=== PATIENT | female | born 1975 | race Caucasian/White ===

== ENCOUNTER 2018-04-24 12:41 | Observation (INO) ==
[2018-04-24] MEDS: MORPHINE 4 MG/1 ML VIAL IV PRN ×3 (15:35→23:42)
[2018-04-24] MEDS: ONDANSETRON 4 MG/2 ML VIAL IV PRN ×3 (15:36→23:42)
[2018-04-24] MEDS ORDERED: traZODone 50 MG TABLET PO PRN (15:52)
[2018-04-24] MEDS ORDERED: CYCLOBENZAPRINE 10 MG TABLET PO PRN (15:52)
[2018-04-24] MEDS ORDERED: GLUCAGON 1 MG VIAL IM PRN (15:56)
[2018-04-24] MEDS ORDERED: DEXTROSE 50% 25 GM/50 ML SYRINGE IV PRN (15:56)
[2018-04-24] MEDS ORDERED: ALBUTEROL/IPRATROPIUM 3 ML NEB RESP TX PRN (16:00)
[2018-04-24] MEDS: NICOTINE 21 MG/24 HR PATCH TRANSDERM SCH (16:00)
[2018-04-24] MEDS ORDERED: MAGNESIUM SULF RIDER 2 GM in PREMIX 1 EACH IV PRN (16:10)
[2018-04-24] MEDS ORDERED: MAGNESIUM SULF RIDER 4 GM in PREMIX 1 EACH IV PRN (16:10)
[2018-04-24] MEDS ORDERED: cefTRIAXone 1,000 MG in SYRINGE 1 EACH IV SCH (20:00)
[2018-04-24] MEDS ORDERED: INSULIN GLARGINE 100 UNIT/ML SUBCUT SCH (21:00)
[2018-04-24] MEDS: DILTIAZEM 60 MG TABLET PO SCH (22:18)
[2018-04-24] MEDS: guaiFENesin/DM ER 600-30 MG TABLET PO SCH (22:19)
[2018-04-24] MEDS: SIMVASTATIN 20 MG TABLET PO SCH (22:19)
[2018-04-24] MEDS: INSULIN REGULAR 100 UNIT/ML SUBCUT SCH ×2 (22:20→22:37)
[2018-04-24] MEDS: CARVEDILOL 3.125 MG TABLET PO SCH (22:37)
[2018-04-25] MEDS: ONDANSETRON 4 MG/2 ML VIAL IV PRN (04:45)
[2018-04-25 05:39] LABS: Basophils # 0.1 10*3/uL (0.0-0.2); Basophils % 0.8 % (0.0-0.8); Eosinophils # 0.4 10*3/uL (0.0-0.87); Eosinophils % 3.4 % (0.00-10.9); Hematocrit 32.4 VOL% (35.7-47.0); Hemoglobin 10.4 GM/DL (12.0-16.0); Immature Granulocytes % 0.3 %; Immature Granulocytes Absolute 0.03 #; Lymphocytes # 2.8 10*3/uL (1.4-4.0); Lymphocytes % 27.6 % (21.3-54.2); Mean Corpuscular HGB Conc 32.1 GM/DL (32-36); Mean Corpuscular Hemoglobin 26 PG (27-34); Mean Platelet Volume 11.1 FL (9.6-12.0); Monocytes # 0.8 10*3/uL (0.11-0.8); Neutrophils # 6.1 10*3/uL (1.4-7.4); Neutrophils % 59.9 % (38.7-73.9); Platelet Count 323 T/CUMM (130-400); Red Blood Count 4.05 MC/CUMM (3.8-5.5); Red Cell Distribution Width 12.7 % (9.3-17.3); White Blood Count 10.2 T/CUMM (4-12)
[2018-04-25 05:45] LABS: Calcium 8.9 MG/DL (8.5-10.1); Osmolality,Calculated 282.8 MOS/KG (273-304)
[2018-04-25] MEDS: MORPHINE 4 MG/1 ML VIAL IV PRN ×2 (08:18→22:45)
[2018-04-25] MEDS ORDERED: FUROSEMIDE 40 MG TABLET PO SCH (09:00)
[2018-04-25] MEDS ORDERED: LISINOPRIL 10 MG TABLET PO SCH (09:00)
[2018-04-25] MEDS ORDERED: ASPIRIN EC 325 MG TABLET PO SCH (09:00)
[2018-04-25] MEDS ORDERED: SODIUM CHLORIDE 0.9% 1,000 ML IV ONE (11:02)
[2018-04-25] MEDS: INSULIN REGULAR 100 UNIT/ML SUBCUT SCH ×4 (11:22→21:54)
[2018-04-25] MEDS ORDERED: ceFAZolin 2,000 MG in PREMIX 1 EACH IV SCH (12:00)
[2018-04-25] MEDS: DILTIAZEM 60 MG TABLET PO SCH ×3 (13:04→21:53)
[2018-04-25] MEDS: PANTOPRAZOLE 40 MG TABLET PO SCH (13:04)
[2018-04-25] MEDS: ESCITALOPRAM 10 MG TABLET PO SCH (13:04)
[2018-04-25] MEDS: CARVEDILOL 3.125 MG TABLET PO SCH ×2 (13:05→17:09)
[2018-04-25] MEDS: guaiFENesin/DM ER 600-30 MG TABLET PO SCH ×2 (13:05→21:53)
[2018-04-25] MEDS: CLOPIDOGREL 75 MG TABLET PO SCH (13:05)
[2018-04-25] MEDS: NICOTINE 21 MG/24 HR PATCH TRANSDERM SCH (13:07)
[2018-04-25] MEDS: SODIUM CHLORIDE 0.9% 1,000 ML IV SCH (13:12)
[2018-04-25] MEDS ORDERED: ASPIRIN EC 81 MG TABLET PO SCH (17:04)
[2018-04-25] MEDS ORDERED: INSULIN GLARGINE 100 UNIT/ML SUBCUT SCH (17:11)
[2018-04-25] MEDS: ENOXAPARIN 40 MG/0.4 ML SYRINGE SUBCUT SCH (18:28)
[2018-04-25] MEDS: SIMVASTATIN 20 MG TABLET PO SCH (21:53)
[2018-04-25] MEDS: INSULIN LISPRO 100 UNIT/ML SUBCUT SCH (21:54)
[2018-04-26] MEDS: SODIUM CHLORIDE 0.9% 1,000 ML IV SCH ×2 (05:30→17:00)
[2018-04-26 05:44] LABS: Basophils # 0.1 10*3/uL (0.0-0.2); Basophils % 0.9 % (0.0-0.8); Eosinophils # 0.3 10*3/uL (0.0-0.87); Hematocrit 29.6 VOL% (35.7-47.0); Hemoglobin 9.2 GM/DL (12.0-16.0); Immature Granulocytes % 0.2 %; Immature Granulocytes Absolute 0.02 #; Lymphocytes # 2.2 10*3/uL (1.4-4.0); Lymphocytes % 27.5 % (21.3-54.2); Mean Corpuscular HGB Conc 31.1 GM/DL (32-36); Mean Corpuscular Hemoglobin 25 PG (27-34); Mean Corpuscular Volume 81.3 FL (87-102); Mean Platelet Volume 11.4 FL (9.6-12.0); Monocytes # 0.7 10*3/uL (0.11-0.8); Monocytes % 8.5 % (1.7-12.7); Neutrophils # 4.7 10*3/uL (1.4-7.4); Neutrophils % 58.9 % (38.7-73.9); Platelet Count 279 T/CUMM (130-400); Red Blood Count 3.64 MC/CUMM (3.8-5.5); Red Cell Distribution Width 12.8 % (9.3-17.3)
[2018-04-26 06:05] LABS: Calcium 8.4 MG/DL (8.5-10.1); Osmolality,Calculated 281.8 MOS/KG (273-304); Thyroid Stimulating Hormone 0.024 uIU/ml (0.358-3.74)
[2018-04-26] MEDS: INSULIN REGULAR 100 UNIT/ML SUBCUT SCH ×3 (09:58→16:59)
[2018-04-26] MEDS: INSULIN LISPRO 100 UNIT/ML SUBCUT SCH ×3 (09:58→17:00)
[2018-04-26] MEDS: ONDANSETRON 4 MG/2 ML VIAL IV PRN (11:40)
[2018-04-26] MEDS: PANTOPRAZOLE 40 MG TABLET PO SCH (13:08)
[2018-04-26] MEDS: CARVEDILOL 3.125 MG TABLET PO SCH ×2 (13:08→16:42)
[2018-04-26] MEDS: DILTIAZEM 60 MG TABLET PO SCH ×2 (13:08→16:40)
[2018-04-26] MEDS: ESCITALOPRAM 10 MG TABLET PO SCH (13:08)
[2018-04-26] MEDS: guaiFENesin/DM ER 600-30 MG TABLET PO SCH (13:08)
[2018-04-26] MEDS: CLOPIDOGREL 75 MG TABLET PO SCH (13:08)
[2018-04-26] MEDS: NICOTINE 21 MG/24 HR PATCH TRANSDERM SCH (13:11)
[2018-04-26] MEDS ORDERED: SODIUM HYPOCHLORITE 0.25% IRRIG 473 ML BOTTLE TOP SCH (15:00)
[2018-04-26] MEDS ORDERED: COLLAGENASE OINT 30 GM TUBE TOP SCH (15:00)
[2018-04-26 16:47] VITALS: BP 117/73
[2018-04-26] MEDS: ENOXAPARIN 40 MG/0.4 ML SYRINGE SUBCUT SCH (17:01)
== END 2018-04-26 16:54 | disposition home health service (06) ==
LOC: EDUNIT# → EDBD → N.ED 12:41 → N.EDINP 15:56 → SUATTDRO 15:56 → INTOOBSV 15:56 → N.TELEN 18:56
PROVIDERS: ADMIT Hospitalist; ATTEND Internal Medicine

== ENCOUNTER 2021-04-03 13:21 | Inpatient (IN) ==
[2021-04-03 15:45] LABS: Albumin 2.6 G/DL (3.4-5.0); Bilirubin,Total 0.4 MG/DL (0.20-1.00); Calcium 8.4 MG/DL (8.5-10.1); Osmolality,Calculated 286.5 MOS/KG (273-304); Potassium 3.7 MMOL/L (3.5-5.1); Total Protein 7.1 G/DL (6.4-8.2)
[2021-04-03 15:51] LABS: INR 1.2; PT Patient Result 12.9 SECS (10.5-12.0)
[2021-04-03 15:53] LABS: Basophils % 0.5 % (0.0-0.8); Eosinophils # 0.1 10*3/uL (0.0-0.87); Eosinophils % 1.1 % (0.00-10.9); Hematocrit 32.2 VOL% (35.7-47.0); Hemoglobin 9.1 GM/DL (12.0-16.0); Immature Granulocytes % 0.2 %; Immature Granulocytes Absolute 0.01 #; Lymphocytes # 1.9 10*3/uL (1.4-4.0); Lymphocytes % 28.9 % (21.3-54.2); Mean Corpuscular HGB Conc 28.3 GM/DL (32-36); Mean Corpuscular Volume 70.9 FL (87-102); Mean Platelet Volume 11.2 FL (9.6-12.0); Monocytes % 6.4 % (1.7-12.7); Neutrophils % 62.9 % (38.7-73.9); Platelet Count 384 T/CUMM (130-400); Red Blood Count 4.54 MC/CUMM (3.8-5.5); Red Cell Distribution Width 15.3 % (9.3-17.3); White Blood Count 6.4 T/CUMM (4-12)
[2021-04-03] MEDS ORDERED: MORPHINE 2 MG/1 ML SYRINGE IV STA (16:23)
[2021-04-03] MEDS ORDERED: MORPHINE 4 MG/1 ML VIAL IV STA (16:40)
[2021-04-03] MEDS ORDERED: NITROGLYCERIN SL 0.4 MG TABLET SL STA (16:42)
[2021-04-03] MEDS ORDERED: FUROSEMIDE 100 MG/10 ML VIAL IV STA (16:55)
[2021-04-03 17:13] LABS: Acanthocytes 1+; Howell-Jolly Bodies Few
[2021-04-03 17:14] LABS: Anisocytosis 2+; Hypochromia 1+; Ovalocytes 1+; Platelet Estimate Increased; Poikilocytosis 1+
[2021-04-03] MEDS ORDERED: ONDANSETRON 4 MG/2 ML VIAL IV PRN (17:20)
[2021-04-03] MEDS ORDERED: DOCUSATE SODIUM 100 MG CAPSULE PO PRN (17:20)
[2021-04-03] MEDS ORDERED: GLUCAGON 1 MG VIAL IM PRN (17:20)
[2021-04-03] MEDS ORDERED: ACETAMINOPHEN 325 MG TABLET PO PRN (17:20)
[2021-04-03] MEDS ORDERED: LACTULOSE 20 GM/30 ML UDCUP PO PRN (17:20)
[2021-04-03] MEDS ORDERED: DEXTROSE 10% 250 ML BAG IV PRN (17:31)
[2021-04-03] MEDS ORDERED: NITROGLYCERIN SL 0.4 MG TABLET SL PRN (17:43)
[2021-04-03] MEDS: ENOXAPARIN 40 MG/0.4 ML SYRINGE SUBCUT SCH (19:00)
[2021-04-03] MEDS: METOCLOPRAMIDE 5 MG TABLET PO SCH (22:12)
[2021-04-03] MEDS: INSULIN REGULAR 100 UNIT/ML SUBCUT SCH (22:13)
[2021-04-03] MEDS: FUROSEMIDE 40 MG/4 ML VIAL IV SCH (22:16)
[2021-04-04] MEDS ORDERED: MORPHINE 4 MG/1 ML VIAL IV ONE ×2 (01:30→11:29)
[2021-04-04 06:19] LABS: Calcium 9.2 MG/DL (8.5-10.1); Osmolality,Calculated 284.4 MOS/KG (273-304); Potassium 3.6 MMOL/L (3.5-5.1); Risk Ratio 4.04; Thyroid Stimulating Hormone 0.218 uIU/ml (0.358-3.74); VLDL Cholesterol 24.2 MG/DL
[2021-04-04 06:23] LABS: Basophils # 0.1 10*3/uL (0.0-0.2); Basophils % 0.8 % (0.0-0.8); Eosinophils # 0.1 10*3/uL (0.0-0.87); Eosinophils % 1.1 % (0.00-10.9); Hematocrit 30.7 VOL% (35.7-47.0); Immature Granulocytes % 0.2 %; Immature Granulocytes Absolute 0.01 #; Lymphocytes # 2.2 10*3/uL (1.4-4.0); Lymphocytes % 35.1 % (21.3-54.2); Mean Corpuscular HGB Conc 28.3 GM/DL (32-36); Mean Corpuscular Volume 70.7 FL (87-102); Mean Platelet Volume 10.9 FL (9.6-12.0); Monocytes % 7.5 % (1.7-12.7); Neutrophils % 55.3 % (38.7-73.9); Platelet Count 368 T/CUMM (130-400); Red Blood Count 4.34 MC/CUMM (3.8-5.5); Red Cell Distribution Width 15.4 % (9.3-17.3); White Blood Count 6.1 T/CUMM (4-12)
[2021-04-04 06:25] LABS: Hemoglobin 8.7 GM/DL (12.0-16.0)
[2021-04-04] MEDS ORDERED: carvediloL 3.125 MG TABLET PO SCH (08:00)
[2021-04-04] MEDS: INSULIN REGULAR 100 UNIT/ML SUBCUT SCH ×4 (08:57→21:04)
[2021-04-04] MEDS: FUROSEMIDE 40 MG/4 ML VIAL IV SCH ×2 (08:58→21:07)
[2021-04-04] MEDS: DAPAGLIFLOZIN 10 MG TABLET PO SCH (10:39)
[2021-04-04] MEDS: CLOPIDOGREL 75 MG TABLET PO SCH (10:39)
[2021-04-04] MEDS: METOCLOPRAMIDE 5 MG TABLET PO SCH ×4 (10:39→21:09)
[2021-04-04] MEDS: ASPIRIN EC 81 MG TABLET PO SCH (10:39)
[2021-04-04] MEDS ORDERED: SKIN HEALING OINT (AQUAPHOR) 50 GM TUBE TOP PRN (11:13)
[2021-04-04] MEDS ORDERED: MORPHINE 4 MG/1 ML VIAL ONE (11:31)
[2021-04-04] MEDS: NICOTINE 21 MG/24 HR PATCH TRANSDERM SCH (11:38)
[2021-04-04] MEDS ORDERED: MAGNESIUM SULF RIDER 4 GM/100 ML PREMIX IV PRN (11:44)
[2021-04-04] MEDS ORDERED: MAGNESIUM SULF RIDER 2 GM/50 ML PREMIX IV PRN (11:44)
[2021-04-04] MEDS ORDERED: HYDROmorphone 2 MG/1 ML VIAL IV ONE (15:41)
[2021-04-04] MEDS: PROMETHAZINE 25 MG TABLET PO PRN ×2 (16:45→23:12)
[2021-04-04] MEDS: ENOXAPARIN 40 MG/0.4 ML SYRINGE SUBCUT SCH (16:45)
[2021-04-04] MEDS: SACUBITRIL/VALSARTAN 49-51 MG TABLET PO SCH (21:01)
[2021-04-04] MEDS: carvediloL 6.25 MG TABLET PO SCH (21:02)
[2021-04-04] MEDS: SIMVASTATIN 20 MG TABLET PO SCH (21:02)
[2021-04-04] MEDS: MAGNESIUM CHLORIDE 64 MG TABLET PO SCH (21:02)
[2021-04-04] MEDS: MORPHINE 4 MG/1 ML VIAL IV PRN (23:58)
[2021-04-05 08:49] LABS: Calcium 8.6 MG/DL (8.5-10.1); Osmolality,Calculated 285.3 MOS/KG (273-304); Potassium 3.6 MMOL/L (3.5-5.1)
[2021-04-05] MEDS: METOCLOPRAMIDE 5 MG TABLET PO SCH ×4 (08:59→21:02)
[2021-04-05] MEDS: CLOPIDOGREL 75 MG TABLET PO SCH (08:59)
[2021-04-05] MEDS: NICOTINE 21 MG/24 HR PATCH TRANSDERM SCH (08:59)
[2021-04-05] MEDS: SACUBITRIL/VALSARTAN 49-51 MG TABLET PO SCH ×2 (09:00→21:02)
[2021-04-05] MEDS: MAGNESIUM CHLORIDE 64 MG TABLET PO SCH ×2 (09:00→21:02)
[2021-04-05] MEDS: DAPAGLIFLOZIN 10 MG TABLET PO SCH (09:00)
[2021-04-05] MEDS: ASPIRIN EC 81 MG TABLET PO SCH (09:00)
[2021-04-05] MEDS: INSULIN REGULAR 100 UNIT/ML SUBCUT SCH ×4 (09:48→21:02)
[2021-04-05] MEDS: FUROSEMIDE 40 MG/4 ML VIAL IV SCH ×2 (09:48→21:07)
[2021-04-05] MEDS: carvediloL 6.25 MG TABLET PO SCH (09:49)
[2021-04-05] MEDS: MORPHINE 4 MG/1 ML VIAL IV PRN ×2 (10:08→15:38)
[2021-04-05 11:52] LABS: Hypochromia 3+; Ovalocytes 1+
[2021-04-05 11:53] LABS: Microcytosis 3+; Platelet Estimate Normal; Polychromasia Slight; Target Cells Few
[2021-04-05 12:12] LABS: Basophils % 0.9 % (0.0-0.8); Eosinophils # 0.1 10*3/uL (0.0-0.87); Eosinophils % 1.9 % (0.00-10.9); Hematocrit 30.3 VOL% (35.7-47.0); Hemoglobin 8.5 GM/DL (12.0-16.0); Immature Granulocytes % 0.2 %; Immature Granulocytes Absolute 0.01 #; Lymphocytes # 1.4 10*3/uL (1.4-4.0); Mean Corpuscular HGB Conc 28.1 GM/DL (32-36); Mean Corpuscular Volume 70.6 FL (87-102); Mean Platelet Volume 11.3 FL (9.6-12.0); Monocytes % 5.8 % (1.7-12.7); Neutrophils % 60.2 % (38.7-73.9); Platelet Count 334 T/CUMM (130-400); Red Blood Count 4.29 MC/CUMM (3.8-5.5); Red Cell Distribution Width 15.4 % (9.3-17.3); White Blood Count 4.7 T/CUMM (4-12)
[2021-04-05] MEDS: ENOXAPARIN 40 MG/0.4 ML SYRINGE SUBCUT SCH (17:56)
[2021-04-05] MEDS: diphenhydrAMINE 50 MG/1 ML VIAL IV PRN (18:25)
[2021-04-05] MEDS: carvediloL 12.5 MG TABLET PO SCH (21:02)
[2021-04-05] MEDS: SIMVASTATIN 20 MG TABLET PO SCH (21:02)
[2021-04-06] MEDS: PROMETHAZINE 25 MG TABLET PO PRN (01:08)
[2021-04-06] MEDS: MORPHINE 4 MG/1 ML VIAL IV PRN ×2 (01:08→10:11)
[2021-04-06 05:48] LABS: Calcium 8.8 MG/DL (8.5-10.1); Osmolality,Calculated 287.3 MOS/KG (273-304); Potassium 3.5 MMOL/L (3.5-5.1)
[2021-04-06 06:23] LABS: Basophils % 0.6 % (0.0-0.8); Eosinophils # 0.1 10*3/uL (0.0-0.87); Eosinophils % 1.8 % (0.00-10.9); Hematocrit 29.6 VOL% (35.7-47.0); Hemoglobin 8.4 GM/DL (12.0-16.0); Immature Granulocytes % 0.2 %; Immature Granulocytes Absolute 0.01 #; Lymphocytes # 1.3 10*3/uL (1.4-4.0); Mean Corpuscular HGB Conc 28.4 GM/DL (32-36); Mean Corpuscular Volume 70.5 FL (87-102); Mean Platelet Volume 10.9 FL (9.6-12.0); Neutrophils % 64.4 % (38.7-73.9); Platelet Count 307 T/CUMM (130-400); Red Cell Distribution Width 15.4 % (9.3-17.3)
[2021-04-06] MEDS: MAGNESIUM CHLORIDE 64 MG TABLET PO SCH (08:43)
[2021-04-06] MEDS: ASPIRIN EC 81 MG TABLET PO SCH (08:43)
[2021-04-06] MEDS: METOCLOPRAMIDE 5 MG TABLET PO SCH ×2 (08:44→11:43)
[2021-04-06] MEDS: DAPAGLIFLOZIN 10 MG TABLET PO SCH (08:44)
[2021-04-06] MEDS: SACUBITRIL/VALSARTAN 49-51 MG TABLET PO SCH (08:44)
[2021-04-06] MEDS: CLOPIDOGREL 75 MG TABLET PO SCH (08:44)
[2021-04-06] MEDS: carvediloL 12.5 MG TABLET PO SCH (08:44)
[2021-04-06] MEDS: INSULIN REGULAR 100 UNIT/ML SUBCUT SCH ×2 (08:47→11:51)
[2021-04-06] MEDS: FUROSEMIDE 40 MG/4 ML VIAL IV SCH (08:51)
[2021-04-06] MEDS: diphenhydrAMINE 50 MG/1 ML VIAL IV PRN (08:52)
[2021-04-06] MEDS: NICOTINE 21 MG/24 HR PATCH TRANSDERM SCH (08:53)
[2021-04-06 12:42] VITALS: BP 97/68
[2021-04-06] MEDS ORDERED: carvediloL 6.25 MG TABLET PO SCH (21:00)
== END 2021-04-06 14:44 | disposition home or self-care (01) | DRG 291 ==
LOC: N.EDINP 13:21 → N.ED 13:21 → SUATTDRO 17:19 → N.EDINP 19:54 → N.TELEN 20:00
PROVIDERS: ADMIT Internal Medicine; ATTEND Internal Medicine

== ENCOUNTER 2021-05-06 14:06 | Inpatient (IN) ==
[2021-05-06] MEDS ORDERED: GLUCAGON 1 MG VIAL IM PRN (16:57)
[2021-05-06] MEDS ORDERED: DEXTROSE 50% 25 GM/50 ML VIAL IV PRN (16:57)
[2021-05-06] MEDS ORDERED: SIMETHICONE CHEW 125 MG TABLET PO PRN (17:26)
[2021-05-06] MEDS ORDERED: BISACODYL 5 MG TABLET PO PRN (17:26)
[2021-05-06] MEDS ORDERED: DOCUSATE SODIUM 100 MG CAPSULE PO PRN (17:26)
[2021-05-06] MEDS ORDERED: ALBUTEROL/IPRATROPIUM 3 ML NEB RESP TX PRN (17:26)
[2021-05-06] MEDS ORDERED: SODIUM CHLORIDE 0.9% 1,000 ML IV SCH (17:30)
[2021-05-06 18:07] LABS: Alanine Aminotransferase 11 U/L (13-56); Albumin 1.3 G/DL (3.4-5.0); Alkaline Phosphatase 91 U/L (45-117); Aspartate Amino Transferase 9 U/L (0-37); Bilirubin,Total < 0.39 MG/DL (0.20-1.00); Blood Urea Nitrogen 39 MG/DL (7-18); Calcium 8.2 MG/DL (8.5-10.1); Carbon Dioxide 19 MMOL/L (21-32); Chloride 119 MMOL/L (98-107); Estimated Glom Filtration Rate 25 ML/MIN; Glucose 135 MG/DL (74-106); Osmolality,Calculated 296.8 MOS/KG (273-304); Potassium 3.7 MMOL/L (3.5-5.1); Sodium 144 MMOL/L (136-145); Total Protein 7.2 G/DL (6.4-8.2)
[2021-05-06 18:10] LABS: Basophils % 0.4 % (0.0-0.8); Eosinophils # 0.1 10*3/uL (0.0-0.87); Eosinophils % 1.3 % (0.00-10.9); Hematocrit 32.5 VOL% (35.7-47.0); Hemoglobin 9.1 GM/DL (12.0-16.0); Immature Granulocytes % 0.5 %; Immature Granulocytes Absolute 0.04 #; Lymphocytes # 1.4 10*3/uL (1.4-4.0); Mean Corpuscular Volume 74.4 FL (87-102); Mean Platelet Volume 10.5 FL (9.6-12.0); Monocytes # 0.4 10*3/uL (0.11-0.8); Monocytes % 4.3 % (1.7-12.7); Neutrophils % 77.5 % (38.7-73.9); Platelet Count 350 T/CUMM (130-400); Red Blood Count 4.37 MC/CUMM (3.8-5.5); Red Cell Distribution Width 21.4 % (9.3-17.3); White Blood Count 8.5 T/CUMM (4-12)
[2021-05-06 18:15] LABS: Anisocytosis 1+; Hypochromia 1+; Microcytosis 1+; Platelet Estimate Adequate
[2021-05-06] MEDS: PROMETHAZINE 25 MG/1 ML VIAL IM PRN (18:25)
[2021-05-06] MEDS: PIPERACILLIN/TAZOBACTAM 3,375 MG in SODIUM CHLORIDE 0.9% 100 ML IV SCH (18:25)
[2021-05-06] MEDS ORDERED: ALBUMIN 25% 25 GM/100 ML VIAL IV ONE (20:00)
[2021-05-06] MEDS: BENZTROPINE 1 MG TABLET PO SCH (20:56)
[2021-05-06] MEDS: SIMVASTATIN 20 MG TABLET PO SCH (20:56)
[2021-05-06] MEDS: DILTIAZEM 30 MG TABLET PO SCH (20:56)
[2021-05-06] MEDS: PANTOPRAZOLE 40 MG VIAL IV SCH (20:57)
[2021-05-06] MEDS: ENOXAPARIN 40 MG/0.4 ML SYRINGE SUBCUT SCH (20:57)
[2021-05-06] MEDS: INSULIN LISPRO 100 UNIT/ML SUBCUT SCH (20:58)
[2021-05-06] MEDS: HYDROmorphone 1 MG/1 ML SYRINGE IV PRN (20:59)
[2021-05-06] MEDS ORDERED: VANCOMYCIN INJ 2,500 MG in SODIUM CHLORIDE 0.9% 500 ML IV ONE (21:00)
[2021-05-06] MEDS: SODIUM CHLOR 0.45% KCL 20 MEQ 20 MEQ/1,000 ML BAG IV SCH (23:26)
[2021-05-07] MEDS: PIPERACILLIN/TAZOBACTAM 3,375 MG in SODIUM CHLORIDE 0.9% 100 ML IV SCH ×2 (02:09→09:45)
[2021-05-07] MEDS: HYDROmorphone 1 MG/1 ML SYRINGE IV PRN ×5 (05:08→22:19)
[2021-05-07 05:51] LABS: Risk Ratio 2.43
[2021-05-07 05:54] LABS: Basophils % 0.4 % (0.0-0.8); Eosinophils # 0.1 10*3/uL (0.0-0.87); Eosinophils % 1.1 % (0.00-10.9); Hemoglobin 9.1 GM/DL (12.0-16.0); Immature Granulocytes % 0.5 %; Immature Granulocytes Absolute 0.04 #; Lymphocytes # 1.7 10*3/uL (1.4-4.0); Lymphocytes % 19.6 % (21.3-54.2); Mean Corpuscular HGB Conc 28.7 GM/DL (32-36); Mean Corpuscular Volume 73.9 FL (87-102); Mean Platelet Volume 10.5 FL (9.6-12.0); Monocytes # 0.4 10*3/uL (0.11-0.8); Monocytes % 4.8 % (1.7-12.7); Neutrophils % 73.6 % (38.7-73.9); Platelet Count 334 T/CUMM (130-400); Red Blood Count 4.29 MC/CUMM (3.8-5.5); Red Cell Distribution Width 21.6 % (9.3-17.3); White Blood Count 8.4 T/CUMM (4-12)
[2021-05-07 05:55] LABS: Hematocrit 31.7 VOL% (35.7-47.0)
[2021-05-07 06:00] LABS: Alanine Aminotransferase < 6 U/L (13-56); Albumin 1.8 G/DL (3.4-5.0); Alkaline Phosphatase 88 U/L (45-117); Aspartate Amino Transferase 8 U/L (0-37); Blood Urea Nitrogen 40 MG/DL (7-18); Calcium 8.6 MG/DL (8.5-10.1); Carbon Dioxide 19 MMOL/L (21-32); Chloride 118 MMOL/L (98-107); Estimated Glom Filtration Rate 28 ML/MIN; Glucose 93 MG/DL (74-106); Potassium 3.4 MMOL/L (3.5-5.1); Sodium 143 MMOL/L (136-145); Total Protein 7.2 G/DL (6.4-8.2)
[2021-05-07 06:09] LABS: Hypochromia 1+; Microcytosis 2+; Ovalocytes Few; Platelet Estimate Normal
[2021-05-07] MEDS: INSULIN LISPRO 100 UNIT/ML SUBCUT SCH ×4 (07:33→21:52)
[2021-05-07] MEDS: CLOPIDOGREL 75 MG TABLET PO SCH (08:05)
[2021-05-07] MEDS: ASPIRIN EC 81 MG TABLET PO SCH (08:05)
[2021-05-07] MEDS: ESCITALOPRAM 10 MG TABLET PO SCH (08:05)
[2021-05-07] MEDS ORDERED: VANCOMYCIN INJ 1,500 MG in SODIUM CHLORIDE 0.9% 500 ML IV PRN (08:06)
[2021-05-07] MEDS ORDERED: PANTOPRAZOLE 40 MG TABLET PO SCH (09:00)
[2021-05-07] MEDS: PANTOPRAZOLE 40 MG VIAL IV SCH ×2 (09:45→20:29)
[2021-05-07] MEDS: DILTIAZEM 30 MG TABLET PO SCH ×3 (09:46→20:29)
[2021-05-07] MEDS: NYSTATIN/TRIAMCINOLONE CREAM 15 GM TUBE TOP SCH ×2 (09:46→21:52)
[2021-05-07] MEDS: BENZTROPINE 1 MG TABLET PO SCH ×2 (09:46→20:29)
[2021-05-07] MEDS: PROMETHAZINE 25 MG/1 ML VIAL IM PRN (14:19)
[2021-05-07] MEDS: CEFEPIME 1,000 MG in SODIUM CHLORIDE 0.9% 100 ML IV SCH (17:40)
[2021-05-07] MEDS: SIMVASTATIN 20 MG TABLET PO SCH (20:29)
[2021-05-07] MEDS: CYCLOBENZAPRINE 10 MG TABLET PO PRN (20:29)
[2021-05-07] MEDS: ENOXAPARIN 40 MG/0.4 ML SYRINGE SUBCUT SCH (20:29)
[2021-05-07] MEDS: SODIUM CHLOR 0.45% KCL 20 MEQ 20 MEQ/1,000 ML BAG IV SCH (21:52)
[2021-05-08] MEDS: PROMETHAZINE 25 MG/1 ML VIAL IM PRN ×4 (04:23→21:16)
[2021-05-08] MEDS: HYDROmorphone 1 MG/1 ML SYRINGE IV PRN ×4 (04:23→21:17)
[2021-05-08] MEDS: CEFEPIME 1,000 MG in SODIUM CHLORIDE 0.9% 100 ML IV SCH ×3 (05:38→21:17)
[2021-05-08 06:21] LABS: Basophils % 0.4 % (0.0-0.8); Eosinophils # 0.1 10*3/uL (0.0-0.87); Eosinophils % 1.1 % (0.00-10.9); Hemoglobin 8.6 GM/DL (12.0-16.0); Immature Granulocytes % 0.6 %; Immature Granulocytes Absolute 0.05 #; Lymphocytes # 1.1 10*3/uL (1.4-4.0); Lymphocytes % 12.4 % (21.3-54.2); Mean Corpuscular HGB Conc 28.4 GM/DL (32-36); Mean Corpuscular Volume 73.9 FL (87-102); Mean Platelet Volume 10.8 FL (9.6-12.0); Monocytes # 0.5 10*3/uL (0.11-0.8); Monocytes % 5.4 % (1.7-12.7); Neutrophils % 80.1 % (38.7-73.9); Platelet Count 299 T/CUMM (130-400); Red Cell Distribution Width 21.9 % (9.3-17.3); White Blood Count 8.5 T/CUMM (4-12)
[2021-05-08 06:23] LABS: Hematocrit 30.3 VOL% (35.7-47.0)
[2021-05-08 06:24] LABS: Phosphorous 4.7 MG/DL (2.5-4.9)
[2021-05-08 06:25] LABS: Alanine Aminotransferase < 6 U/L (13-56); Albumin 1.4 G/DL (3.4-5.0); Alkaline Phosphatase 90 U/L (45-117); Aspartate Amino Transferase 9 U/L (0-37); Blood Urea Nitrogen 31 MG/DL (7-18); Calcium 8.2 MG/DL (8.5-10.1); Carbon Dioxide 19 MMOL/L (21-32); Chloride 120 MMOL/L (98-107); Estimated Glom Filtration Rate 34 ML/MIN; Glucose 101 MG/DL (74-106); Osmolality,Calculated 296.6 MOS/KG (273-304); Sodium 146 MMOL/L (136-145); Total Protein 6.9 G/DL (6.4-8.2)
[2021-05-08 06:40] LABS: % Iron Saturation 15.7 % (18-50); Ferritin 37.9 ng/mL (8-252)
[2021-05-08 07:12] LABS: Platelet Estimate Decreased
[2021-05-08 07:34] LABS: Mucus,Urine Occasional /LPF (Occasional); RBC,Urine 235 /HPF (0-4); Squamous Epithelial Cell,Urine Occasional /HPF (0-10)
[2021-05-08 07:35] LABS: Bilirubin,Urine Negative (Negative); Blood, Urine Large mg/dL (Negative); Glucose,Urine (UA) Negative (Negative); Ketones,Urine Negative (Negative); Nitrite,Urine Negative (Negative); Protein,Urine 30 mg/dL (Negative); Urine Appearance Slightly Cloudy (Clear); Urine Color Yellow (Yellow); Urine Specific Gravity 1.015 (1.001-1.035); Urine pH 7.5 (4.5-8.0)
[2021-05-08 07:36] LABS: Urine Urobilinogen 0.2 eU/dL (<2.0)
[2021-05-08] MEDS: PANTOPRAZOLE 40 MG VIAL IV SCH ×2 (10:11→21:16)
[2021-05-08] MEDS: INSULIN LISPRO 100 UNIT/ML SUBCUT SCH ×3 (12:54→21:39)
[2021-05-08] MEDS: DILTIAZEM 30 MG TABLET PO SCH ×3 (13:16→21:16)
[2021-05-08] MEDS: ESCITALOPRAM 10 MG TABLET PO SCH (13:16)
[2021-05-08] MEDS: CLOPIDOGREL 75 MG TABLET PO SCH (13:16)
[2021-05-08] MEDS: ASPIRIN EC 81 MG TABLET PO SCH (13:16)
[2021-05-08] MEDS: BENZTROPINE 1 MG TABLET PO SCH ×2 (13:17→21:16)
[2021-05-08] MEDS: NYSTATIN/TRIAMCINOLONE CREAM 15 GM TUBE TOP SCH ×2 (13:18→21:17)
[2021-05-08] MEDS: ZINC OXIDE PASTE 113 GM TUBE TOP SCH ×2 (15:06→21:17)
[2021-05-08] MEDS: NICOTINE 21 MG/24 HR PATCH TRANSDERM SCH (18:07)
[2021-05-08] MEDS: SODIUM CHLOR 0.45% KCL 20 MEQ 20 MEQ/1,000 ML BAG IV SCH (18:08)
[2021-05-08] MEDS: ENOXAPARIN 40 MG/0.4 ML SYRINGE SUBCUT SCH (21:15)
[2021-05-08] MEDS: SIMVASTATIN 20 MG TABLET PO SCH (21:16)
[2021-05-08] MEDS: buPROPion SR 100 MG TABLET PO SCH (21:16)
[2021-05-08] MEDS: traZODone 50 MG TABLET PO PRN (21:16)
[2021-05-09] MEDS: HYDROmorphone 1 MG/1 ML SYRINGE IV PRN ×5 (01:27→20:54)
[2021-05-09] MEDS: SODIUM CHLOR 0.45% KCL 20 MEQ 20 MEQ/1,000 ML BAG IV SCH ×2 (03:00→14:31)
[2021-05-09] MEDS: PROMETHAZINE 25 MG/1 ML VIAL IM PRN ×4 (04:47→21:49)
[2021-05-09] MEDS: CEFEPIME 1,000 MG in SODIUM CHLORIDE 0.9% 100 ML IV SCH ×3 (05:30→21:01)
[2021-05-09 07:24] LABS: Basophils % 0.5 % (0.0-0.8); Eosinophils # 0.1 10*3/uL (0.0-0.87); Eosinophils % 1.2 % (0.00-10.9); Hematocrit 32.7 VOL% (35.7-47.0); Hemoglobin 9.1 GM/DL (12.0-16.0); Immature Granulocytes % 0.5 %; Immature Granulocytes Absolute 0.04 #; Lymphocytes # 1.3 10*3/uL (1.4-4.0); Lymphocytes % 16.9 % (21.3-54.2); Mean Corpuscular HGB Conc 27.8 GM/DL (32-36); Mean Corpuscular Volume 75.5 FL (87-102); Mean Platelet Volume 11.1 FL (9.6-12.0); Monocytes # 0.3 10*3/uL (0.11-0.8); Monocytes % 4.5 % (1.7-12.7); Neutrophils % 76.4 % (38.7-73.9); Platelet Count 290 T/CUMM (130-400); Red Blood Count 4.33 MC/CUMM (3.8-5.5); Red Cell Distribution Width 22.1 % (9.3-17.3); White Blood Count 7.4 T/CUMM (4-12)
[2021-05-09 07:28] LABS: Alanine Aminotransferase < 6 U/L (13-56); Albumin 1.5 G/DL (3.4-5.0); Alkaline Phosphatase 88 U/L (45-117); Aspartate Amino Transferase 11 U/L (0-37); Blood Urea Nitrogen 26 MG/DL (7-18); Calcium 8.7 MG/DL (8.5-10.1); Carbon Dioxide 17 MMOL/L (21-32); Chloride 119 MMOL/L (98-107); Estimated Glom Filtration Rate 41 ML/MIN; Glucose 117 MG/DL (74-106); Osmolality,Calculated 293.7 MOS/KG (273-304); Potassium 4.2 MMOL/L (3.5-5.1); Sodium 145 MMOL/L (136-145)
[2021-05-09] MEDS: INSULIN LISPRO 100 UNIT/ML SUBCUT SCH ×4 (08:05→21:02)
[2021-05-09] MEDS: ASPIRIN EC 81 MG TABLET PO SCH (09:44)
[2021-05-09] MEDS: DILTIAZEM 30 MG TABLET PO SCH ×3 (09:45→20:52)
[2021-05-09] MEDS: ESCITALOPRAM 10 MG TABLET PO SCH (09:45)
[2021-05-09] MEDS: BENZTROPINE 1 MG TABLET PO SCH ×2 (09:45→21:49)
[2021-05-09] MEDS: CLOPIDOGREL 75 MG TABLET PO SCH (09:45)
[2021-05-09] MEDS: buPROPion SR 100 MG TABLET PO SCH (09:45)
[2021-05-09] MEDS: NYSTATIN/TRIAMCINOLONE CREAM 15 GM TUBE TOP SCH ×2 (09:46→21:01)
[2021-05-09] MEDS: ZINC OXIDE PASTE 113 GM TUBE TOP SCH ×2 (09:46→21:01)
[2021-05-09] MEDS: NICOTINE 21 MG/24 HR PATCH TRANSDERM SCH (09:47)
[2021-05-09] MEDS: PANTOPRAZOLE 40 MG VIAL IV SCH ×2 (09:53→20:53)
[2021-05-09] MEDS: busPIRone 5 MG TABLET PO SCH ×2 (14:28→20:53)
[2021-05-09] MEDS: ENOXAPARIN 40 MG/0.4 ML SYRINGE SUBCUT SCH (20:52)
[2021-05-09] MEDS: SIMVASTATIN 20 MG TABLET PO SCH (20:53)
[2021-05-09] MEDS: traZODone 50 MG TABLET PO PRN (20:53)
[2021-05-10] MEDS: HYDROmorphone 1 MG/1 ML SYRINGE IV PRN ×5 (02:06→20:54)
[2021-05-10] MEDS: PROMETHAZINE 25 MG/1 ML VIAL IM PRN ×3 (03:31→18:08)
[2021-05-10 05:39] LABS: Basophils # 0.1 10*3/uL (0.0-0.2); Basophils % 0.8 % (0.0-0.8); Eosinophils # 0.1 10*3/uL (0.0-0.87); Eosinophils % 1.3 % (0.00-10.9); Hematocrit 31.7 VOL% (35.7-47.0); Immature Granulocytes % 0.4 %; Immature Granulocytes Absolute 0.03 #; Lymphocytes # 1.1 10*3/uL (1.4-4.0); Lymphocytes % 13.9 % (21.3-54.2); Mean Corpuscular HGB Conc 28.4 GM/DL (32-36); Mean Corpuscular Volume 75.5 FL (87-102); Mean Platelet Volume 11.1 FL (9.6-12.0); Monocytes # 0.3 10*3/uL (0.11-0.8); Monocytes % 4.3 % (1.7-12.7); Neutrophils % 79.3 % (38.7-73.9); Platelet Count 273 T/CUMM (130-400); Red Cell Distribution Width 22.5 % (9.3-17.3); White Blood Count 7.9 T/CUMM (4-12)
[2021-05-10] MEDS: SODIUM CHLOR 0.45% KCL 20 MEQ 20 MEQ/1,000 ML BAG IV SCH ×2 (05:41→18:05)
[2021-05-10 05:49] LABS: Alanine Aminotransferase < 9 U/L (13-56); Albumin 1.5 G/DL (3.4-5.0); Alkaline Phosphatase 87 U/L (45-117); Aspartate Amino Transferase 11 U/L (0-37); Blood Urea Nitrogen 21 MG/DL (7-18); Calcium 8.8 MG/DL (8.5-10.1); Carbon Dioxide 17 MMOL/L (21-32); Chloride 121 MMOL/L (98-107); Estimated Glom Filtration Rate 50 ML/MIN; Glucose 129 MG/DL (74-106); Osmolality,Calculated 292.7 MOS/KG (273-304); Potassium 4.5 MMOL/L (3.5-5.1); Sodium 145 MMOL/L (136-145); Total Protein 7.3 G/DL (6.4-8.2)
[2021-05-10] MEDS: CEFEPIME 1,000 MG in SODIUM CHLORIDE 0.9% 100 ML IV SCH ×3 (06:09→21:58)
[2021-05-10] MEDS: INSULIN LISPRO 100 UNIT/ML SUBCUT SCH ×4 (08:23→22:25)
[2021-05-10] MEDS: buPROPion SR 100 MG TABLET PO SCH (10:18)
[2021-05-10] MEDS: ASPIRIN EC 81 MG TABLET PO SCH (10:18)
[2021-05-10] MEDS: CHOLECALCIFEROL 1,000 UNIT TABLET PO SCH (10:18)
[2021-05-10] MEDS: CLOPIDOGREL 75 MG TABLET PO SCH (10:18)
[2021-05-10] MEDS: DILTIAZEM 30 MG TABLET PO SCH ×3 (10:18→20:52)
[2021-05-10] MEDS: ZINC OXIDE PASTE 113 GM TUBE TOP SCH ×2 (10:19→20:55)
[2021-05-10] MEDS: busPIRone 5 MG TABLET PO SCH ×2 (10:19→20:53)
[2021-05-10] MEDS: ESCITALOPRAM 10 MG TABLET PO SCH (10:19)
[2021-05-10] MEDS: BENZTROPINE 1 MG TABLET PO SCH ×2 (10:19→22:25)
[2021-05-10] MEDS: NICOTINE 21 MG/24 HR PATCH TRANSDERM SCH (10:20)
[2021-05-10] MEDS: NYSTATIN/TRIAMCINOLONE CREAM 15 GM TUBE TOP SCH ×2 (10:20→20:55)
[2021-05-10] MEDS: PANTOPRAZOLE 40 MG VIAL IV SCH ×2 (10:23→20:53)
[2021-05-10] MEDS: traZODone 50 MG TABLET PO PRN (20:52)
[2021-05-10] MEDS: SIMVASTATIN 20 MG TABLET PO SCH (20:53)
[2021-05-10] MEDS: ENOXAPARIN 40 MG/0.4 ML SYRINGE SUBCUT SCH (20:53)
[2021-05-11] MEDS: PROMETHAZINE 25 MG/1 ML VIAL IM PRN ×2 (00:18→06:19)
[2021-05-11] MEDS: HYDROmorphone 1 MG/1 ML SYRINGE IV PRN ×3 (02:00→13:59)
[2021-05-11] MEDS: SODIUM CHLOR 0.45% KCL 20 MEQ 20 MEQ/1,000 ML BAG IV SCH ×2 (05:01→22:46)
[2021-05-11] MEDS: CEFEPIME 1,000 MG in SODIUM CHLORIDE 0.9% 100 ML IV SCH ×3 (05:50→22:45)
[2021-05-11] MEDS: INSULIN LISPRO 100 UNIT/ML SUBCUT SCH ×4 (07:37→23:04)
[2021-05-11 07:53] LABS: Alanine Aminotransferase < 9 U/L (13-56); Albumin 1.7 G/DL (3.4-5.0); Alkaline Phosphatase 88 U/L (45-117); Aspartate Amino Transferase 9 U/L (0-37); Blood Urea Nitrogen 20 MG/DL (7-18); Calcium 8.7 MG/DL (8.5-10.1); Carbon Dioxide 18 MMOL/L (21-32); Chloride 119 MMOL/L (98-107); Estimated Glom Filtration Rate 54 ML/MIN; Glucose 167 MG/DL (74-106); Osmolality,Calculated 289.1 MOS/KG (273-304); Potassium 4.9 MMOL/L (3.5-5.1); Sodium 142 MMOL/L (136-145); Total Protein 7.3 G/DL (6.4-8.2)
[2021-05-11 07:54] LABS: Basophils % 0.4 % (0.0-0.8); Eosinophils # 0.1 10*3/uL (0.0-0.87); Eosinophils % 1.1 % (0.00-10.9); Immature Granulocytes % 0.3 %; Immature Granulocytes Absolute 0.03 #; Lymphocytes # 0.9 10*3/uL (1.4-4.0); Lymphocytes % 9.8 % (21.3-54.2); Mean Corpuscular HGB Conc 28.5 GM/DL (32-36); Mean Corpuscular Volume 75.5 FL (87-102); Mean Platelet Volume 11.6 FL (9.6-12.0); Monocytes # 0.3 10*3/uL (0.11-0.8); Monocytes % 3.7 % (1.7-12.7); Neutrophils % 84.7 % (38.7-73.9); Platelet Count 260 T/CUMM (130-400); Red Blood Count 4.37 MC/CUMM (3.8-5.5); Red Cell Distribution Width 23.1 % (9.3-17.3); White Blood Count 8.9 T/CUMM (4-12)
[2021-05-11 07:58] LABS: Hemoglobin 9.4 GM/DL (12.0-16.0)
[2021-05-11] MEDS ORDERED: hydrOXYzine HCL 25 MG/1 ML VIAL IM PRN (08:21)
[2021-05-11] MEDS: VANCOMYCIN INJ 1,500 MG in SODIUM CHLORIDE 0.9% 500 ML IV SCH (09:09)
[2021-05-11] MEDS: diphenhydrAMINE 50 MG/1 ML VIAL IV PRN (09:13)
[2021-05-11] MEDS: ASPIRIN EC 81 MG TABLET PO SCH (09:52)
[2021-05-11] MEDS: busPIRone 5 MG TABLET PO SCH (09:52)
[2021-05-11] MEDS: DILTIAZEM 30 MG TABLET PO SCH ×3 (09:52→22:43)
[2021-05-11] MEDS: CLOPIDOGREL 75 MG TABLET PO SCH (09:53)
[2021-05-11] MEDS: NYSTATIN/TRIAMCINOLONE CREAM 15 GM TUBE TOP SCH ×2 (09:53→22:44)
[2021-05-11] MEDS: buPROPion SR 100 MG TABLET PO SCH (09:53)
[2021-05-11] MEDS: ZINC OXIDE PASTE 113 GM TUBE TOP SCH ×2 (09:53→22:44)
[2021-05-11] MEDS: CHOLECALCIFEROL 1,000 UNIT TABLET PO SCH (09:53)
[2021-05-11] MEDS: ESCITALOPRAM 10 MG TABLET PO SCH (09:53)
[2021-05-11] MEDS: BENZTROPINE 1 MG TABLET PO SCH ×2 (09:53→22:43)
[2021-05-11] MEDS: LACTATED RINGERS 1,000 ML IV SCH (11:31)
[2021-05-11] MEDS ORDERED: MIDAZOLAM 2 MG/2 ML VIAL ONE (12:13)
[2021-05-11] MEDS ORDERED: propofoL 200 MG/20 ML VIAL IV ONE (12:25)
[2021-05-11] MEDS ORDERED: ETOMIDATE 20 MG/10 ML VIAL IV ONE (12:25)
[2021-05-11] MEDS ORDERED: LIDOCAINE 2% 5 ML VIAL ONE (12:25)
[2021-05-11] MEDS: PANTOPRAZOLE 40 MG VIAL IV SCH ×2 (13:52→22:44)
[2021-05-11] MEDS: NICOTINE 21 MG/24 HR PATCH TRANSDERM SCH (13:59)
[2021-05-11] MEDS: ENOXAPARIN 40 MG/0.4 ML SYRINGE SUBCUT SCH (22:44)
[2021-05-11] MEDS: SIMVASTATIN 20 MG TABLET PO SCH (22:45)
[2021-05-12] MEDS: diphenhydrAMINE 50 MG/1 ML VIAL IV PRN (00:46)
[2021-05-12] MEDS: HYDROmorphone 1 MG/1 ML SYRINGE IV PRN ×6 (00:47→20:46)
[2021-05-12] MEDS: PROMETHAZINE 25 MG/1 ML VIAL IM PRN (00:47)
[2021-05-12] MEDS: ONDANSETRON 4 MG/2 ML VIAL IV PRN ×2 (04:46→20:45)
[2021-05-12 05:49] LABS: Basophils # 0.1 10*3/uL (0.0-0.2); Basophils % 0.8 % (0.0-0.8); Eosinophils # 0.1 10*3/uL (0.0-0.87); Eosinophils % 0.9 % (0.00-10.9); Hemoglobin 8.9 GM/DL (12.0-16.0); Immature Granulocytes % 0.3 %; Immature Granulocytes Absolute 0.03 #; Lymphocytes # 1.3 10*3/uL (1.4-4.0); Lymphocytes % 14.7 % (21.3-54.2); Mean Corpuscular HGB Conc 28.3 GM/DL (32-36); Mean Corpuscular Volume 75.9 FL (87-102); Mean Platelet Volume 11.8 FL (9.6-12.0); Monocytes # 0.4 10*3/uL (0.11-0.8); Monocytes % 4.4 % (1.7-12.7); Neutrophils % 78.9 % (38.7-73.9); Platelet Count 242 T/CUMM (130-400); Red Blood Count 4.15 MC/CUMM (3.8-5.5); Red Cell Distribution Width 23.7 % (9.3-17.3)
[2021-05-12 05:57] LABS: Alanine Aminotransferase < 9 U/L (13-56); Albumin 1.6 G/DL (3.4-5.0); Alkaline Phosphatase 80 U/L (45-117); Aspartate Amino Transferase 7 U/L (0-37); Blood Urea Nitrogen 18 MG/DL (7-18); Calcium 8.5 MG/DL (8.5-10.1); Carbon Dioxide 16 MMOL/L (21-32); Chloride 120 MMOL/L (98-107); Estimated Glom Filtration Rate 59 ML/MIN; Glucose 140 MG/DL (74-106); Osmolality,Calculated 286.1 MOS/KG (273-304); Potassium 4.9 MMOL/L (3.5-5.1); Sodium 142 MMOL/L (136-145); Total Protein 7.1 G/DL (6.4-8.2)
[2021-05-12] MEDS: CEFEPIME 1,000 MG in SODIUM CHLORIDE 0.9% 100 ML IV SCH ×3 (05:59→22:03)
[2021-05-12 06:01] LABS: Hematocrit 31.5 VOL% (35.7-47.0)
[2021-05-12] MEDS: INSULIN LISPRO 100 UNIT/ML SUBCUT SCH ×4 (07:58→20:59)
[2021-05-12] MEDS: VANCOMYCIN INJ 1,500 MG in SODIUM CHLORIDE 0.9% 500 ML IV SCH (08:39)
[2021-05-12] MEDS: NYSTATIN/TRIAMCINOLONE CREAM 15 GM TUBE TOP SCH ×2 (09:00→20:59)
[2021-05-12] MEDS: ZINC OXIDE PASTE 113 GM TUBE TOP SCH ×2 (09:00→20:59)
[2021-05-12] MEDS: ESCITALOPRAM 10 MG TABLET PO SCH (11:37)
[2021-05-12] MEDS: ASPIRIN EC 81 MG TABLET PO SCH (11:37)
[2021-05-12] MEDS: BENZTROPINE 1 MG TABLET PO SCH ×2 (11:37→20:50)
[2021-05-12] MEDS: DILTIAZEM 30 MG TABLET PO SCH ×3 (11:37→20:50)
[2021-05-12] MEDS: CLOPIDOGREL 75 MG TABLET PO SCH (11:39)
[2021-05-12] MEDS: buPROPion SR 100 MG TABLET PO SCH (11:40)
[2021-05-12] MEDS: CHOLECALCIFEROL 1,000 UNIT TABLET PO SCH (11:40)
[2021-05-12] MEDS: NICOTINE 21 MG/24 HR PATCH TRANSDERM SCH (11:45)
[2021-05-12] MEDS: SODIUM CHLOR 0.45% KCL 20 MEQ 20 MEQ/1,000 ML BAG IV SCH ×2 (11:55→21:01)
[2021-05-12] MEDS ORDERED: ROCURONIUM 50 MG/5 ML VIAL IV ONE (12:04)
[2021-05-12] MEDS ORDERED: SEVOFLURANE 1 UNIT/15 MINUTE INH ONE ×2 (12:04→15:08)
[2021-05-12] MEDS ORDERED: SUCCINYLCHOLINE 200 MG/10 ML VIAL ONE (12:04)
[2021-05-12] MEDS ORDERED: LIDOCAINE 2% 5 ML VIAL ONE (12:04)
[2021-05-12] MEDS ORDERED: propofoL 200 MG/20 ML VIAL IV ONE (12:04)
[2021-05-12] MEDS ORDERED: MIDAZOLAM 2 MG/2 ML VIAL ONE (12:05)
[2021-05-12] MEDS ORDERED: fentaNYL 100 MCG/2 ML VIAL ONE (12:05)
[2021-05-12] MEDS ORDERED: LACTATED RINGERS 1,000 ML IV SCH (12:30)
[2021-05-12] MEDS ORDERED: PROMETHAZINE 25 MG/1 ML VIAL ONE (13:19)
[2021-05-12] MEDS ORDERED: ALBUMIN 5% 12.5 GM/250 ML VIAL IV ONE (13:39)
[2021-05-12] MEDS ORDERED: PHENYLEPHRINE 1 MG/10 ML SYRINGE IV ONE (14:22)
[2021-05-12] MEDS ORDERED: TISSUE ADHESIVE 1 EACH APPLICATOR TOP ONE (14:28)
[2021-05-12] MEDS: LACTATED RINGERS 1,000 ML IV SCH (15:18)
[2021-05-12] MEDS: PANTOPRAZOLE 40 MG VIAL IV SCH ×2 (15:18→20:48)
[2021-05-12] MEDS ORDERED: DEXTROSE 50% 25 GM/50 ML VIAL IV PRN (16:02)
[2021-05-12] MEDS: ENOXAPARIN 40 MG/0.4 ML SYRINGE SUBCUT SCH (20:49)
[2021-05-12] MEDS: SIMVASTATIN 20 MG TABLET PO SCH (20:50)
[2021-05-13] MEDS: HYDROmorphone 1 MG/1 ML SYRINGE IV PRN ×7 (01:03→23:52)
[2021-05-13] MEDS: PROMETHAZINE 25 MG/1 ML VIAL IM PRN ×4 (01:08→20:06)
[2021-05-13 04:23] LABS: Arterial Base Excess iSTAT -9 MMOL/L (-2.5-2.5); Arterial Bicarbonate iSTAT 15.4 MMOL/L (20-26); Arterial O2 Saturation iSTAT 96 % (95-100); Arterial PCO2 iSTAT 28 MM HG (35-48); Arterial PO2 iSTAT 86 MM HG (80-95); Arterial Total CO2 iSTAT 16 MMO/L (23-27); Arterial pH iSTAT 7.348 (7.35-7.45)
[2021-05-13] MEDS: ONDANSETRON 4 MG/2 ML VIAL IV PRN (05:14)
[2021-05-13] MEDS: CEFEPIME 1,000 MG in SODIUM CHLORIDE 0.9% 100 ML IV SCH ×3 (05:16→23:07)
[2021-05-13] MEDS: INSULIN LISPRO 100 UNIT/ML SUBCUT SCH ×4 (06:43→20:12)
[2021-05-13 07:48] LABS: Alanine Aminotransferase < 6 U/L (13-56); Albumin 1.6 G/DL (3.4-5.0); Alkaline Phosphatase 66 U/L (45-117); Aspartate Amino Transferase 8 U/L (0-37); Basophils # 0.1 10*3/uL (0.0-0.2); Basophils % 0.5 % (0.0-0.8); Blood Urea Nitrogen 17 MG/DL (7-18); Calcium 8.1 MG/DL (8.5-10.1); Carbon Dioxide 17 MMOL/L (21-32); Chloride 121 MMOL/L (98-107); Eosinophils # 0.1 10*3/uL (0.0-0.87); Eosinophils % 0.9 % (0.00-10.9); Estimated Glom Filtration Rate 59 ML/MIN; Glucose 106 MG/DL (74-106); Immature Granulocytes % 0.4 %; Immature Granulocytes Absolute 0.04 #; Lymphocytes # 0.8 10*3/uL (1.4-4.0); Lymphocytes % 7.2 % (21.3-54.2); Mean Corpuscular HGB Conc 28.1 GM/DL (32-36); Mean Corpuscular Volume 76.6 FL (87-102); Mean Platelet Volume 11.1 FL (9.6-12.0); Monocytes # 0.5 10*3/uL (0.11-0.8); Monocytes % 4.5 % (1.7-12.7); Neutrophils % 86.5 % (38.7-73.9); Osmolality,Calculated 284.1 MOS/KG (273-304); Platelet Count 206 T/CUMM (130-400); Potassium 5.2 MMOL/L (3.5-5.1); Red Blood Count 3.94 MC/CUMM (3.8-5.5); Red Cell Distribution Width 23.9 % (9.3-17.3); Sodium 142 MMOL/L (136-145); Total Protein 6.5 G/DL (6.4-8.2); White Blood Count 11.1 T/CUMM (4-12)
[2021-05-13 07:49] LABS: Hematocrit 30.2 VOL% (35.7-47.0); Hemoglobin 8.5 GM/DL (12.0-16.0)
[2021-05-13] MEDS: CLOPIDOGREL 75 MG TABLET PO SCH (09:46)
[2021-05-13] MEDS: DILTIAZEM 30 MG TABLET PO SCH ×3 (09:47→20:11)
[2021-05-13] MEDS: ESCITALOPRAM 10 MG TABLET PO SCH (10:36)
[2021-05-13] MEDS: ASPIRIN EC 81 MG TABLET PO SCH (10:36)
[2021-05-13] MEDS: BENZTROPINE 1 MG TABLET PO SCH ×2 (10:36→20:11)
[2021-05-13] MEDS: PANTOPRAZOLE 40 MG VIAL IV SCH ×2 (10:37→20:05)
[2021-05-13] MEDS: NICOTINE 21 MG/24 HR PATCH TRANSDERM SCH (10:37)
[2021-05-13] MEDS: CHOLECALCIFEROL 1,000 UNIT TABLET PO SCH (10:37)
[2021-05-13] MEDS: ZINC OXIDE PASTE 113 GM TUBE TOP SCH ×2 (10:38→20:11)
[2021-05-13] MEDS: NYSTATIN/TRIAMCINOLONE CREAM 15 GM TUBE TOP SCH ×2 (10:38→20:12)
[2021-05-13] MEDS: buPROPion SR 100 MG TABLET PO SCH (10:38)
[2021-05-13] MEDS: SODIUM CHLORIDE 0.45% 1,000 ML IV SCH (11:40)
[2021-05-13] MEDS: ENOXAPARIN 40 MG/0.4 ML SYRINGE SUBCUT SCH (20:05)
[2021-05-13] MEDS: traZODone 50 MG TABLET PO PRN (20:11)
[2021-05-13] MEDS: SIMVASTATIN 20 MG TABLET PO SCH (20:13)
[2021-05-14] MEDS: diphenhydrAMINE 50 MG/1 ML VIAL IV PRN ×2 (00:58→21:46)
[2021-05-14] MEDS: SODIUM CHLORIDE 0.45% 1,000 ML IV SCH ×2 (01:08→12:57)
[2021-05-14] MEDS: PROMETHAZINE 25 MG/1 ML VIAL IM PRN ×2 (02:59→12:50)
[2021-05-14] MEDS: HYDROmorphone 1 MG/1 ML SYRINGE IV PRN ×6 (03:00→21:45)
[2021-05-14] MEDS: ONDANSETRON 4 MG/2 ML VIAL IV PRN ×2 (06:11→09:14)
[2021-05-14] MEDS: CEFEPIME 1,000 MG in SODIUM CHLORIDE 0.9% 100 ML IV SCH ×3 (06:12→21:47)
[2021-05-14 07:02] LABS: Calcium 8.2 MG/DL (8.5-10.1); Osmolality,Calculated 284.3 MOS/KG (273-304); Potassium 4.7 MMOL/L (3.5-5.1)
[2021-05-14 07:20] LABS: Basophils # 0.1 10*3/uL (0.0-0.2); Basophils % 0.7 % (0.0-0.8); Eosinophils # 0.1 10*3/uL (0.0-0.87); Eosinophils % 1.2 % (0.00-10.9); Immature Granulocytes % 0.4 %; Immature Granulocytes Absolute 0.04 #; Lymphocytes # 1.1 10*3/uL (1.4-4.0); Lymphocytes % 10.4 % (21.3-54.2); Mean Corpuscular HGB Conc 28.4 GM/DL (32-36); Mean Corpuscular Volume 76.4 FL (87-102); Monocytes # 0.7 10*3/uL (0.11-0.8); Monocytes % 6.9 % (1.7-12.7); Neutrophils % 80.4 % (38.7-73.9); Platelet Count 177 T/CUMM (130-400); Red Blood Count 3.82 MC/CUMM (3.8-5.5); Red Cell Distribution Width 24.2 % (9.3-17.3); White Blood Count 10.2 T/CUMM (4-12)
[2021-05-14 07:24] LABS: Hematocrit 29.2 VOL% (35.7-47.0); Hemoglobin 8.3 GM/DL (12.0-16.0)
[2021-05-14 07:26] LABS: Hypochromia 1+; Microcytosis 2+; Ovalocytes Few
[2021-05-14 07:27] LABS: Platelet Estimate Adequate
[2021-05-14] MEDS: PANTOPRAZOLE 40 MG VIAL IV SCH ×2 (09:14→21:45)
[2021-05-14] MEDS: INSULIN LISPRO 100 UNIT/ML SUBCUT SCH ×4 (09:15→21:46)
[2021-05-14] MEDS: ASPIRIN EC 81 MG TABLET PO SCH (09:54)
[2021-05-14] MEDS: NICOTINE 21 MG/24 HR PATCH TRANSDERM SCH (09:55)
[2021-05-14] MEDS: buPROPion SR 100 MG TABLET PO SCH (09:55)
[2021-05-14] MEDS: DILTIAZEM 30 MG TABLET PO SCH ×3 (09:55→21:46)
[2021-05-14] MEDS: NYSTATIN/TRIAMCINOLONE CREAM 15 GM TUBE TOP SCH ×2 (09:55→21:47)
[2021-05-14] MEDS: CLOPIDOGREL 75 MG TABLET PO SCH (09:55)
[2021-05-14] MEDS: BENZTROPINE 1 MG TABLET PO SCH ×2 (09:55→21:46)
[2021-05-14] MEDS: ZINC OXIDE PASTE 113 GM TUBE TOP SCH ×2 (09:55→21:47)
[2021-05-14] MEDS: CHOLECALCIFEROL 1,000 UNIT TABLET PO SCH (09:55)
[2021-05-14] MEDS: ESCITALOPRAM 10 MG TABLET PO SCH (09:55)
[2021-05-14] MEDS: PROMETHAZINE INJ 25 MG in SODIUM CHLORIDE 0.9% 50 ML IV PRN ×2 (17:38→21:48)
[2021-05-14] MEDS: ENOXAPARIN 40 MG/0.4 ML SYRINGE SUBCUT SCH (21:45)
[2021-05-14] MEDS: SIMVASTATIN 20 MG TABLET PO SCH (21:46)
[2021-05-14] MEDS: traZODone 50 MG TABLET PO PRN (21:46)
[2021-05-15] MEDS: SODIUM CHLORIDE 0.45% 1,000 ML IV SCH ×2 (00:30→04:20)
[2021-05-15] MEDS: PROMETHAZINE INJ 25 MG in SODIUM CHLORIDE 0.9% 50 ML IV PRN ×6 (00:43→23:32)
[2021-05-15] MEDS: HYDROmorphone 1 MG/1 ML SYRINGE IV PRN ×6 (00:43→21:03)
[2021-05-15 05:35] LABS: Calcium 7.9 MG/DL (8.5-10.1); Osmolality,Calculated 282.4 MOS/KG (273-304); Phosphorous 2.2 MG/DL (2.5-4.9); Potassium 4.6 MMOL/L (3.5-5.1)
[2021-05-15] MEDS: CEFEPIME 1,000 MG in SODIUM CHLORIDE 0.9% 100 ML IV SCH ×2 (05:50→14:52)
[2021-05-15] MEDS: INSULIN LISPRO 100 UNIT/ML SUBCUT SCH ×4 (07:49→23:41)
[2021-05-15] MEDS: PANTOPRAZOLE 40 MG VIAL IV SCH ×2 (08:33→21:06)
[2021-05-15] MEDS: CLOPIDOGREL 75 MG TABLET PO SCH (08:34)
[2021-05-15] MEDS: BENZTROPINE 1 MG TABLET PO SCH ×2 (08:34→23:31)
[2021-05-15] MEDS: buPROPion SR 100 MG TABLET PO SCH (08:34)
[2021-05-15] MEDS: ASPIRIN EC 81 MG TABLET PO SCH (08:34)
[2021-05-15] MEDS: ESCITALOPRAM 10 MG TABLET PO SCH (08:34)
[2021-05-15] MEDS: DILTIAZEM 30 MG TABLET PO SCH ×3 (08:34→23:31)
[2021-05-15] MEDS: NYSTATIN/TRIAMCINOLONE CREAM 15 GM TUBE TOP SCH ×2 (08:35→23:40)
[2021-05-15] MEDS: NICOTINE 21 MG/24 HR PATCH TRANSDERM SCH (08:35)
[2021-05-15] MEDS: ZINC OXIDE PASTE 113 GM TUBE TOP SCH ×2 (08:35→21:06)
[2021-05-15] MEDS: CHOLECALCIFEROL 1,000 UNIT TABLET PO SCH (08:35)
[2021-05-15] MEDS ORDERED: VANCOMYCIN INJ 1,000 MG in SODIUM CHLORIDE 0.9% 250 ML IV SCH (10:00)
[2021-05-15] MEDS: VANCOMYCIN INJ 1,500 MG in SODIUM CHLORIDE 0.9% 500 ML IV SCH (10:50)
[2021-05-15] MEDS ORDERED: MAGNESIUM SULF RIDER 2 GM/50 ML PREMIX IV ONE (11:00)
[2021-05-15] MEDS: SCOPOLAMINE 1.5 MG PATCH TRANSDERM SCH (16:07)
[2021-05-15] MEDS: ENOXAPARIN 40 MG/0.4 ML SYRINGE SUBCUT SCH (21:03)
[2021-05-15] MEDS: DOCUSATE SODIUM 100 MG CAPSULE PO SCH (23:31)
[2021-05-15] MEDS: SIMVASTATIN 20 MG TABLET PO SCH (23:31)
[2021-05-15] MEDS: POLYETHYLENE GLYCOL POWDER 17 GM PACK PO SCH (23:32)
[2021-05-16] MEDS: HYDROmorphone 1 MG/1 ML SYRINGE IV PRN ×7 (00:03→20:44)
[2021-05-16] MEDS: CEFEPIME 1,000 MG in SODIUM CHLORIDE 0.9% 100 ML IV SCH ×4 (00:04→22:00)
[2021-05-16] MEDS: SODIUM CHLORIDE 0.45% 1,000 ML IV SCH (03:11)
[2021-05-16] MEDS: INSULIN LISPRO 100 UNIT/ML SUBCUT SCH ×4 (08:02→23:39)
[2021-05-16] MEDS: PROMETHAZINE INJ 25 MG in SODIUM CHLORIDE 0.9% 50 ML IV PRN ×3 (08:20→20:41)
[2021-05-16] MEDS: CHOLECALCIFEROL 1,000 UNIT TABLET PO SCH (08:24)
[2021-05-16] MEDS: DILTIAZEM 30 MG TABLET PO SCH ×3 (08:25→20:37)
[2021-05-16] MEDS: ESCITALOPRAM 10 MG TABLET PO SCH (08:26)
[2021-05-16] MEDS: DOCUSATE SODIUM 100 MG CAPSULE PO SCH ×2 (08:26→20:44)
[2021-05-16] MEDS: LINACLOTIDE 145 MCG CAPSULE PO SCH (08:27)
[2021-05-16] MEDS: BENZTROPINE 1 MG TABLET PO SCH ×2 (08:27→20:37)
[2021-05-16] MEDS: CLOPIDOGREL 75 MG TABLET PO SCH (08:27)
[2021-05-16] MEDS: POLYETHYLENE GLYCOL POWDER 17 GM PACK PO SCH ×2 (08:27→20:44)
[2021-05-16] MEDS: ASPIRIN EC 81 MG TABLET PO SCH (08:27)
[2021-05-16] MEDS: buPROPion SR 100 MG TABLET PO SCH (08:27)
[2021-05-16] MEDS: ZINC OXIDE PASTE 113 GM TUBE TOP SCH ×2 (08:28→22:00)
[2021-05-16] MEDS: NICOTINE 21 MG/24 HR PATCH TRANSDERM SCH (08:28)
[2021-05-16] MEDS: NYSTATIN/TRIAMCINOLONE CREAM 15 GM TUBE TOP SCH ×2 (08:29→22:01)
[2021-05-16] MEDS: VANCOMYCIN INJ 1,500 MG in SODIUM CHLORIDE 0.9% 500 ML IV SCH (10:46)
[2021-05-16] MEDS: PANTOPRAZOLE 40 MG VIAL IV SCH ×2 (10:46→20:41)
[2021-05-16] MEDS: diphenhydrAMINE 50 MG/1 ML VIAL IV PRN (13:00)
[2021-05-16] MEDS: ENOXAPARIN 40 MG/0.4 ML SYRINGE SUBCUT SCH (20:39)
[2021-05-16] MEDS: SIMVASTATIN 20 MG TABLET PO SCH (20:44)
[2021-05-17] MEDS: HYDROmorphone 1 MG/1 ML SYRINGE IV PRN ×7 (00:17→21:39)
[2021-05-17] MEDS: PROMETHAZINE INJ 25 MG in SODIUM CHLORIDE 0.9% 50 ML IV PRN ×3 (00:40→15:37)
[2021-05-17] MEDS: CEFEPIME 1,000 MG in SODIUM CHLORIDE 0.9% 100 ML IV SCH ×3 (05:08→23:51)
[2021-05-17] MEDS: INSULIN LISPRO 100 UNIT/ML SUBCUT SCH ×4 (08:08→21:22)
[2021-05-17] MEDS: LINACLOTIDE 145 MCG CAPSULE PO SCH (08:22)
[2021-05-17] MEDS: ASPIRIN EC 81 MG TABLET PO SCH (10:18)
[2021-05-17] MEDS: DOCUSATE SODIUM 100 MG CAPSULE PO SCH ×2 (10:19→21:39)
[2021-05-17] MEDS: DILTIAZEM 30 MG TABLET PO SCH ×3 (10:19→21:39)
[2021-05-17] MEDS: ESCITALOPRAM 10 MG TABLET PO SCH (10:20)
[2021-05-17] MEDS: NICOTINE 21 MG/24 HR PATCH TRANSDERM SCH (10:21)
[2021-05-17] MEDS: buPROPion SR 100 MG TABLET PO SCH (10:22)
[2021-05-17] MEDS: CLOPIDOGREL 75 MG TABLET PO SCH (10:22)
[2021-05-17] MEDS: CHOLECALCIFEROL 1,000 UNIT TABLET PO SCH (10:22)
[2021-05-17] MEDS: POLYETHYLENE GLYCOL POWDER 17 GM PACK PO SCH (10:22)
[2021-05-17] MEDS: PANTOPRAZOLE 40 MG VIAL IV SCH ×2 (10:32→21:42)
[2021-05-17 10:37] LABS: Calcium 8.5 MG/DL (8.5-10.1); Osmolality,Calculated 282.3 MOS/KG (273-304); Potassium 4.6 MMOL/L (3.5-5.1)
[2021-05-17 10:44] LABS: Basophils # 0.1 10*3/uL (0.0-0.2); Basophils % 0.5 % (0.0-0.8); Eosinophils # 0.2 10*3/uL (0.0-0.87); Eosinophils % 2.3 % (0.00-10.9); Hematocrit 35.3 VOL% (35.7-47.0); Hemoglobin 10.1 GM/DL (12.0-16.0); Immature Granulocytes % 0.4 %; Immature Granulocytes Absolute 0.04 #; Lymphocytes % 9.6 % (21.3-54.2); Mean Corpuscular HGB Conc 28.6 GM/DL (32-36); Mean Corpuscular Volume 75.9 FL (87-102); Monocytes # 0.5 10*3/uL (0.11-0.8); Monocytes % 4.7 % (1.7-12.7); Neutrophils % 82.5 % (38.7-73.9); Platelet Count 231 T/CUMM (130-400); Red Blood Count 4.65 MC/CUMM (3.8-5.5); Red Cell Distribution Width 25.4 % (9.3-17.3); White Blood Count 10.3 T/CUMM (4-12)
[2021-05-17] MEDS: NYSTATIN/TRIAMCINOLONE CREAM 15 GM TUBE TOP SCH ×2 (10:50→21:39)
[2021-05-17] MEDS: ZINC OXIDE PASTE 113 GM TUBE TOP SCH ×2 (10:50→21:39)
[2021-05-17 11:36] LABS: Anisocytosis 1+; Platelet Estimate Normal
[2021-05-17] MEDS: BENZTROPINE 1 MG TABLET PO SCH ×2 (11:39→21:39)
[2021-05-17] MEDS: VANCOMYCIN INJ 1,500 MG in SODIUM CHLORIDE 0.9% 500 ML IV SCH (11:40)
[2021-05-17] MEDS: SODIUM CHLORIDE 0.45% 1,000 ML IV SCH ×3 (13:31→20:17)
[2021-05-17] MEDS ORDERED: SUCCINYLCHOLINE 200 MG/10 ML VIAL ONE (18:20)
[2021-05-17] MEDS ORDERED: ETOMIDATE 40 MG/20 ML VIAL IV ONE (18:20)
[2021-05-17] MEDS ORDERED: ROCURONIUM 50 MG/5 ML VIAL IV ONE (18:20)
[2021-05-17] MEDS ORDERED: propofoL 200 MG/20 ML VIAL IV ONE (18:20)
[2021-05-17] MEDS ORDERED: LIDOCAINE 2% 5 ML VIAL ONE (18:20)
[2021-05-17] MEDS ORDERED: MIDAZOLAM 2 MG/2 ML VIAL ONE (18:30)
[2021-05-17] MEDS ORDERED: HYDROmorphone 1 MG/1 ML SYRINGE IV PRN (18:39)
[2021-05-17] MEDS ORDERED: diphenhydrAMINE 50 MG/1 ML VIAL IV PRN (18:39)
[2021-05-17] MEDS ORDERED: MEPERIDINE 25 MG/1 ML VIAL IV PRN (18:39)
[2021-05-17] MEDS ORDERED: ONDANSETRON 4 MG/2 ML VIAL IV PRN (18:39)
[2021-05-17] MEDS ORDERED: PROMETHAZINE INJ 25 MG in SODIUM CHLORIDE 0.9% 50 ML IV PRN (18:39)
[2021-05-17] MEDS ORDERED: fentaNYL 100 MCG/2 ML VIAL ONE (18:56)
[2021-05-17] MEDS ORDERED: ALBUMIN 5% 25.0 GM/500 ML VIAL IV ONE (19:17)
[2021-05-17] MEDS ORDERED: LACTATED RINGERS 1,000 ML IV ONE (19:34)
[2021-05-17] MEDS ORDERED: PHENYLEPHRINE 1 MG/10 ML SYRINGE IV ONE (19:34)
[2021-05-17] MEDS ORDERED: GLYCOPYRROLATE 0.4 MG/2 ML VIAL ONE (19:48)
[2021-05-17] MEDS ORDERED: NEOSTIGMINE 10 MG/10 ML VIAL ONE (19:48)
[2021-05-17] MEDS ORDERED: SEVOFLURANE 1 UNIT/15 MINUTE INH ONE (19:55)
[2021-05-17] MEDS ORDERED: PROMETHAZINE 25 MG/1 ML VIAL ONE (20:19)
[2021-05-17] MEDS ORDERED: PHENYLEPHRINE DRIP 20 MG/250 ML PREMIX IV ONE (20:40)
[2021-05-17] MEDS: SIMVASTATIN 20 MG TABLET PO SCH (21:39)
[2021-05-17] MEDS: ENOXAPARIN 40 MG/0.4 ML SYRINGE SUBCUT SCH (21:39)
[2021-05-18] MEDS: HYDROmorphone 1 MG/1 ML SYRINGE IV PRN ×5 (00:11→21:15)
[2021-05-18] MEDS: PROMETHAZINE INJ 25 MG in SODIUM CHLORIDE 0.9% 50 ML IV PRN ×2 (04:48→21:09)
[2021-05-18 05:49] LABS: Potassium 4.1 MMOL/L (3.5-5.1)
[2021-05-18 05:50] LABS: Osmolality,Calculated 281.1 MOS/KG (273-304)
[2021-05-18] MEDS: CEFEPIME 1,000 MG in SODIUM CHLORIDE 0.9% 100 ML IV SCH ×3 (05:56→22:43)
[2021-05-18] MEDS: DEXTROSE 10% 250 ML BAG IV PRN (08:07)
[2021-05-18] MEDS ORDERED: MAGNESIUM SULF RIDER 4 GM/100 ML PREMIX IV PRN (08:20)
[2021-05-18] MEDS ORDERED: MAGNESIUM SULF RIDER 2 GM/50 ML PREMIX IV PRN (08:20)
[2021-05-18] MEDS: DILTIAZEM 30 MG TABLET PO SCH ×3 (09:20→21:22)
[2021-05-18] MEDS: ASPIRIN EC 81 MG TABLET PO SCH (09:20)
[2021-05-18] MEDS: INSULIN LISPRO 100 UNIT/ML SUBCUT SCH ×4 (09:20→21:23)
[2021-05-18] MEDS: LINACLOTIDE 145 MCG CAPSULE PO SCH (09:20)
[2021-05-18] MEDS: ESCITALOPRAM 10 MG TABLET PO SCH (09:21)
[2021-05-18] MEDS: BENZTROPINE 1 MG TABLET PO SCH ×2 (09:21→21:22)
[2021-05-18] MEDS: DOCUSATE SODIUM 100 MG CAPSULE PO SCH ×2 (09:21→21:23)
[2021-05-18] MEDS: NICOTINE 21 MG/24 HR PATCH TRANSDERM SCH (09:22)
[2021-05-18] MEDS: NYSTATIN/TRIAMCINOLONE CREAM 15 GM TUBE TOP SCH ×2 (09:22→21:23)
[2021-05-18] MEDS: CLOPIDOGREL 75 MG TABLET PO SCH (09:22)
[2021-05-18] MEDS: ZINC OXIDE PASTE 113 GM TUBE TOP SCH ×2 (09:22→21:22)
[2021-05-18] MEDS: buPROPion SR 100 MG TABLET PO SCH (09:23)
[2021-05-18] MEDS: CHOLECALCIFEROL 1,000 UNIT TABLET PO SCH (09:23)
[2021-05-18] MEDS: PANTOPRAZOLE 40 MG VIAL IV SCH ×2 (09:23→21:10)
[2021-05-18] MEDS: SCOPOLAMINE 1.5 MG PATCH TRANSDERM SCH (09:23)
[2021-05-18] MEDS: POLYETHYLENE GLYCOL POWDER 17 GM PACK PO SCH (09:24)
[2021-05-18] MEDS ORDERED: GLUCAGON 1 MG VIAL IM PRN (09:34)
[2021-05-18] MEDS ORDERED: DEXTROSE 50% 25 GM/50 ML VIAL IV PRN (09:34)
[2021-05-18] MEDS: SODIUM CHLORIDE 0.45% 1,000 ML IV SCH (13:33)
[2021-05-18] MEDS: LACTATED RINGERS 1,000 ML IV SCH (15:46)
[2021-05-18] MEDS: SODIUM BICARBONATE 650 MG TABLET PO SCH ×2 (16:26→21:21)
[2021-05-18] MEDS: diphenhydrAMINE 50 MG/1 ML VIAL IV PRN (21:10)
[2021-05-18] MEDS: traZODone 50 MG TABLET PO PRN (21:21)
[2021-05-18] MEDS: SIMVASTATIN 20 MG TABLET PO SCH (21:21)
[2021-05-18] MEDS: ENOXAPARIN 40 MG/0.4 ML SYRINGE SUBCUT SCH (21:22)
[2021-05-19] MEDS: HYDROmorphone 1 MG/1 ML SYRINGE IV PRN ×4 (00:55→17:37)
[2021-05-19] MEDS: diphenhydrAMINE 50 MG/1 ML VIAL IV PRN ×2 (05:26→21:37)
[2021-05-19] MEDS: PROMETHAZINE INJ 25 MG in SODIUM CHLORIDE 0.9% 50 ML IV PRN ×2 (05:26→11:37)
[2021-05-19 05:40] LABS: Basophils % 0.3 % (0.0-0.8); Eosinophils # 0.1 10*3/uL (0.0-0.87); Eosinophils % 1.4 % (0.00-10.9); Hematocrit 27.2 VOL% (35.7-47.0); Hemoglobin 7.9 GM/DL (12.0-16.0); Immature Granulocytes % 0.8 %; Immature Granulocytes Absolute 0.06 #; Lymphocytes # 0.6 10*3/uL (1.4-4.0); Lymphocytes % 7.5 % (21.3-54.2); Mean Corpuscular Volume 75.6 FL (87-102); Monocytes # 0.5 10*3/uL (0.11-0.8); Monocytes % 6.8 % (1.7-12.7); Neutrophils % 83.2 % (38.7-73.9); Platelet Count 206 T/CUMM (130-400); Red Cell Distribution Width 26.2 % (9.3-17.3)
[2021-05-19 05:57] LABS: Acanthocytes Few; Calcium 8.2 MG/DL (8.5-10.1); Hypochromia 1+; Microcytosis 2+; Osmolality,Calculated 284.1 MOS/KG (273-304); Ovalocytes Few
[2021-05-19 08:42] LABS: Arterial Base Excess iSTAT -10 MMOL/L (-2.5-2.5); Arterial Bicarbonate iSTAT 14.2 MMOL/L (20-26); Arterial O2 Saturation iSTAT 98 % (95-100); Arterial PCO2 iSTAT 25 MM HG (35-48); Arterial PO2 iSTAT 98 MM HG (80-95); Arterial Total CO2 iSTAT 15 MMO/L (23-27); Arterial pH iSTAT 7.367 (7.35-7.45)
[2021-05-19] MEDS: INSULIN LISPRO 100 UNIT/ML SUBCUT SCH ×4 (08:50→21:35)
[2021-05-19] MEDS ORDERED: TUBERCULIN SKIN TEST 0.1 ML SYRINGE INTRADERM ONE (08:53)
[2021-05-19] MEDS: ASPIRIN EC 81 MG TABLET PO SCH (08:54)
[2021-05-19] MEDS: DILTIAZEM 30 MG TABLET PO SCH ×3 (08:54→21:31)
[2021-05-19] MEDS: buPROPion SR 100 MG TABLET PO SCH (08:55)
[2021-05-19] MEDS: BENZTROPINE 1 MG TABLET PO SCH ×2 (08:55→21:31)
[2021-05-19] MEDS: CLOPIDOGREL 75 MG TABLET PO SCH (08:55)
[2021-05-19] MEDS: CHOLECALCIFEROL 1,000 UNIT TABLET PO SCH (08:56)
[2021-05-19] MEDS: SODIUM BICARBONATE 650 MG TABLET PO SCH ×3 (08:56→21:31)
[2021-05-19] MEDS: ESCITALOPRAM 10 MG TABLET PO SCH (08:56)
[2021-05-19] MEDS: NICOTINE 21 MG/24 HR PATCH TRANSDERM SCH (08:59)
[2021-05-19] MEDS: LINACLOTIDE 145 MCG CAPSULE PO SCH (08:59)
[2021-05-19] MEDS: PANTOPRAZOLE 40 MG VIAL IV SCH ×2 (09:16→21:32)
[2021-05-19] MEDS: LACTATED RINGERS 1,000 ML IV SCH ×2 (09:17→20:54)
[2021-05-19] MEDS: POLYETHYLENE GLYCOL POWDER 17 GM PACK PO SCH (09:22)
[2021-05-19] MEDS: DOCUSATE SODIUM 100 MG CAPSULE PO SCH ×2 (09:22→21:31)
[2021-05-19] MEDS: ZINC OXIDE PASTE 113 GM TUBE TOP SCH ×2 (09:26→21:39)
[2021-05-19] MEDS: NYSTATIN/TRIAMCINOLONE CREAM 15 GM TUBE TOP SCH ×2 (09:26→21:45)
[2021-05-19] MEDS: CEFEPIME 1,000 MG in SODIUM CHLORIDE 0.9% 100 ML IV SCH ×2 (12:34→21:32)
[2021-05-19] MEDS: ENOXAPARIN 40 MG/0.4 ML SYRINGE SUBCUT SCH (21:31)
[2021-05-19] MEDS: traZODone 50 MG TABLET PO PRN (21:31)
[2021-05-20] MEDS: HYDROmorphone 1 MG/1 ML SYRINGE IV PRN ×4 (01:01→16:33)
[2021-05-20] MEDS ORDERED: PROMETHAZINE 25 MG/1 ML VIAL IV PRN (03:46)
[2021-05-20] MEDS: LACTATED RINGERS 1,000 ML IV SCH ×2 (05:46→21:28)
[2021-05-20] MEDS: CEFEPIME 1,000 MG in SODIUM CHLORIDE 0.9% 100 ML IV SCH ×3 (05:46→21:27)
[2021-05-20 05:48] LABS: Phosphorous 2.5 MG/DL (2.5-4.9)
[2021-05-20 08:15] LABS: Basophils % 0.2 % (0.0-0.8); Eosinophils # 0.1 10*3/uL (0.0-0.87); Eosinophils % 1.4 % (0.00-10.9); Hematocrit 27.3 VOL% (35.7-47.0); Hemoglobin 7.8 GM/DL (12.0-16.0); Immature Granulocytes % 0.8 %; Immature Granulocytes Absolute 0.05 #; Lymphocytes # 0.6 10*3/uL (1.4-4.0); Lymphocytes % 9.4 % (21.3-54.2); Mean Corpuscular HGB Conc 28.6 GM/DL (32-36); Monocytes # 0.5 10*3/uL (0.11-0.8); Monocytes % 7.1 % (1.7-12.7); Neutrophils % 81.1 % (38.7-73.9); Platelet Count 216 T/CUMM (130-400); Red Blood Count 3.59 MC/CUMM (3.8-5.5); Red Cell Distribution Width 26.9 % (9.3-17.3); White Blood Count 6.5 T/CUMM (4-12)
[2021-05-20 08:24] LABS: Calcium 8.3 MG/DL (8.5-10.1); Potassium 4.3 MMOL/L (3.5-5.1)
[2021-05-20] MEDS: INSULIN LISPRO 100 UNIT/ML SUBCUT SCH ×4 (10:56→21:57)
[2021-05-20] MEDS: LINACLOTIDE 145 MCG CAPSULE PO SCH (11:15)
[2021-05-20] MEDS: SODIUM BICARBONATE 650 MG TABLET PO SCH ×3 (11:16→21:27)
[2021-05-20] MEDS: ZINC OXIDE PASTE 113 GM TUBE TOP SCH ×2 (11:17→21:56)
[2021-05-20] MEDS: ESCITALOPRAM 10 MG TABLET PO SCH (11:17)
[2021-05-20] MEDS: ASPIRIN EC 81 MG TABLET PO SCH (11:17)
[2021-05-20] MEDS: BENZTROPINE 1 MG TABLET PO SCH ×2 (11:17→21:27)
[2021-05-20] MEDS: POLYETHYLENE GLYCOL POWDER 17 GM PACK PO SCH (11:18)
[2021-05-20] MEDS: DOCUSATE SODIUM 100 MG CAPSULE PO SCH ×2 (11:19→21:27)
[2021-05-20] MEDS: NICOTINE 21 MG/24 HR PATCH TRANSDERM SCH (11:19)
[2021-05-20] MEDS: CHOLECALCIFEROL 1,000 UNIT TABLET PO SCH (11:20)
[2021-05-20] MEDS: PANTOPRAZOLE 40 MG VIAL IV SCH ×2 (11:20→21:27)
[2021-05-20] MEDS: buPROPion SR 100 MG TABLET PO SCH (11:21)
[2021-05-20] MEDS: CLOPIDOGREL 75 MG TABLET PO SCH (11:21)
[2021-05-20] MEDS: DILTIAZEM 30 MG TABLET PO SCH ×3 (11:29→21:28)
[2021-05-20] MEDS: PROCHLORPERAZINE 10 MG/2 ML VIAL IM PRN (14:07)
[2021-05-20] MEDS: NYSTATIN/TRIAMCINOLONE CREAM 15 GM TUBE TOP SCH ×2 (16:31→22:53)
[2021-05-20] MEDS: ENOXAPARIN 40 MG/0.4 ML SYRINGE SUBCUT SCH (21:27)
[2021-05-20] MEDS: diphenhydrAMINE 50 MG/1 ML VIAL IV PRN (21:28)
[2021-05-21] MEDS: PROCHLORPERAZINE 10 MG/2 ML VIAL IM PRN ×3 (01:13→22:13)
[2021-05-21] MEDS: HYDROmorphone 1 MG/1 ML SYRINGE IV PRN ×4 (01:14→18:44)
[2021-05-21] MEDS: CEFEPIME 1,000 MG in SODIUM CHLORIDE 0.9% 100 ML IV SCH (04:29)
[2021-05-21] MEDS: diphenhydrAMINE 50 MG/1 ML VIAL IV PRN (05:08)
[2021-05-21 06:26] LABS: Calcium 8.1 MG/DL (8.5-10.1); Osmolality,Calculated 292.1 MOS/KG (273-304); Potassium 4.1 MMOL/L (3.5-5.1)
[2021-05-21 06:28] LABS: Basophils % 0.3 % (0.0-0.8); Eosinophils # 0.2 10*3/uL (0.0-0.87); Eosinophils % 2.6 % (0.00-10.9); Hematocrit 28.9 VOL% (35.7-47.0); Hemoglobin 8.4 GM/DL (12.0-16.0); Immature Granulocytes % 0.5 %; Immature Granulocytes Absolute 0.03 #; Lymphocytes # 0.7 10*3/uL (1.4-4.0); Lymphocytes % 11.2 % (21.3-54.2); Mean Corpuscular HGB Conc 29.1 GM/DL (32-36); Mean Corpuscular Volume 75.5 FL (87-102); Monocytes # 0.6 10*3/uL (0.11-0.8); Neutrophils % 75.4 % (38.7-73.9); Platelet Count 232 T/CUMM (130-400); Red Blood Count 3.83 MC/CUMM (3.8-5.5); Red Cell Distribution Width 27.4 % (9.3-17.3); White Blood Count 6.1 T/CUMM (4-12)
[2021-05-21 07:01] LABS: Hypochromia 1+
[2021-05-21 07:02] LABS: Microcytosis 1+; Ovalocytes Slight; Platelet Estimate Normal
[2021-05-21] MEDS: INSULIN LISPRO 100 UNIT/ML SUBCUT SCH ×4 (09:33→21:51)
[2021-05-21] MEDS: LINACLOTIDE 145 MCG CAPSULE PO SCH (09:33)
[2021-05-21] MEDS: POLYETHYLENE GLYCOL POWDER 17 GM PACK PO SCH (09:34)
[2021-05-21] MEDS: NICOTINE 21 MG/24 HR PATCH TRANSDERM SCH (09:34)
[2021-05-21] MEDS: SCOPOLAMINE 1.5 MG PATCH TRANSDERM SCH (09:38)
[2021-05-21] MEDS: buPROPion SR 100 MG TABLET PO SCH (09:39)
[2021-05-21] MEDS: PANTOPRAZOLE 40 MG VIAL IV SCH ×2 (09:39→22:13)
[2021-05-21] MEDS: CHOLECALCIFEROL 1,000 UNIT TABLET PO SCH (09:40)
[2021-05-21] MEDS: ASPIRIN EC 81 MG TABLET PO SCH (09:40)
[2021-05-21] MEDS: CLOPIDOGREL 75 MG TABLET PO SCH (09:40)
[2021-05-21] MEDS: DILTIAZEM 30 MG TABLET PO SCH ×3 (09:40→22:13)
[2021-05-21] MEDS: SODIUM BICARBONATE 650 MG TABLET PO SCH ×3 (09:40→22:11)
[2021-05-21] MEDS: DOCUSATE SODIUM 100 MG CAPSULE PO SCH ×2 (09:40→22:12)
[2021-05-21] MEDS: BENZTROPINE 1 MG TABLET PO SCH ×2 (09:40→22:12)
[2021-05-21] MEDS: ESCITALOPRAM 10 MG TABLET PO SCH (09:41)
[2021-05-21] MEDS: LACTATED RINGERS 1,000 ML IV SCH (11:42)
[2021-05-21] MEDS: NYSTATIN/TRIAMCINOLONE CREAM 15 GM TUBE TOP SCH ×2 (11:42→22:12)
[2021-05-21] MEDS: ZINC OXIDE PASTE 113 GM TUBE TOP SCH ×2 (11:42→22:13)
[2021-05-21] MEDS: ENOXAPARIN 40 MG/0.4 ML SYRINGE SUBCUT SCH (22:10)
[2021-05-22] MEDS: HYDROmorphone 1 MG/1 ML SYRINGE IV PRN ×5 (00:33→20:32)
[2021-05-22] MEDS: PROCHLORPERAZINE 10 MG/2 ML VIAL IM PRN ×3 (03:52→18:38)
[2021-05-22] MEDS: LACTATED RINGERS 1,000 ML IV SCH ×2 (05:05→20:35)
[2021-05-22] MEDS: LINACLOTIDE 145 MCG CAPSULE PO SCH (07:44)
[2021-05-22] MEDS: INSULIN LISPRO 100 UNIT/ML SUBCUT SCH ×4 (08:16→20:34)
[2021-05-22 08:41] LABS: Calcium 8.4 MG/DL (8.5-10.1); Potassium 4.3 MMOL/L (3.5-5.1)
[2021-05-22 08:42] LABS: Basophils % 0.5 % (0.0-0.8); Eosinophils # 0.2 10*3/uL (0.0-0.87); Eosinophils % 3.9 % (0.00-10.9); Hematocrit 29.2 VOL% (35.7-47.0); Hemoglobin 8.4 GM/DL (12.0-16.0); Immature Granulocytes % 0.5 %; Immature Granulocytes Absolute 0.03 #; Lymphocytes % 16.6 % (21.3-54.2); Mean Corpuscular HGB Conc 28.8 GM/DL (32-36); Mean Corpuscular Volume 76.2 FL (87-102); Monocytes # 0.7 10*3/uL (0.11-0.8); Monocytes % 12.1 % (1.7-12.7); Neutrophils % 66.4 % (38.7-73.9); Platelet Count 287 T/CUMM (130-400); Red Blood Count 3.83 MC/CUMM (3.8-5.5); Red Cell Distribution Width 27.8 % (9.3-17.3); White Blood Count 6.1 T/CUMM (4-12)
[2021-05-22] MEDS: CLOPIDOGREL 75 MG TABLET PO SCH (10:05)
[2021-05-22] MEDS: ZINC OXIDE PASTE 113 GM TUBE TOP SCH ×2 (10:05→20:32)
[2021-05-22] MEDS: NYSTATIN/TRIAMCINOLONE CREAM 15 GM TUBE TOP SCH ×2 (10:05→20:32)
[2021-05-22] MEDS: ASPIRIN EC 81 MG TABLET PO SCH (10:05)
[2021-05-22] MEDS: ESCITALOPRAM 10 MG TABLET PO SCH (10:06)
[2021-05-22] MEDS: buPROPion SR 100 MG TABLET PO SCH (10:06)
[2021-05-22] MEDS: DILTIAZEM 30 MG TABLET PO SCH ×3 (10:06→20:31)
[2021-05-22] MEDS: CHOLECALCIFEROL 1,000 UNIT TABLET PO SCH (10:06)
[2021-05-22] MEDS: SODIUM BICARBONATE 650 MG TABLET PO SCH ×3 (10:06→20:31)
[2021-05-22] MEDS: NICOTINE 21 MG/24 HR PATCH TRANSDERM SCH (10:07)
[2021-05-22] MEDS: BENZTROPINE 1 MG TABLET PO SCH ×2 (10:10→20:31)
[2021-05-22] MEDS: PANTOPRAZOLE 40 MG VIAL IV SCH ×2 (10:18→20:33)
[2021-05-22] MEDS: POLYETHYLENE GLYCOL POWDER 17 GM PACK PO SCH (11:06)
[2021-05-22] MEDS: DOCUSATE SODIUM 100 MG CAPSULE PO SCH (11:06)
[2021-05-22] MEDS: DOCUSATE SODIUM 100 MG/10 ML UDCUP PO SCH (20:31)
[2021-05-22] MEDS: ENOXAPARIN 40 MG/0.4 ML SYRINGE SUBCUT SCH (20:31)
[2021-05-23] MEDS: PROCHLORPERAZINE 10 MG/2 ML VIAL IM PRN ×3 (00:24→18:32)
[2021-05-23] MEDS: HYDROmorphone 1 MG/1 ML SYRINGE IV PRN ×4 (00:27→18:31)
[2021-05-23 06:33] LABS: Basophils % 0.5 % (0.0-0.8); Eosinophils # 0.3 10*3/uL (0.0-0.87); Eosinophils % 4.6 % (0.00-10.9); Hematocrit 28.8 VOL% (35.7-47.0); Immature Granulocytes % 0.8 %; Immature Granulocytes Absolute 0.05 #; Mean Corpuscular HGB Conc 28.8 GM/DL (32-36); Mean Corpuscular Volume 76.2 FL (87-102); Mean Platelet Volume 11.6 FL (9.6-12.0); Monocytes # 0.6 10*3/uL (0.11-0.8); Monocytes % 9.9 % (1.7-12.7); Neutrophils % 69.2 % (38.7-73.9); Platelet Count 268 T/CUMM (130-400); Red Blood Count 3.78 MC/CUMM (3.8-5.5); Red Cell Distribution Width 27.4 % (9.3-17.3); White Blood Count 6.3 T/CUMM (4-12)
[2021-05-23 06:39] LABS: Hemoglobin 8.3 GM/DL (12.0-16.0)
[2021-05-23 06:42] LABS: Hypochromia Slight; Microcytosis 1+; Platelet Estimate Normal
[2021-05-23] MEDS: CLOPIDOGREL 75 MG TABLET PO SCH (09:50)
[2021-05-23] MEDS: ASPIRIN EC 81 MG TABLET PO SCH (09:50)
[2021-05-23] MEDS: BENZTROPINE 1 MG TABLET PO SCH ×2 (09:50→20:38)
[2021-05-23] MEDS: DILTIAZEM 30 MG TABLET PO SCH ×3 (09:51→20:38)
[2021-05-23] MEDS: buPROPion SR 100 MG TABLET PO SCH (09:51)
[2021-05-23] MEDS: SODIUM BICARBONATE 650 MG TABLET PO SCH ×3 (09:51→21:00)
[2021-05-23] MEDS: ESCITALOPRAM 10 MG TABLET PO SCH (09:51)
[2021-05-23] MEDS: NICOTINE 21 MG/24 HR PATCH TRANSDERM SCH (09:51)
[2021-05-23] MEDS: CHOLECALCIFEROL 1,000 UNIT TABLET PO SCH (09:51)
[2021-05-23] MEDS: ZINC OXIDE PASTE 113 GM TUBE TOP SCH ×2 (09:52→20:39)
[2021-05-23] MEDS: PANTOPRAZOLE 40 MG VIAL IV SCH ×2 (10:26→20:40)
[2021-05-23] MEDS: INSULIN LISPRO 100 UNIT/ML SUBCUT SCH ×4 (10:27→20:39)
[2021-05-23] MEDS: NYSTATIN/TRIAMCINOLONE CREAM 15 GM TUBE TOP SCH ×2 (10:28→20:39)
[2021-05-23] MEDS: DOCUSATE SODIUM 100 MG/10 ML UDCUP PO SCH ×2 (10:28→20:38)
[2021-05-23] MEDS: POLYETHYLENE GLYCOL POWDER 17 GM PACK PO SCH (10:28)
[2021-05-23] MEDS: LINACLOTIDE 145 MCG CAPSULE PO SCH (10:28)
[2021-05-23 14:19] LABS: Calcium 8.8 MG/DL (8.5-10.1); Osmolality,Calculated 286.3 MOS/KG (273-304); Potassium 4.2 MMOL/L (3.5-5.1)
[2021-05-23] MEDS: LACTATED RINGERS 1,000 ML IV SCH ×2 (17:48→18:24)
[2021-05-23] MEDS: CYCLOBENZAPRINE 10 MG TABLET PO PRN (20:38)
[2021-05-23] MEDS: ENOXAPARIN 40 MG/0.4 ML SYRINGE SUBCUT SCH (20:39)
[2021-05-23] MEDS: traZODone 50 MG TABLET PO PRN (20:59)
[2021-05-24] MEDS: LACTATED RINGERS 1,000 ML IV SCH ×3 (01:59→23:07)
[2021-05-24] MEDS: PROCHLORPERAZINE 10 MG/2 ML VIAL IM PRN ×3 (02:09→17:33)
[2021-05-24] MEDS: HYDROmorphone 1 MG/1 ML SYRINGE IV PRN ×5 (02:11→20:19)
[2021-05-24 05:23] LABS: Basophils % 0.4 % (0.0-0.8); Eosinophils # 0.2 10*3/uL (0.0-0.87); Eosinophils % 3.4 % (0.00-10.9); Hematocrit 27.6 VOL% (35.7-47.0); Immature Granulocytes % 1.3 %; Immature Granulocytes Absolute 0.09 #; Lymphocytes # 0.8 10*3/uL (1.4-4.0); Mean Corpuscular Volume 75.4 FL (87-102); Mean Platelet Volume 11.5 FL (9.6-12.0); Monocytes # 0.6 10*3/uL (0.11-0.8); Monocytes % 8.5 % (1.7-12.7); Neutrophils % 75.4 % (38.7-73.9); Platelet Count 305 T/CUMM (130-400); Red Blood Count 3.66 MC/CUMM (3.8-5.5); Red Cell Distribution Width 27.5 % (9.3-17.3); White Blood Count 6.8 T/CUMM (4-12)
[2021-05-24 05:42] LABS: Calcium 8.1 MG/DL (8.5-10.1); Osmolality,Calculated 290.1 MOS/KG (273-304); Potassium 4.2 MMOL/L (3.5-5.1)
[2021-05-24 05:52] LABS: Hypochromia 1+
[2021-05-24 05:53] LABS: Microcytosis 1+; Ovalocytes Few; Platelet Estimate Normal
[2021-05-24 06:26] LABS: Bacteria,Urine Occasional /HPF (Few); RBC,Urine 17 /HPF (0-4); Squamous Epithelial Cell,Urine Many /HPF (0-10)
[2021-05-24 06:31] LABS: Bilirubin,Urine Negative (Negative); Glucose,Urine (UA) Negative (Negative); Ketones,Urine Negative (Negative); Nitrite,Urine Negative (Negative); Protein,Urine 100 mg/dL (Negative); Urine Appearance Clear (Clear); Urine Color Yellow (Yellow); Urine Specific Gravity 1.025 (1.001-1.035)
[2021-05-24 06:32] LABS: Blood, Urine Small mg/dL (Negative); Urine Urobilinogen 0.2 eU/dL (<2.0)
[2021-05-24] MEDS: INSULIN LISPRO 100 UNIT/ML SUBCUT SCH ×4 (07:46→20:21)
[2021-05-24] MEDS: ASPIRIN EC 81 MG TABLET PO SCH (09:38)
[2021-05-24] MEDS: SODIUM BICARBONATE 650 MG TABLET PO SCH ×2 (09:39→20:19)
[2021-05-24] MEDS: ESCITALOPRAM 10 MG TABLET PO SCH (09:40)
[2021-05-24] MEDS: CHOLECALCIFEROL 1,000 UNIT TABLET PO SCH (09:40)
[2021-05-24] MEDS: BENZTROPINE 1 MG TABLET PO SCH ×2 (09:40→20:19)
[2021-05-24] MEDS: CLOPIDOGREL 75 MG TABLET PO SCH (09:40)
[2021-05-24] MEDS: buPROPion SR 100 MG TABLET PO SCH (09:40)
[2021-05-24] MEDS: POLYETHYLENE GLYCOL POWDER 17 GM PACK PO SCH (09:41)
[2021-05-24] MEDS: DILTIAZEM 30 MG TABLET PO SCH ×3 (09:47→20:19)
[2021-05-24] MEDS: SCOPOLAMINE 1.5 MG PATCH TRANSDERM SCH ×2 (10:02→14:27)
[2021-05-24] MEDS: NICOTINE 21 MG/24 HR PATCH TRANSDERM SCH (10:02)
[2021-05-24] MEDS: PANTOPRAZOLE 40 MG VIAL IV SCH ×2 (10:05→20:20)
[2021-05-24] MEDS: ZINC OXIDE PASTE 113 GM TUBE TOP SCH ×2 (10:07→20:21)
[2021-05-24] MEDS: LINACLOTIDE 145 MCG CAPSULE PO SCH (10:21)
[2021-05-24] MEDS: DOCUSATE SODIUM 100 MG/10 ML UDCUP PO SCH ×2 (10:21→20:19)
[2021-05-24] MEDS: NYSTATIN/TRIAMCINOLONE CREAM 15 GM TUBE TOP SCH ×2 (10:22→20:21)
[2021-05-24] MEDS: cefTRIAXone 1,000 MG in SODIUM CHLORIDE 0.9% 100 ML IV SCH (14:27)
[2021-05-24] MEDS: traZODone 50 MG TABLET PO PRN (20:19)
[2021-05-24] MEDS: CYCLOBENZAPRINE 10 MG TABLET PO PRN (20:19)
[2021-05-24] MEDS: ENOXAPARIN 40 MG/0.4 ML SYRINGE SUBCUT SCH (20:19)
[2021-05-25 05:09] LABS: Basophils % 0.3 % (0.0-0.8); Eosinophils # 0.3 10*3/uL (0.0-0.87); Eosinophils % 4.2 % (0.00-10.9); Hematocrit 26.6 VOL% (35.7-47.0); Hemoglobin 7.7 GM/DL (12.0-16.0); Lymphocytes # 0.8 10*3/uL (1.4-4.0); Mean Corpuscular HGB Conc 28.9 GM/DL (32-36); Mean Corpuscular Volume 75.4 FL (87-102); Mean Platelet Volume 12.3 FL (9.6-12.0); Monocytes # 0.6 10*3/uL (0.11-0.8); Neutrophils % 72.5 % (38.7-73.9); Platelet Count 314 T/CUMM (130-400); Red Blood Count 3.53 MC/CUMM (3.8-5.5); White Blood Count 6.2 T/CUMM (4-12)
[2021-05-25] MEDS: PROCHLORPERAZINE 10 MG/2 ML VIAL IM PRN ×2 (05:11→12:34)
[2021-05-25 05:28] LABS: Band Neutrophils 1 % (0-10); Eosinophils 4 % (0-10); Lymphocytes 11 % (20-55)
[2021-05-25 05:29] LABS: Hypochromia 1+; Microcytosis 1+; Ovalocytes Slight; Polychromasia Slight
[2021-05-25] MEDS: HYDROmorphone 1 MG/1 ML SYRINGE IV PRN ×4 (05:46→18:34)
[2021-05-25 07:43] LABS: Calcium 8.5 MG/DL (8.5-10.1); Osmolality,Calculated 289.1 MOS/KG (273-304); Potassium 4.2 MMOL/L (3.5-5.1)
[2021-05-25] MEDS: POLYETHYLENE GLYCOL POWDER 17 GM PACK PO SCH (08:41)
[2021-05-25] MEDS: LINACLOTIDE 145 MCG CAPSULE PO SCH (08:41)
[2021-05-25] MEDS: PANTOPRAZOLE 40 MG VIAL IV SCH ×2 (08:42→22:17)
[2021-05-25] MEDS: DOCUSATE SODIUM 100 MG/10 ML UDCUP PO SCH ×2 (08:42→22:14)
[2021-05-25] MEDS: CHOLECALCIFEROL 1,000 UNIT TABLET PO SCH (08:42)
[2021-05-25] MEDS: SODIUM BICARBONATE 650 MG TABLET PO SCH ×2 (08:42→22:13)
[2021-05-25] MEDS: ESCITALOPRAM 10 MG TABLET PO SCH (08:43)
[2021-05-25] MEDS: DILTIAZEM 30 MG TABLET PO SCH ×3 (08:43→22:13)
[2021-05-25] MEDS: buPROPion SR 100 MG TABLET PO SCH (08:43)
[2021-05-25] MEDS: BENZTROPINE 1 MG TABLET PO SCH ×2 (08:43→22:13)
[2021-05-25] MEDS: CLOPIDOGREL 75 MG TABLET PO SCH (08:43)
[2021-05-25] MEDS: ASPIRIN EC 81 MG TABLET PO SCH (08:43)
[2021-05-25] MEDS: ZINC OXIDE PASTE 113 GM TUBE TOP SCH ×2 (08:44→22:14)
[2021-05-25] MEDS: NICOTINE 21 MG/24 HR PATCH TRANSDERM SCH (08:44)
[2021-05-25] MEDS: NYSTATIN/TRIAMCINOLONE CREAM 15 GM TUBE TOP SCH ×2 (08:44→22:16)
[2021-05-25] MEDS: INSULIN LISPRO 100 UNIT/ML SUBCUT SCH ×4 (08:44→22:16)
[2021-05-25] MEDS: LACTATED RINGERS 1,000 ML IV SCH (09:07)
[2021-05-25] MEDS: cefTRIAXone 1,000 MG in SODIUM CHLORIDE 0.9% 100 ML IV SCH (14:25)
[2021-05-25] MEDS: SIMVASTATIN 20 MG TABLET PO SCH (22:14)
[2021-05-25] MEDS: ENOXAPARIN 40 MG/0.4 ML SYRINGE SUBCUT SCH (22:15)
[2021-05-26] MEDS: PROMETHAZINE INJ 25 MG in SODIUM CHLORIDE 0.9% 50 ML IV PRN ×3 (04:07→21:43)
[2021-05-26] MEDS: HYDROmorphone 1 MG/1 ML SYRINGE IV PRN ×3 (04:07→21:45)
[2021-05-26 05:43] LABS: Basophils % 0.5 % (0.0-0.8); Eosinophils # 0.2 10*3/uL (0.0-0.87); Eosinophils % 3.3 % (0.00-10.9); Hematocrit 28.4 VOL% (35.7-47.0); Hemoglobin 8.4 GM/DL (12.0-16.0); Immature Granulocytes Absolute 0.06 #; Lymphocytes # 0.8 10*3/uL (1.4-4.0); Lymphocytes % 12.9 % (21.3-54.2); Mean Corpuscular HGB Conc 29.6 GM/DL (32-36); Mean Corpuscular Volume 77.4 FL (87-102); Mean Platelet Volume 11.2 FL (9.6-12.0); Monocytes # 0.5 10*3/uL (0.11-0.8); Monocytes % 7.8 % (1.7-12.7); Neutrophils % 74.5 % (38.7-73.9); Platelet Count 320 T/CUMM (130-400); Red Blood Count 3.67 MC/CUMM (3.8-5.5); Red Cell Distribution Width 28.3 % (9.3-17.3)
[2021-05-26 06:15] LABS: Calcium 8.6 MG/DL (8.5-10.1); Osmolality,Calculated 291.8 MOS/KG (273-304); Potassium 4.2 MMOL/L (3.5-5.1)
[2021-05-26] MEDS: INSULIN LISPRO 100 UNIT/ML SUBCUT SCH ×4 (08:49→22:29)
[2021-05-26] MEDS: DILTIAZEM 30 MG TABLET PO SCH ×3 (08:50→21:44)
[2021-05-26] MEDS: SODIUM BICARBONATE 650 MG TABLET PO SCH ×2 (08:50→21:44)
[2021-05-26] MEDS: buPROPion SR 100 MG TABLET PO SCH (08:50)
[2021-05-26] MEDS: CHOLECALCIFEROL 1,000 UNIT TABLET PO SCH (08:50)
[2021-05-26] MEDS: ASPIRIN EC 81 MG TABLET PO SCH (08:51)
[2021-05-26] MEDS: BENZTROPINE 1 MG TABLET PO SCH ×2 (08:51→21:44)
[2021-05-26] MEDS: CLOPIDOGREL 75 MG TABLET PO SCH (08:51)
[2021-05-26] MEDS: DOCUSATE SODIUM 100 MG/10 ML UDCUP PO SCH ×2 (08:51→21:43)
[2021-05-26] MEDS: ESCITALOPRAM 10 MG TABLET PO SCH (08:51)
[2021-05-26] MEDS: NYSTATIN/TRIAMCINOLONE CREAM 15 GM TUBE TOP SCH ×2 (08:56→21:45)
[2021-05-26] MEDS: POLYETHYLENE GLYCOL POWDER 17 GM PACK PO SCH (08:57)
[2021-05-26] MEDS: PROCHLORPERAZINE 10 MG/2 ML VIAL IM PRN ×2 (09:01→16:22)
[2021-05-26] MEDS: ZINC OXIDE PASTE 113 GM TUBE TOP SCH ×2 (09:07→21:45)
[2021-05-26] MEDS: NICOTINE 21 MG/24 HR PATCH TRANSDERM SCH (09:23)
[2021-05-26] MEDS: PANTOPRAZOLE 40 MG VIAL IV SCH ×2 (09:24→21:43)
[2021-05-26] MEDS: LINACLOTIDE 145 MCG CAPSULE PO SCH (12:56)
[2021-05-26] MEDS: cefTRIAXone 1,000 MG in SODIUM CHLORIDE 0.9% 100 ML IV SCH (13:30)
[2021-05-26] MEDS: DEXTROSE 10% 250 ML BAG IV PRN (19:20)
[2021-05-26] MEDS: LACTATED RINGERS 1,000 ML IV SCH (21:43)
[2021-05-26] MEDS: ENOXAPARIN 40 MG/0.4 ML SYRINGE SUBCUT SCH (21:43)
[2021-05-26] MEDS: traZODone 50 MG TABLET PO PRN (21:44)
[2021-05-26] MEDS: SIMVASTATIN 20 MG TABLET PO SCH (21:44)
[2021-05-27] MEDS: LACTATED RINGERS 1,000 ML IV SCH ×2 (02:38→21:03)
[2021-05-27] MEDS: diphenhydrAMINE 50 MG/1 ML VIAL IV PRN (02:39)
[2021-05-27] MEDS: HYDROmorphone 1 MG/1 ML SYRINGE IV PRN ×4 (02:40→21:01)
[2021-05-27 05:28] LABS: Basophils % 0.3 % (0.0-0.8); Eosinophils # 0.2 10*3/uL (0.0-0.87); Eosinophils % 3.3 % (0.00-10.9); Hematocrit 25.8 VOL% (35.7-47.0); Hemoglobin 7.4 GM/DL (12.0-16.0); Immature Granulocytes % 0.9 %; Immature Granulocytes Absolute 0.05 #; Lymphocytes % 17.3 % (21.3-54.2); Mean Corpuscular HGB Conc 28.7 GM/DL (32-36); Monocytes # 0.5 10*3/uL (0.11-0.8); Neutrophils % 69.2 % (38.7-73.9); Platelet Count 306 T/CUMM (130-400); Red Blood Count 3.35 MC/CUMM (3.8-5.5); Red Cell Distribution Width 28.2 % (9.3-17.3); White Blood Count 5.8 T/CUMM (4-12)
[2021-05-27 05:41] LABS: Calcium 8.4 MG/DL (8.5-10.1); Potassium 4.1 MMOL/L (3.5-5.1)
[2021-05-27] MEDS: PROCHLORPERAZINE 10 MG/2 ML VIAL IM PRN ×3 (08:02→21:02)
[2021-05-27] MEDS: INSULIN LISPRO 100 UNIT/ML SUBCUT SCH ×4 (08:57→21:04)
[2021-05-27] MEDS: LINACLOTIDE 145 MCG CAPSULE PO SCH (11:52)
[2021-05-27] MEDS: POLYETHYLENE GLYCOL POWDER 17 GM PACK PO SCH (11:53)
[2021-05-27] MEDS: DOCUSATE SODIUM 100 MG/10 ML UDCUP PO SCH ×2 (11:53→21:01)
[2021-05-27] MEDS: ZINC OXIDE PASTE 113 GM TUBE TOP SCH ×2 (11:53→21:04)
[2021-05-27] MEDS: NYSTATIN/TRIAMCINOLONE CREAM 15 GM TUBE TOP SCH ×2 (11:53→21:04)
[2021-05-27] MEDS: DEXTROSE 10% 250 ML BAG IV PRN (12:13)
[2021-05-27] MEDS: NICOTINE 21 MG/24 HR PATCH TRANSDERM SCH (12:17)
[2021-05-27] MEDS: SCOPOLAMINE 1.5 MG PATCH TRANSDERM SCH (12:17)
[2021-05-27] MEDS: PANTOPRAZOLE 40 MG VIAL IV SCH ×2 (13:13→21:01)
[2021-05-27] MEDS: PROMETHAZINE INJ 25 MG in SODIUM CHLORIDE 0.9% 50 ML IV PRN (13:13)
[2021-05-27 14:00] LABS: Hematocrit 28.6 VOL% (35.7-47.0); Hemoglobin 8.2 GM/DL (12.0-16.0)
[2021-05-27] MEDS: DILTIAZEM 30 MG TABLET PO SCH ×3 (15:22→21:03)
[2021-05-27] MEDS: ASPIRIN EC 81 MG TABLET PO SCH (15:22)
[2021-05-27] MEDS: ESCITALOPRAM 10 MG TABLET PO SCH (15:23)
[2021-05-27] MEDS: CLOPIDOGREL 75 MG TABLET PO SCH (15:23)
[2021-05-27] MEDS: buPROPion SR 100 MG TABLET PO SCH (15:23)
[2021-05-27] MEDS: CHOLECALCIFEROL 1,000 UNIT TABLET PO SCH (15:23)
[2021-05-27] MEDS: BENZTROPINE 1 MG TABLET PO SCH ×2 (15:23→21:02)
[2021-05-27] MEDS: SODIUM BICARBONATE 650 MG TABLET PO SCH ×2 (15:23→21:03)
[2021-05-27] MEDS: cefTRIAXone 1,000 MG in SODIUM CHLORIDE 0.9% 100 ML IV SCH (16:08)
[2021-05-27] MEDS ORDERED: DEXTROSE 10% 250 ML BAG IV PRN (16:44)
[2021-05-27] MEDS: traZODone 50 MG TABLET PO PRN (21:02)
[2021-05-27] MEDS: SIMVASTATIN 20 MG TABLET PO SCH (21:03)
[2021-05-28] MEDS: HYDROmorphone 1 MG/1 ML SYRINGE IV PRN (03:37)
[2021-05-28 07:05] LABS: Calcium 8.4 MG/DL (8.5-10.1); Osmolality,Calculated 294.8 MOS/KG (273-304)
[2021-05-28 07:14] LABS: Basophils % 0.3 % (0.0-0.8); Eosinophils # 0.2 10*3/uL (0.0-0.87); Eosinophils % 2.7 % (0.00-10.9); Hematocrit 28.6 VOL% (35.7-47.0); Hemoglobin 8.2 GM/DL (12.0-16.0); Immature Granulocytes % 0.8 %; Immature Granulocytes Absolute 0.05 #; Lymphocytes % 15.1 % (21.3-54.2); Mean Corpuscular HGB Conc 28.7 GM/DL (32-36); Mean Corpuscular Volume 77.5 FL (87-102); Monocytes # 0.6 10*3/uL (0.11-0.8); Monocytes % 8.8 % (1.7-12.7); Neutrophils % 72.3 % (38.7-73.9); Platelet Count 312 T/CUMM (130-400); Red Blood Count 3.69 MC/CUMM (3.8-5.5); Red Cell Distribution Width 28.7 % (9.3-17.3); White Blood Count 6.6 T/CUMM (4-12)
[2021-05-28 07:18] LABS: Microcytosis 1+
[2021-05-28 07:19] LABS: Hypochromia 1+; Ovalocytes Few; Platelet Estimate Increased; Polychromasia Few
[2021-05-28 07:21] LABS: Anisocytosis 1+
[2021-05-28] MEDS: METOCLOPRAMIDE 10 MG/2 ML VIAL IV SCH ×2 (08:27→14:20)
[2021-05-28] MEDS: buPROPion SR 100 MG TABLET PO SCH (08:27)
[2021-05-28] MEDS: ASPIRIN EC 81 MG TABLET PO SCH (08:27)
[2021-05-28] MEDS: CHOLECALCIFEROL 1,000 UNIT TABLET PO SCH (08:28)
[2021-05-28] MEDS: CLOPIDOGREL 75 MG TABLET PO SCH (08:28)
[2021-05-28] MEDS: ESCITALOPRAM 10 MG TABLET PO SCH (08:28)
[2021-05-28] MEDS: ZINC OXIDE PASTE 113 GM TUBE TOP SCH (08:30)
[2021-05-28] MEDS: NYSTATIN/TRIAMCINOLONE CREAM 15 GM TUBE TOP SCH (08:30)
[2021-05-28] MEDS: DILTIAZEM 30 MG TABLET PO SCH ×2 (10:30→14:43)
[2021-05-28] MEDS: DOCUSATE SODIUM 100 MG/10 ML UDCUP PO SCH (10:30)
[2021-05-28] MEDS: NICOTINE 21 MG/24 HR PATCH TRANSDERM SCH (10:30)
[2021-05-28] MEDS: PANTOPRAZOLE 40 MG VIAL IV SCH (10:30)
[2021-05-28] MEDS: SODIUM BICARBONATE 650 MG TABLET PO SCH (10:30)
[2021-05-28] MEDS: BENZTROPINE 1 MG TABLET PO SCH (10:35)
[2021-05-28] MEDS: INSULIN LISPRO 100 UNIT/ML SUBCUT SCH ×3 (11:02→18:06)
[2021-05-28] MEDS: POLYETHYLENE GLYCOL POWDER 17 GM PACK PO SCH (11:02)
[2021-05-28] MEDS ORDERED: DEXTROSE 50% 25 GM/50 ML VIAL IV PRN (11:37)
[2021-05-28] MEDS ORDERED: HYDROcod/ACETAMIN 7.5-325 MG/15 ML UDCUP PER TUBE PRN (13:13)
[2021-05-28] MEDS: LINACLOTIDE 145 MCG CAPSULE PO SCH (13:29)
[2021-05-28] MEDS: cefTRIAXone 1,000 MG in SODIUM CHLORIDE 0.9% 100 ML IV SCH (14:44)
[2021-05-28 16:56] VITALS: BP 110/66
== END 2021-05-28 17:30 | DRG 616 ==
LOC: SUATTDRO 15:48 → N.3E 15:48
PROVIDERS: ADMIT Internal Medicine; ATTEND Internal Medicine

== ENCOUNTER 2021-07-06 12:24 | Inpatient (IN) ==
[2021-07-06] MEDS ORDERED: diphenhydrAMINE 50 MG/1 ML VIAL IV STA (13:38)
[2021-07-06] MEDS ORDERED: PROMETHAZINE 25 MG/1 ML VIAL IM STA (13:38)
[2021-07-06] MEDS ORDERED: HYDROmorphone 1 MG/1 ML SYRINGE IV STA (13:38)
[2021-07-06] MEDS ORDERED: SODIUM CHLORIDE 0.9% 1,000 ML IV STA (13:39)
[2021-07-06 14:47] LABS: Albumin 1.9 G/DL (3.4-5.0); Bilirubin,Total 0.7 MG/DL (0.20-1.00); Calcium 7.7 MG/DL (8.5-10.1); Osmolality,Calculated 279.3 MOS/KG (273-304); Total Protein 5.6 G/DL (6.4-8.2)
[2021-07-06 15:30] LABS: Basophils % 0.3 % (0.0-0.8); Eosinophils # 0.1 10*3/uL (0.0-0.87); Eosinophils % 1.1 % (0.00-10.9); Hematocrit 28.2 VOL% (35.7-47.0); Hemoglobin 8.5 GM/DL (12.0-16.0); Immature Granulocytes % 0.3 %; Immature Granulocytes Absolute 0.02 #; Lymphocytes # 1.4 10*3/uL (1.4-4.0); Lymphocytes % 22.1 % (21.3-54.2); Mean Corpuscular HGB Conc 30.1 GM/DL (32-36); Mean Corpuscular Volume 82.9 FL (87-102); Mean Platelet Volume 11.9 FL (9.6-12.0); Monocytes # 0.5 10*3/uL (0.11-0.8); Monocytes % 8.3 % (1.7-12.7); Neutrophils % 67.9 % (38.7-73.9); Platelet Count 187 T/CUMM (130-400); Red Cell Distribution Width 21.8 % (9.3-17.3); White Blood Count 6.5 T/CUMM (4-12)
[2021-07-06] MEDS ORDERED: MAGNESIUM SULF RIDER 4 GM/100 ML PREMIX IV ONE (17:16)
[2021-07-06] MEDS ORDERED: MAGNESIUM SULF RIDER 2 GM/50 ML PREMIX IV ONE (17:16)
[2021-07-06] MEDS ORDERED: ACETAMINOPHEN 325 MG TABLET PO PRN (17:25)
[2021-07-06] MEDS ORDERED: GLUCAGON 1 MG VIAL IM PRN (17:25)
[2021-07-06] MEDS ORDERED: DEXTROSE 10% 250 ML BAG IV PRN (17:32)
[2021-07-06] MEDS: SODIUM CHLORIDE 0.9% 1,000 ML IV SCH (18:01)
[2021-07-06] MEDS: ONDANSETRON 4 MG/2 ML VIAL IV PRN ×2 (18:01→21:42)
[2021-07-06] MEDS ORDERED: CYCLOBENZAPRINE 10 MG TABLET PO PRN (18:28)
[2021-07-06] MEDS ORDERED: PROMETHAZINE INJ 12.5 MG in SODIUM CHLORIDE 0.9% 50 ML IV PRN (18:33)
[2021-07-06] MEDS ORDERED: NICOTINE 21 MG/24 HR PATCH TRANSDERM PRN (18:37)
[2021-07-06] MEDS: HYDROmorphone 1 MG/1 ML SYRINGE IV PRN (21:43)
[2021-07-06] MEDS: DILTIAZEM 30 MG TABLET PO SCH (21:51)
[2021-07-06] MEDS: BENZTROPINE 1 MG TABLET PO SCH (21:52)
[2021-07-06] MEDS: traZODone 50 MG TABLET PO PRN (21:52)
[2021-07-06] MEDS: INSULIN LISPRO 100 UNIT/ML SUBCUT SCH (22:09)
[2021-07-06] MEDS: PRAVASTATIN 40 MG TABLET PO SCH (22:10)
[2021-07-07] MEDS: ONDANSETRON 4 MG/2 ML VIAL IV PRN ×2 (04:12→22:05)
[2021-07-07] MEDS: HYDROmorphone 1 MG/1 ML SYRINGE IV PRN ×5 (04:13→22:08)
[2021-07-07] MEDS: SODIUM CHLORIDE 0.9% 1,000 ML IV SCH ×3 (04:15→23:47)
[2021-07-07 05:25] LABS: Basophils % 0.7 % (0.0-0.8); Eosinophils # 0.1 10*3/uL (0.0-0.87); Eosinophils % 2.3 % (0.00-10.9); Hematocrit 25.4 VOL% (35.7-47.0); Hemoglobin 7.7 GM/DL (12.0-16.0); Immature Granulocytes % 0.2 %; Immature Granulocytes Absolute 0.01 #; Lymphocytes # 1.1 10*3/uL (1.4-4.0); Lymphocytes % 25.1 % (21.3-54.2); Mean Corpuscular HGB Conc 30.3 GM/DL (32-36); Mean Corpuscular Volume 83.3 FL (87-102); Mean Platelet Volume 11.6 FL (9.6-12.0); Monocytes # 0.4 10*3/uL (0.11-0.8); Monocytes % 8.4 % (1.7-12.7); Neutrophils % 63.3 % (38.7-73.9); Platelet Count 193 T/CUMM (130-400); Red Blood Count 3.05 MC/CUMM (3.8-5.5); Red Cell Distribution Width 21.5 % (9.3-17.3); White Blood Count 4.3 T/CUMM (4-12)
[2021-07-07 05:31] LABS: INR 1.3; PT Patient Result 13.9 SECS (10.5-12.0)
[2021-07-07 05:36] LABS: Calcium 7.7 MG/DL (8.5-10.1); Potassium 3.2 MMOL/L (3.5-5.1)
[2021-07-07] MEDS ORDERED: MAGNESIUM SULF RIDER 2 GM/50 ML PREMIX IV PRN (07:00)
[2021-07-07] MEDS ORDERED: MAGNESIUM SULF RIDER 4 GM/100 ML PREMIX IV PRN (07:00)
[2021-07-07] MEDS: INSULIN LISPRO 100 UNIT/ML SUBCUT SCH ×4 (07:42→22:02)
[2021-07-07] MEDS: DILTIAZEM 30 MG TABLET PO SCH ×3 (08:30→22:01)
[2021-07-07] MEDS: PANTOPRAZOLE 40 MG VIAL IV SCH (08:30)
[2021-07-07] MEDS: BENZTROPINE 1 MG TABLET PO SCH ×2 (08:30→22:01)
[2021-07-07] MEDS: ESCITALOPRAM 10 MG TABLET PO SCH (08:30)
[2021-07-07] MEDS: buPROPion SR 100 MG TABLET PO SCH (08:54)
[2021-07-07] MEDS ORDERED: NICOTINE 21 MG/24 HR PATCH TRANSDERM SCH (09:00)
[2021-07-07] MEDS: POTASSIUM CHLORIDE RIDER 10 MEQ/100 ML PREMIX IV PRN ×4 (11:16→15:26)
[2021-07-07] MEDS ORDERED: ZINC OXIDE PASTE 113 GM TUBE TOP PRN (13:14)
[2021-07-07] MEDS: traZODone 50 MG TABLET PO PRN (22:01)
[2021-07-07] MEDS: PRAVASTATIN 40 MG TABLET PO SCH (22:09)
[2021-07-08] MEDS: HYDROmorphone 1 MG/1 ML SYRINGE IV PRN ×3 (03:14→14:30)
[2021-07-08] MEDS: ONDANSETRON 4 MG/2 ML VIAL IV PRN ×3 (03:15→14:30)
[2021-07-08 07:07] LABS: Basophils % 0.7 % (0.0-0.8); Eosinophils # 0.1 10*3/uL (0.0-0.87); Eosinophils % 1.9 % (0.00-10.9); Hematocrit 26.5 VOL% (35.7-47.0); Hemoglobin 8.2 GM/DL (12.0-16.0); Immature Granulocytes % 0.2 %; Immature Granulocytes Absolute 0.01 #; Lymphocytes # 1.3 10*3/uL (1.4-4.0); Lymphocytes % 29.6 % (21.3-54.2); Mean Corpuscular HGB Conc 30.9 GM/DL (32-36); Mean Corpuscular Volume 83.6 FL (87-102); Mean Platelet Volume 11.8 FL (9.6-12.0); Monocytes # 0.3 10*3/uL (0.11-0.8); Monocytes % 7.3 % (1.7-12.7); Neutrophils % 60.3 % (38.7-73.9); Platelet Count 213 T/CUMM (130-400); Red Blood Count 3.17 MC/CUMM (3.8-5.5); Red Cell Distribution Width 21.3 % (9.3-17.3); White Blood Count 4.2 T/CUMM (4-12)
[2021-07-08] MEDS: INSULIN LISPRO 100 UNIT/ML SUBCUT SCH ×2 (07:39→11:39)
[2021-07-08 07:53] LABS: Calcium 7.6 MG/DL (8.5-10.1); Osmolality,Calculated 277.3 MOS/KG (273-304); Potassium 4.1 MMOL/L (3.5-5.1)
[2021-07-08] MEDS: buPROPion SR 100 MG TABLET PO SCH (09:33)
[2021-07-08] MEDS: ESCITALOPRAM 10 MG TABLET PO SCH (09:33)
[2021-07-08] MEDS: DILTIAZEM 30 MG TABLET PO SCH ×2 (09:33→15:16)
[2021-07-08] MEDS: BENZTROPINE 1 MG TABLET PO SCH (09:33)
[2021-07-08] MEDS: PANTOPRAZOLE 40 MG VIAL IV SCH (09:38)
[2021-07-08] MEDS: SODIUM CHLORIDE 0.9% 1,000 ML IV SCH (09:38)
[2021-07-08 13:06] VITALS: BP 107/72
== END 2021-07-08 15:32 | disposition home health service (06) | DRG 394 ==
LOC: N.EDINP 12:24 → N.ED 12:24 → N.3E 17:54
PROVIDERS: ADMIT Internal Medicine; ATTEND Internal Medicine

== ENCOUNTER 2021-08-10 17:39 | Inpatient (IN) ==
[2021-08-10] MEDS ORDERED: SODIUM CHLORIDE 0.9% 1,000 ML IV STA (18:14)
[2021-08-10] MEDS ORDERED: KETOROLAC 30 MG/1 ML VIAL IV STA (18:22)
[2021-08-10] MEDS ORDERED: METHYLNALTREXONE 12 MG/0.6 ML VIAL SUBCUT ONE (18:22)
[2021-08-10 18:29] LABS: Basophils % 0.6 % (0.0-0.8); Eosinophils # 0.1 10*3/uL (0.0-0.87); Eosinophils % 1.1 % (0.00-10.9); Hematocrit 28.1 VOL% (35.7-47.0); Hemoglobin 8.6 GM/DL (12.0-16.0); Immature Granulocytes % 0.3 %; Immature Granulocytes Absolute 0.02 #; Lymphocytes # 1.3 10*3/uL (1.4-4.0); Lymphocytes % 18.9 % (21.3-54.2); Mean Corpuscular HGB Conc 30.6 GM/DL (32-36); Mean Corpuscular Volume 82.9 FL (87-102); Mean Platelet Volume 11.3 FL (9.6-12.0); Monocytes # 0.4 10*3/uL (0.11-0.8); Monocytes % 6.6 % (1.7-12.7); Neutrophils % 72.5 % (38.7-73.9); Platelet Count 358 T/CUMM (130-400); Red Blood Count 3.39 MC/CUMM (3.8-5.5); White Blood Count 6.7 T/CUMM (4-12)
[2021-08-10 18:46] LABS: Alanine Aminotransferase < 9 U/L (13-56); Albumin 2.3 G/DL (3.4-5.0); Alkaline Phosphatase 95 U/L (45-117); Aspartate Amino Transferase 6 U/L (0-37); Bilirubin,Total < 0.39 MG/DL (0.20-1.00); Blood Urea Nitrogen 19 MG/DL (7-18); Calcium 8.2 MG/DL (8.5-10.1); Carbon Dioxide 23 MMOL/L (21-32); Chloride 108 MMOL/L (98-107); Glucose 127 MG/DL (74-106); Osmolality,Calculated 280.5 MOS/KG (273-304); Potassium 4.1 MMOL/L (3.5-5.1); Sodium 139 MMOL/L (136-145)
[2021-08-10 19:26] LABS: Bilirubin,Urine Negative (Negative); Blood, Urine Trace mg/dL (Negative); Glucose,Urine (UA) Negative (Negative); Ketones,Urine Negative (Negative); Nitrite,Urine Negative (Negative); Protein,Urine Negative (Negative); Urine Appearance Clear (Clear); Urine Color Yellow (Yellow); Urine Specific Gravity 1.015 (1.001-1.035); Urine Urobilinogen < 2.0 eU/dL (<2.0); Urine pH 5.5 (4.5-8.0)
[2021-08-10 19:31] LABS: Bacteria,Urine Occasional /HPF (Few); RBC,Urine 1 /HPF (0-4); Squamous Epithelial Cell,Urine Occasional /HPF (0-10)
[2021-08-10] MEDS ORDERED: FUROSEMIDE 40 MG/4 ML VIAL IV ONE (21:12)
[2021-08-10] MEDS ORDERED: SODIUM PHOSPHATE ENEMA 133 ML BOTTLE RECTAL ONE (21:13)
[2021-08-10] MEDS ORDERED: PROMETHAZINE INJ 12.5 MG in SODIUM CHLORIDE 0.9% 50 ML IV PRN (21:14)
[2021-08-10] MEDS ORDERED: GLUCAGON 1 MG VIAL IM PRN (21:17)
[2021-08-10] MEDS ORDERED: DEXTROSE 10% 250 ML BAG IV PRN (21:17)
[2021-08-10] MEDS ORDERED: KETOROLAC 15 MG/1 ML VIAL IV PRN (22:34)
[2021-08-10] MEDS: METOPROLOL TARTRATE 5 MG/5 ML VIAL IV SCH (23:42)
[2021-08-10] MEDS: HYDROmorphone 1 MG/1 ML SYRINGE IV PRN (23:42)
[2021-08-10] MEDS: diphenhydrAMINE 50 MG/1 ML VIAL IV PRN (23:42)
[2021-08-11] MEDS: METOPROLOL TARTRATE 5 MG/5 ML VIAL IV SCH ×3 (05:44→18:31)
[2021-08-11 07:01] LABS: Alanine Aminotransferase < 9 U/L (13-56); Albumin 2.2 G/DL (3.4-5.0); Alkaline Phosphatase 87 U/L (45-117); Aspartate Amino Transferase 7 U/L (0-37); Blood Urea Nitrogen 20 MG/DL (7-18); Calcium 8.2 MG/DL (8.5-10.1); Carbon Dioxide 24 MMOL/L (21-32); Chloride 108 MMOL/L (98-107); Glucose 102 MG/DL (74-106); Osmolality,Calculated 279.5 MOS/KG (273-304); Potassium 3.9 MMOL/L (3.5-5.1); Sodium 139 MMOL/L (136-145)
[2021-08-11] MEDS: HYDROmorphone 1 MG/1 ML SYRINGE IV PRN ×4 (07:44→22:20)
[2021-08-11] MEDS: diphenhydrAMINE 50 MG/1 ML VIAL IV PRN ×3 (07:45→22:23)
[2021-08-11 09:07] LABS: Hematocrit 30.3 VOL% (35.7-47.0); Hemoglobin 8.9 GM/DL (12.0-16.0)
[2021-08-11] MEDS: PANTOPRAZOLE 40 MG VIAL IV SCH (09:51)
[2021-08-11] MEDS: ENOXAPARIN 40 MG/0.4 ML SYRINGE SUBCUT SCH (09:51)
[2021-08-11] MEDS: POLYETHYLENE GLYCOL POWDER 17 GM PACK PO SCH ×2 (09:52→23:27)
[2021-08-11] MEDS ORDERED: SODIUM PHOSPHATE ENEMA 133 ML BOTTLE RECTAL PRN (10:20)
[2021-08-11] MEDS: INSULIN LISPRO 100 UNIT/ML SUBCUT SCH ×4 (11:42→21:38)
[2021-08-11] MEDS ORDERED: ZINC OXIDE PASTE 113 GM TUBE TOP PRN (17:00)
[2021-08-11] MEDS: FUROSEMIDE 40 MG/4 ML VIAL IV SCH (22:18)
[2021-08-12] MEDS: PROMETHAZINE INJ 12.5 MG in SODIUM CHLORIDE 0.9% 50 ML IV PRN ×2 (02:10→12:55)
[2021-08-12 04:46] LABS: Basophils % 0.7 % (0.0-0.8); Eosinophils # 0.1 10*3/uL (0.0-0.87); Hematocrit 29.8 VOL% (35.7-47.0); Hemoglobin 8.6 GM/DL (12.0-16.0); Immature Granulocytes % 0.4 %; Immature Granulocytes Absolute 0.02 #; Lymphocytes # 1.1 10*3/uL (1.4-4.0); Lymphocytes % 19.3 % (21.3-54.2); Mean Corpuscular HGB Conc 28.9 GM/DL (32-36); Mean Corpuscular Volume 85.9 FL (87-102); Mean Platelet Volume 11.4 FL (9.6-12.0); Monocytes # 0.5 10*3/uL (0.11-0.8); Monocytes % 8.3 % (1.7-12.7); Neutrophils % 69.3 % (38.7-73.9); Platelet Count 327 T/CUMM (130-400); Red Blood Count 3.47 MC/CUMM (3.8-5.5); Red Cell Distribution Width 14.1 % (9.3-17.3); White Blood Count 5.4 T/CUMM (4-12)
[2021-08-12 05:05] LABS: % Iron Saturation 5.6 % (18-50)
[2021-08-12 05:09] LABS: Calcium 8.8 MG/DL (8.5-10.1); Osmolality,Calculated 278.7 MOS/KG (273-304); Potassium 4.5 MMOL/L (3.5-5.1)
[2021-08-12] MEDS: HYDROmorphone 1 MG/1 ML SYRINGE IV PRN ×3 (07:28→20:45)
[2021-08-12] MEDS: INSULIN LISPRO 100 UNIT/ML SUBCUT SCH ×4 (08:20→20:44)
[2021-08-12] MEDS: POLYETHYLENE GLYCOL POWDER 17 GM PACK PO SCH ×2 (08:32→20:56)
[2021-08-12] MEDS: FERROUS SULFATE 325 MG TABLET PO SCH ×2 (08:32→20:44)
[2021-08-12] MEDS: ENOXAPARIN 40 MG/0.4 ML SYRINGE SUBCUT SCH (08:32)
[2021-08-12] MEDS: DOCUSATE SODIUM 100 MG CAPSULE PO SCH ×2 (08:32→20:44)
[2021-08-12] MEDS: PANTOPRAZOLE 40 MG VIAL IV SCH (08:36)
[2021-08-12] MEDS: FUROSEMIDE 40 MG/4 ML VIAL IV SCH ×2 (08:49→20:44)
[2021-08-12] MEDS: DAPAGLIFLOZIN 10 MG TABLET PO SCH (11:28)
[2021-08-12] MEDS: METOPROLOL SUCCINATE XL 25 MG TABLET PO SCH (11:28)
[2021-08-12] MEDS: SACUBITRIL/VALSARTAN 49-51 MG TABLET PO SCH ×2 (11:29→20:47)
[2021-08-12] MEDS ORDERED: HEPARIN LOCK FLUSH 500 UNIT/5 ML SYRINGE IV PRN (12:43)
[2021-08-12] MEDS ORDERED: DEXTROSE 50% 25 GM/50 ML VIAL IV PRN (13:13)
[2021-08-12] MEDS: LACTULOSE 20 GM/30 ML UDCUP PO SCH ×2 (17:15→20:44)
[2021-08-12] MEDS: diphenhydrAMINE 50 MG/1 ML VIAL IV PRN ×2 (17:21→23:14)
[2021-08-12] MEDS: HEPARIN LOCK FLUSH 500 UNIT/5 ML SYRINGE IV SCH (20:49)
[2021-08-13] MEDS: HYDROmorphone 1 MG/1 ML SYRINGE IV PRN ×4 (01:08→15:09)
[2021-08-13 05:18] LABS: Basophils % 0.6 % (0.0-0.8); Eosinophils # 0.1 10*3/uL (0.0-0.87); Eosinophils % 2.3 % (0.00-10.9); Hematocrit 31.7 VOL% (35.7-47.0); Hemoglobin 9.4 GM/DL (12.0-16.0); Immature Granulocytes % 0.2 %; Immature Granulocytes Absolute 0.01 #; Lymphocytes # 1.3 10*3/uL (1.4-4.0); Lymphocytes % 28.4 % (21.3-54.2); Mean Corpuscular HGB Conc 29.7 GM/DL (32-36); Mean Corpuscular Volume 82.8 FL (87-102); Mean Platelet Volume 10.9 FL (9.6-12.0); Monocytes # 0.4 10*3/uL (0.11-0.8); Monocytes % 8.1 % (1.7-12.7); Neutrophils % 60.4 % (38.7-73.9); Platelet Count 343 T/CUMM (130-400); Red Blood Count 3.83 MC/CUMM (3.8-5.5); Red Cell Distribution Width 14.1 % (9.3-17.3); White Blood Count 4.7 T/CUMM (4-12)
[2021-08-13] MEDS: diphenhydrAMINE 50 MG/1 ML VIAL IV PRN ×2 (05:35→10:59)
[2021-08-13 05:36] LABS: Calcium 8.8 MG/DL (8.5-10.1); Osmolality,Calculated 276.8 MOS/KG (273-304); Potassium 4.3 MMOL/L (3.5-5.1)
[2021-08-13] MEDS: INSULIN LISPRO 100 UNIT/ML SUBCUT SCH ×4 (07:49→21:14)
[2021-08-13] MEDS: FUROSEMIDE 40 MG/4 ML VIAL IV SCH ×2 (09:08→21:13)
[2021-08-13] MEDS: LACTULOSE 20 GM/30 ML UDCUP PO SCH ×3 (09:08→21:17)
[2021-08-13] MEDS: ENOXAPARIN 40 MG/0.4 ML SYRINGE SUBCUT SCH (09:08)
[2021-08-13] MEDS: SACUBITRIL/VALSARTAN 49-51 MG TABLET PO SCH ×2 (09:09→21:13)
[2021-08-13] MEDS: DOCUSATE SODIUM 100 MG CAPSULE PO SCH ×2 (09:09→21:13)
[2021-08-13] MEDS: HEPARIN LOCK FLUSH 500 UNIT/5 ML SYRINGE IV SCH ×2 (09:09→21:15)
[2021-08-13] MEDS: METOPROLOL SUCCINATE XL 25 MG TABLET PO SCH (09:10)
[2021-08-13] MEDS: POLYETHYLENE GLYCOL POWDER 17 GM PACK PO SCH ×2 (09:10→21:17)
[2021-08-13] MEDS: DAPAGLIFLOZIN 10 MG TABLET PO SCH (09:10)
[2021-08-13] MEDS: PANTOPRAZOLE 40 MG TABLET PO SCH (09:10)
[2021-08-13] MEDS: FERROUS SULFATE 325 MG TABLET PO SCH ×2 (09:12→21:17)
[2021-08-13] MEDS: PROMETHAZINE INJ 12.5 MG in SODIUM CHLORIDE 0.9% 50 ML IV PRN ×2 (16:08→23:25)
[2021-08-14] MEDS: HYDROmorphone 1 MG/1 ML SYRINGE IV PRN ×5 (00:12→22:40)
[2021-08-14 04:57] LABS: Basophils % 0.8 % (0.0-0.8); Eosinophils # 0.1 10*3/uL (0.0-0.87); Eosinophils % 1.6 % (0.00-10.9); Hematocrit 29.4 VOL% (35.7-47.0); Hemoglobin 8.9 GM/DL (12.0-16.0); Immature Granulocytes % 0.2 %; Immature Granulocytes Absolute 0.01 #; Lymphocytes # 1.2 10*3/uL (1.4-4.0); Lymphocytes % 24.7 % (21.3-54.2); Mean Corpuscular HGB Conc 30.3 GM/DL (32-36); Mean Corpuscular Volume 82.8 FL (87-102); Mean Platelet Volume 11.1 FL (9.6-12.0); Monocytes # 0.4 10*3/uL (0.11-0.8); Monocytes % 8.2 % (1.7-12.7); Neutrophils % 64.5 % (38.7-73.9); Platelet Count 328 T/CUMM (130-400); Red Blood Count 3.55 MC/CUMM (3.8-5.5); Red Cell Distribution Width 14.1 % (9.3-17.3)
[2021-08-14 05:12] LABS: Calcium 8.4 MG/DL (8.5-10.1); Osmolality,Calculated 275.8 MOS/KG (273-304); Potassium 3.9 MMOL/L (3.5-5.1)
[2021-08-14] MEDS: PANTOPRAZOLE 40 MG TABLET PO SCH (05:53)
[2021-08-14] MEDS: PROMETHAZINE INJ 12.5 MG in SODIUM CHLORIDE 0.9% 50 ML IV PRN ×3 (05:58→18:29)
[2021-08-14] MEDS: INSULIN LISPRO 100 UNIT/ML SUBCUT SCH ×4 (07:10→21:05)
[2021-08-14] MEDS: LACTULOSE 20 GM/30 ML UDCUP PO SCH ×3 (08:53→22:49)
[2021-08-14] MEDS: DAPAGLIFLOZIN 10 MG TABLET PO SCH (08:53)
[2021-08-14] MEDS: SACUBITRIL/VALSARTAN 49-51 MG TABLET PO SCH ×2 (08:53→22:48)
[2021-08-14] MEDS: DOCUSATE SODIUM 100 MG CAPSULE PO SCH ×2 (08:54→22:47)
[2021-08-14] MEDS: metOLazone 5 MG TABLET PO SCH (08:54)
[2021-08-14] MEDS: SULFAMETHOX/TRIMETHOPRIM 800-160 MG TABLET PO SCH ×2 (08:54→22:48)
[2021-08-14] MEDS: POLYETHYLENE GLYCOL POWDER 17 GM PACK PO SCH ×2 (08:54→22:49)
[2021-08-14] MEDS: METOPROLOL SUCCINATE XL 25 MG TABLET PO SCH (08:54)
[2021-08-14] MEDS: FERROUS SULFATE 325 MG TABLET PO SCH ×2 (08:55→22:49)
[2021-08-14] MEDS: ENOXAPARIN 40 MG/0.4 ML SYRINGE SUBCUT SCH (08:56)
[2021-08-14] MEDS: FUROSEMIDE 40 MG/4 ML VIAL IV SCH ×2 (08:58→22:43)
[2021-08-14] MEDS: HEPARIN LOCK FLUSH 500 UNIT/5 ML SYRINGE IV SCH ×2 (09:00→22:46)
[2021-08-14] MEDS: diphenhydrAMINE 50 MG/1 ML VIAL IV PRN (22:57)
[2021-08-15] MEDS: HYDROmorphone 1 MG/1 ML SYRINGE IV PRN ×5 (04:15→21:22)
[2021-08-15] MEDS: PROMETHAZINE INJ 12.5 MG in SODIUM CHLORIDE 0.9% 50 ML IV PRN ×2 (04:20→13:56)
[2021-08-15 05:39] LABS: Hematocrit 31.6 VOL% (35.7-47.0); Hemoglobin 9.5 GM/DL (12.0-16.0)
[2021-08-15 05:54] LABS: Calcium 8.3 MG/DL (8.5-10.1); Osmolality,Calculated 282.4 MOS/KG (273-304); Potassium 3.6 MMOL/L (3.5-5.1)
[2021-08-15] MEDS: PANTOPRAZOLE 40 MG TABLET PO SCH (06:07)
[2021-08-15] MEDS ORDERED: MAGNESIUM SULF RIDER 4 GM/100 ML PREMIX IV PRN (07:45)
[2021-08-15] MEDS ORDERED: MAGNESIUM SULF RIDER 2 GM/50 ML PREMIX IV PRN (07:45)
[2021-08-15] MEDS: INSULIN LISPRO 100 UNIT/ML SUBCUT SCH ×4 (07:56→21:28)
[2021-08-15] MEDS: diphenhydrAMINE 50 MG/1 ML VIAL IV PRN ×2 (08:19→21:20)
[2021-08-15] MEDS: LACTULOSE 20 GM/30 ML UDCUP PO SCH ×3 (09:44→21:15)
[2021-08-15] MEDS: FUROSEMIDE 40 MG/4 ML VIAL IV SCH ×2 (09:46→21:18)
[2021-08-15] MEDS: DOCUSATE SODIUM 100 MG CAPSULE PO SCH ×2 (09:48→21:15)
[2021-08-15] MEDS: SULFAMETHOX/TRIMETHOPRIM 800-160 MG TABLET PO SCH ×2 (09:48→21:15)
[2021-08-15] MEDS: metOLazone 5 MG TABLET PO SCH (09:49)
[2021-08-15] MEDS: DAPAGLIFLOZIN 10 MG TABLET PO SCH (09:49)
[2021-08-15] MEDS: SACUBITRIL/VALSARTAN 49-51 MG TABLET PO SCH ×2 (09:51→21:15)
[2021-08-15] MEDS: HEPARIN LOCK FLUSH 500 UNIT/5 ML SYRINGE IV SCH ×2 (09:52→21:17)
[2021-08-15] MEDS: METOPROLOL SUCCINATE XL 25 MG TABLET PO SCH (09:52)
[2021-08-15] MEDS: POLYETHYLENE GLYCOL POWDER 17 GM PACK PO SCH ×2 (09:53→22:35)
[2021-08-15] MEDS: FERROUS SULFATE 325 MG TABLET PO SCH ×2 (09:53→22:35)
[2021-08-15] MEDS: ENOXAPARIN 40 MG/0.4 ML SYRINGE SUBCUT SCH (09:56)
[2021-08-15] MEDS: SIMVASTATIN 20 MG TABLET PO SCH (21:27)
[2021-08-16] MEDS: HYDROmorphone 1 MG/1 ML SYRINGE IV PRN ×6 (00:10→23:30)
[2021-08-16] MEDS: PROMETHAZINE INJ 12.5 MG in SODIUM CHLORIDE 0.9% 50 ML IV PRN ×4 (00:23→22:42)
[2021-08-16] MEDS: diphenhydrAMINE 50 MG/1 ML VIAL IV PRN ×3 (04:44→17:12)
[2021-08-16 06:03] LABS: Basophils % 0.5 % (0.0-0.8); Eosinophils # 0.2 10*3/uL (0.0-0.87); Eosinophils % 3.1 % (0.00-10.9); Hematocrit 33.1 VOL% (35.7-47.0); Hemoglobin 9.7 GM/DL (12.0-16.0); Immature Granulocytes % 0.2 %; Immature Granulocytes Absolute 0.01 #; Lymphocytes # 1.9 10*3/uL (1.4-4.0); Lymphocytes % 29.1 % (21.3-54.2); Mean Corpuscular HGB Conc 29.3 GM/DL (32-36); Monocytes # 0.7 10*3/uL (0.11-0.8); Monocytes % 10.3 % (1.7-12.7); Neutrophils % 56.8 % (38.7-73.9); Platelet Count 316 T/CUMM (130-400); Red Blood Count 3.94 MC/CUMM (3.8-5.5); Red Cell Distribution Width 14.1 % (9.3-17.3); White Blood Count 6.5 T/CUMM (4-12)
[2021-08-16] MEDS: PANTOPRAZOLE 40 MG TABLET PO SCH (06:13)
[2021-08-16 06:26] LABS: Calcium 9.1 MG/DL (8.5-10.1); Potassium 3.6 MMOL/L (3.5-5.1)
[2021-08-16] MEDS: INSULIN LISPRO 100 UNIT/ML SUBCUT SCH ×4 (07:18→20:37)
[2021-08-16] MEDS: ENOXAPARIN 40 MG/0.4 ML SYRINGE SUBCUT SCH (10:35)
[2021-08-16] MEDS: HEPARIN LOCK FLUSH 500 UNIT/5 ML SYRINGE IV SCH ×2 (10:35→23:22)
[2021-08-16] MEDS ORDERED: SODIUM PHOSPHATE ENEMA 133 ML BOTTLE RECTAL ONE (11:00)
[2021-08-16] MEDS: DOCUSATE SODIUM 100 MG CAPSULE PO SCH ×2 (11:42→21:53)
[2021-08-16] MEDS: SULFAMETHOX/TRIMETHOPRIM 800-160 MG TABLET PO SCH ×2 (11:42→21:49)
[2021-08-16] MEDS: LACTULOSE 20 GM/30 ML UDCUP PO SCH ×3 (11:42→21:49)
[2021-08-16] MEDS: ASPIRIN EC 81 MG TABLET PO SCH (11:42)
[2021-08-16] MEDS: POLYETHYLENE GLYCOL POWDER 17 GM PACK PO SCH ×2 (11:43→22:52)
[2021-08-16] MEDS: FERROUS SULFATE 325 MG TABLET PO SCH ×2 (11:43→21:50)
[2021-08-16] MEDS: SACUBITRIL/VALSARTAN 49-51 MG TABLET PO SCH ×3 (11:43→23:35)
[2021-08-16 11:49] LABS: Bacteria,Urine Occasional /HPF (Few); RBC,Urine 1 /HPF (0-4); Squamous Epithelial Cell,Urine Occasional /HPF (0-10)
[2021-08-16 11:50] LABS: Urine Appearance Clear (Clear); Urine Color Yellow (Yellow)
[2021-08-16 11:51] LABS: Bilirubin,Urine Negative (Negative); Blood, Urine Negative (Negative); Glucose,Urine (UA) 100 mg/dL (Negative); Ketones,Urine Negative (Negative); Nitrite,Urine Negative (Negative); Protein,Urine Negative (Negative); Urine pH 8.5 (4.5-8.0)
[2021-08-16] MEDS: DAPAGLIFLOZIN 10 MG TABLET PO SCH (13:13)
[2021-08-16] MEDS: METOPROLOL SUCCINATE XL 25 MG TABLET PO SCH (13:13)
[2021-08-16] MEDS: metOLazone 5 MG TABLET PO SCH (13:13)
[2021-08-16] MEDS: FUROSEMIDE 40 MG TABLET PO SCH (17:12)
[2021-08-16] MEDS: SIMVASTATIN 20 MG TABLET PO SCH (21:50)
[2021-08-17] MEDS: HYDROmorphone 1 MG/1 ML SYRINGE IV PRN ×2 (03:49→09:12)
[2021-08-17] MEDS: diphenhydrAMINE 50 MG/1 ML VIAL IV PRN (03:52)
[2021-08-17 04:55] LABS: Basophils % 0.5 % (0.0-0.8); Eosinophils # 0.3 10*3/uL (0.0-0.87); Eosinophils % 4.4 % (0.00-10.9); Hematocrit 31.6 VOL% (35.7-47.0); Hemoglobin 9.4 GM/DL (12.0-16.0); Immature Granulocytes % 0.3 %; Immature Granulocytes Absolute 0.02 #; Lymphocytes # 1.9 10*3/uL (1.4-4.0); Lymphocytes % 30.3 % (21.3-54.2); Mean Corpuscular HGB Conc 29.7 GM/DL (32-36); Mean Corpuscular Volume 83.4 FL (87-102); Mean Platelet Volume 11.1 FL (9.6-12.0); Monocytes # 0.6 10*3/uL (0.11-0.8); Neutrophils % 55.5 % (38.7-73.9); Platelet Count 330 T/CUMM (130-400); Red Blood Count 3.79 MC/CUMM (3.8-5.5); Red Cell Distribution Width 14.2 % (9.3-17.3); White Blood Count 6.4 T/CUMM (4-12)
[2021-08-17 05:13] LABS: Calcium 8.9 MG/DL (8.5-10.1); Potassium 3.6 MMOL/L (3.5-5.1)
[2021-08-17] MEDS: PANTOPRAZOLE 40 MG TABLET PO SCH (05:53)
[2021-08-17] MEDS: INSULIN LISPRO 100 UNIT/ML SUBCUT SCH ×2 (07:52→13:25)
[2021-08-17] MEDS: SULFAMETHOX/TRIMETHOPRIM 800-160 MG TABLET PO SCH (09:12)
[2021-08-17] MEDS: SACUBITRIL/VALSARTAN 49-51 MG TABLET PO SCH (09:12)
[2021-08-17] MEDS: FERROUS SULFATE 325 MG TABLET PO SCH (09:13)
[2021-08-17] MEDS: metOLazone 5 MG TABLET PO SCH (09:13)
[2021-08-17] MEDS: METOPROLOL SUCCINATE XL 25 MG TABLET PO SCH (09:13)
[2021-08-17] MEDS: ASPIRIN EC 81 MG TABLET PO SCH (09:13)
[2021-08-17] MEDS: FUROSEMIDE 40 MG TABLET PO SCH (09:13)
[2021-08-17] MEDS: DAPAGLIFLOZIN 10 MG TABLET PO SCH (09:13)
[2021-08-17] MEDS: HEPARIN LOCK FLUSH 500 UNIT/5 ML SYRINGE IV SCH (09:14)
[2021-08-17] MEDS: ENOXAPARIN 40 MG/0.4 ML SYRINGE SUBCUT SCH (09:15)
[2021-08-17] MEDS: LACTULOSE 20 GM/30 ML UDCUP PO SCH (09:15)
[2021-08-17] MEDS: DOCUSATE SODIUM 100 MG CAPSULE PO SCH (09:15)
[2021-08-17] MEDS: POLYETHYLENE GLYCOL POWDER 17 GM PACK PO SCH (09:16)
[2021-08-17 12:10] VITALS: BP 94/62
== END 2021-08-17 14:10 | disposition home or self-care (01) | DRG 291 ==
LOC: N.ED 17:39 → N.5E 21:11 → SUATTDRO 21:11 → N.5E 22:40
PROVIDERS: ADMIT Emergency Medicine; ATTEND Emergency Medicine

== ENCOUNTER 2021-09-15 08:32 | Inpatient (IN) ==
[2021-09-15 09:32] LABS: Basophils % 0.3 % (0.0-0.8); Eosinophils # 0.1 10*3/uL (0.0-0.87); Eosinophils % 1.8 % (0.00-10.9); Hematocrit 29.3 VOL% (35.7-47.0); Hemoglobin 8.5 GM/DL (12.0-16.0); Immature Granulocytes % 0.5 %; Immature Granulocytes Absolute 0.02 #; Lymphocytes # 1.1 10*3/uL (1.4-4.0); Lymphocytes % 29.4 % (21.3-54.2); Mean Corpuscular Volume 84.2 FL (87-102); Mean Platelet Volume 12.1 FL (9.6-12.0); Monocytes # 0.2 10*3/uL (0.11-0.8); Monocytes % 5.5 % (1.7-12.7); Neutrophils % 62.5 % (38.7-73.9); Platelet Count 209 T/CUMM (130-400); Red Blood Count 3.48 MC/CUMM (3.8-5.5); Red Cell Distribution Width 15.5 % (9.3-17.3); White Blood Count 3.8 T/CUMM (4-12)
[2021-09-15 09:54] LABS: Bilirubin,Total 0.4 MG/DL (0.20-1.00); Osmolality,Calculated 285.3 MOS/KG (273-304); Potassium 4.4 MMOL/L (3.5-5.1); Total Protein 7.2 G/DL (6.4-8.2)
[2021-09-15] MEDS ORDERED: HYDROmorphone 1 MG/1 ML SYRINGE IV STA (10:11)
[2021-09-15] MEDS ORDERED: cefTRIAXone 1,000 MG in SODIUM CHLORIDE 0.9% 100 ML IV STA (10:11)
[2021-09-15 10:42] LABS: Urine Appearance Clear (Clear); Urine Color Yellow (Yellow); Urine pH 5.5 (4.5-8.0)
[2021-09-15 10:43] LABS: Bilirubin,Urine Negative (Negative); Blood, Urine Trace mg/dL (Negative); Glucose,Urine (UA) 100 mg/dL (Negative); Ketones,Urine Negative (Negative); Nitrite,Urine Positive (Negative); Protein,Urine Trace mg/dL (Negative); Urine Urobilinogen 0.2 eU/dL (<2.0)
[2021-09-15 10:44] LABS: Amorphous Crystals,Urine Rare /HPF (Few)
[2021-09-15] MEDS ORDERED: ALUMINUM/MAGNES/SIMETH MAX STR 30 ML UDCUP PO PRN (11:13)
[2021-09-15] MEDS ORDERED: DOCUSATE SODIUM 100 MG CAPSULE PO PRN (11:13)
[2021-09-15] MEDS ORDERED: PROMETHAZINE INJ 12.5 MG in SODIUM CHLORIDE 0.9% 50 ML IV PRN (11:13)
[2021-09-15] MEDS ORDERED: GLUCAGON 1 MG VIAL IM PRN (11:13)
[2021-09-15] MEDS ORDERED: MELATONIN 3 MG TABLET PO PRN (11:27)
[2021-09-15] MEDS ORDERED: DEXTROSE 10% 250 ML BAG IV PRN (11:29)
[2021-09-15 11:59] LABS: Ferritin 30.9 ng/mL (8-252)
[2021-09-15] MEDS: DEXAMETHASONE 4 MG/1 ML VIAL IV SCH (12:10)
[2021-09-15] MEDS: SODIUM CHLORIDE 0.9% 1,000 ML IV SCH (12:13)
[2021-09-15] MEDS: INSULIN LISPRO 100 UNIT/ML SUBCUT SCH ×4 (12:15→20:43)
[2021-09-15] MEDS: VANCOMYCIN INJ 1,250 MG in SODIUM CHLORIDE 0.9% 250 ML IV SCH (13:28)
[2021-09-15] MEDS ORDERED: NITROGLYCERIN SL 0.4 MG TABLET SL PRN (15:25)
[2021-09-15] MEDS ORDERED: PROCHLORPERAZINE 5 MG TABLET PO PRN (15:25)
[2021-09-15] MEDS ORDERED: PROMETHAZINE 25 MG TABLET PO PRN (15:25)
[2021-09-15] MEDS ORDERED: diphenhydrAMINE CAP 50 MG CAPSULE PO PRN (15:25)
[2021-09-15] MEDS ORDERED: traZODone 50 MG TABLET PO PRN (15:25)
[2021-09-15] MEDS ORDERED: HydrOXYzine PAMOATE 25 MG CAPSULE PO PRN (15:25)
[2021-09-15] MEDS ORDERED: CYCLOBENZAPRINE 10 MG TABLET PO PRN (15:25)
[2021-09-15] MEDS: CEFEPIME 1,000 MG in SODIUM CHLORIDE 0.9% 100 ML IV SCH ×2 (15:58→20:40)
[2021-09-15] MEDS: HYDROmorphone 1 MG/1 ML SYRINGE IV PRN ×2 (16:03→20:38)
[2021-09-15] MEDS: FUROSEMIDE 80 MG TABLET PO SCH (16:04)
[2021-09-15] MEDS ORDERED: NYSTATIN 500,000 UNIT/5 ML UDCUP PO SCH (17:00)
[2021-09-15] MEDS: chlorproMAZINE 25 MG TABLET PO SCH ×2 (18:07→20:36)
[2021-09-15] MEDS: ASCORBIC ACID 500 MG TABLET PO SCH (20:36)
[2021-09-15] MEDS: DILTIAZEM 30 MG TABLET PO SCH (20:36)
[2021-09-15] MEDS: BENZTROPINE 1 MG TABLET PO SCH (20:36)
[2021-09-15] MEDS: INSULIN GLARGINE 100 UNIT/ML SUBCUT SCH (20:37)
[2021-09-15] MEDS ORDERED: PRAVASTATIN 40 MG TABLET PO SCH (21:00)
[2021-09-15] MEDS ORDERED: CEFEPIME 1,000 MG in SODIUM CHLORIDE 0.9% 100 ML IV SCH (21:00)
[2021-09-16] MEDS: HYDROmorphone 1 MG/1 ML SYRINGE IV PRN ×5 (01:21→22:19)
[2021-09-16] MEDS: VANCOMYCIN INJ 1,250 MG in SODIUM CHLORIDE 0.9% 250 ML IV SCH ×2 (01:27→12:33)
[2021-09-16] MEDS: MUPIROCIN 2% OINT 22 GM TUBE TOP SCH ×4 (01:28→22:18)
[2021-09-16] MEDS: TRIAMCINOLONE 0.1% CREAM 15 GM TUBE TOP SCH ×3 (01:28→22:19)
[2021-09-16] MEDS: CEFEPIME 1,000 MG in SODIUM CHLORIDE 0.9% 100 ML IV SCH ×4 (03:28→22:19)
[2021-09-16 06:27] LABS: Basophils % 0.3 % (0.0-0.8); Eosinophils % 0.3 % (0.00-10.9); Hematocrit 24.9 VOL% (35.7-47.0); Hemoglobin 7.4 GM/DL (12.0-16.0); Immature Granulocytes % 0.3 %; Immature Granulocytes Absolute 0.01 #; Lymphocytes # 1.1 10*3/uL (1.4-4.0); Mean Corpuscular HGB Conc 29.7 GM/DL (32-36); Mean Corpuscular Volume 82.5 FL (87-102); Monocytes # 0.3 10*3/uL (0.11-0.8); Monocytes % 8.1 % (1.7-12.7); Platelet Count 208 T/CUMM (130-400); Red Blood Count 3.02 MC/CUMM (3.8-5.5); Red Cell Distribution Width 15.5 % (9.3-17.3); White Blood Count 3.2 T/CUMM (4-12)
[2021-09-16 06:51] LABS: Alanine Aminotransferase < 9 U/L (13-56); Albumin 2.7 G/DL (3.4-5.0); Alkaline Phosphatase 59 U/L (45-117); Aspartate Amino Transferase 8 U/L (0-37); Blood Urea Nitrogen 28 MG/DL (7-18); Calcium 8.7 MG/DL (8.5-10.1); Carbon Dioxide 24 MMOL/L (21-32); Chloride 111 MMOL/L (98-107); Cholesterol 86 MG/DL (50-200); Glucose 97 MG/DL (74-106); HDL Cholesterol 20 MG/DL (40-60); Osmolality,Calculated 286.3 MOS/KG (273-304); Potassium 4.2 MMOL/L (3.5-5.1); Sodium 141 MMOL/L (136-145); Total Protein 6.4 G/DL (6.4-8.2); Triglycerides 113 MG/DL (2-150); VLDL Cholesterol 22.6 MG/DL
[2021-09-16] MEDS: INSULIN LISPRO 100 UNIT/ML SUBCUT SCH ×7 (08:26→22:18)
[2021-09-16] MEDS ORDERED: metOLazone 5 MG TABLET PO SCH (09:00)
[2021-09-16] MEDS ORDERED: PANTOPRAZOLE 40 MG TABLET PO SCH (09:00)
[2021-09-16] MEDS: ZINC GLUCONATE 50 MG TABLET PO SCH (10:00)
[2021-09-16] MEDS: CHOLECALCIFEROL 1,000 UNIT TABLET PO SCH (10:00)
[2021-09-16] MEDS: BENZTROPINE 1 MG TABLET PO SCH ×2 (10:01→22:18)
[2021-09-16] MEDS: PANTOPRAZOLE 40 MG TABLET PO SCH (10:01)
[2021-09-16] MEDS: ROSUVASTATIN 20 MG TABLET PO SCH (10:01)
[2021-09-16] MEDS: TAMSULOSIN 0.4 MG CAPSULE PO SCH (10:01)
[2021-09-16] MEDS: ASPIRIN EC 81 MG TABLET PO SCH (10:01)
[2021-09-16] MEDS: CETIRIZINE 10 MG TABLET PO SCH (10:01)
[2021-09-16] MEDS: DAPAGLIFLOZIN 10 MG TABLET PO SCH (10:01)
[2021-09-16] MEDS: ESCITALOPRAM 10 MG TABLET PO SCH (10:01)
[2021-09-16] MEDS: chlorproMAZINE 25 MG TABLET PO SCH ×4 (10:03→22:19)
[2021-09-16] MEDS: DILTIAZEM 30 MG TABLET PO SCH (10:03)
[2021-09-16] MEDS: DEXAMETHASONE 4 MG/1 ML VIAL IV SCH (10:05)
[2021-09-16] MEDS: SODIUM CHLORIDE 0.9% 1,000 ML IV SCH (10:05)
[2021-09-16] MEDS: FUROSEMIDE 80 MG TABLET PO SCH ×2 (10:15→14:59)
[2021-09-16] MEDS: ASCORBIC ACID 500 MG TABLET PO SCH ×2 (10:15→22:19)
[2021-09-16] MEDS ORDERED: PROMETHAZINE INJ 12.5 MG in SODIUM CHLORIDE 0.9% 50 ML IV PRN (11:38)
[2021-09-16] MEDS ORDERED: PROCHLORPERAZINE 10 MG TABLET PO PRN (15:30)
[2021-09-16] MEDS: SPIRONOLACTONE 25 MG TABLET PO SCH (22:18)
[2021-09-16] MEDS: METOPROLOL TARTRATE 25 MG TABLET PO SCH (22:19)
[2021-09-16] MEDS: INSULIN GLARGINE 100 UNIT/ML SUBCUT SCH (22:19)
[2021-09-17] MEDS: VANCOMYCIN INJ 1,250 MG in SODIUM CHLORIDE 0.9% 250 ML IV SCH (01:49)
[2021-09-17] MEDS: CEFEPIME 1,000 MG in SODIUM CHLORIDE 0.9% 100 ML IV SCH ×4 (04:18→20:23)
[2021-09-17] MEDS: HYDROmorphone 1 MG/1 ML SYRINGE IV PRN ×4 (04:42→21:53)
[2021-09-17 06:03] LABS: Eosinophils % 0.5 % (0.00-10.9); Hematocrit 24.4 VOL% (35.7-47.0); Hemoglobin 7.1 GM/DL (12.0-16.0); Immature Granulocytes % 0.3 %; Immature Granulocytes Absolute 0.01 #; Lymphocytes # 1.1 10*3/uL (1.4-4.0); Lymphocytes % 29.3 % (21.3-54.2); Mean Corpuscular HGB Conc 29.1 GM/DL (32-36); Mean Corpuscular Volume 82.4 FL (87-102); Monocytes # 0.3 10*3/uL (0.11-0.8); Monocytes % 6.8 % (1.7-12.7); Neutrophils % 63.1 % (38.7-73.9); Platelet Count 204 T/CUMM (130-400); Red Blood Count 2.96 MC/CUMM (3.8-5.5); Red Cell Distribution Width 15.2 % (9.3-17.3); White Blood Count 3.7 T/CUMM (4-12)
[2021-09-17 06:44] LABS: Calcium 8.7 MG/DL (8.5-10.1); Osmolality,Calculated 287.4 MOS/KG (273-304); Potassium 3.9 MMOL/L (3.5-5.1)
[2021-09-17] MEDS ORDERED: REGADENOSON 0.4 MG/5 ML SYRINGE IV ONE (08:46)
[2021-09-17] MEDS: INSULIN LISPRO 100 UNIT/ML SUBCUT SCH ×7 (10:32→21:56)
[2021-09-17] MEDS: SODIUM CHLORIDE 0.9% 1,000 ML IV SCH ×2 (10:32→19:12)
[2021-09-17] MEDS: DEXAMETHASONE 4 MG/1 ML VIAL IV SCH (11:00)
[2021-09-17] MEDS: BENZTROPINE 1 MG TABLET PO SCH ×2 (11:25→20:23)
[2021-09-17] MEDS: ROSUVASTATIN 20 MG TABLET PO SCH (11:25)
[2021-09-17] MEDS: FUROSEMIDE 80 MG TABLET PO SCH ×2 (11:25→15:10)
[2021-09-17] MEDS: MUPIROCIN 2% OINT 22 GM TUBE TOP SCH ×3 (11:25→20:23)
[2021-09-17] MEDS: SPIRONOLACTONE 25 MG TABLET PO SCH ×2 (11:25→20:23)
[2021-09-17] MEDS: ASPIRIN EC 81 MG TABLET PO SCH (11:25)
[2021-09-17] MEDS: DAPAGLIFLOZIN 10 MG TABLET PO SCH (11:25)
[2021-09-17] MEDS: CHOLECALCIFEROL 1,000 UNIT TABLET PO SCH (11:26)
[2021-09-17] MEDS: TAMSULOSIN 0.4 MG CAPSULE PO SCH (11:26)
[2021-09-17] MEDS: chlorproMAZINE 25 MG TABLET PO SCH ×4 (11:26→20:23)
[2021-09-17] MEDS: METOPROLOL TARTRATE 25 MG TABLET PO SCH ×2 (11:26→20:23)
[2021-09-17] MEDS: TRIAMCINOLONE 0.1% CREAM 15 GM TUBE TOP SCH ×2 (11:26→20:24)
[2021-09-17] MEDS: ESCITALOPRAM 10 MG TABLET PO SCH (11:26)
[2021-09-17] MEDS: PANTOPRAZOLE 40 MG TABLET PO SCH (11:26)
[2021-09-17] MEDS: ASCORBIC ACID 500 MG TABLET PO SCH ×2 (11:26→20:23)
[2021-09-17] MEDS: ZINC GLUCONATE 50 MG TABLET PO SCH (11:28)
[2021-09-17] MEDS: CETIRIZINE 10 MG TABLET PO SCH (11:28)
[2021-09-17] MEDS ORDERED: ETOMIDATE 40 MG/20 ML VIAL IV ONE (12:31)
[2021-09-17] MEDS ORDERED: GLYCOPYRROLATE 0.4 MG/2 ML VIAL ONE (12:31)
[2021-09-17] MEDS ORDERED: PHENYLEPHRINE 1 MG/10 ML SYRINGE IV ONE (12:31)
[2021-09-17] MEDS ORDERED: propofoL 200 MG/20 ML VIAL IV ONE (12:31)
[2021-09-17] MEDS ORDERED: LIDOCAINE 2% 5 ML VIAL ONE (12:31)
[2021-09-17] MEDS ORDERED: fentaNYL 100 MCG/2 ML VIAL ONE (12:53)
[2021-09-17] MEDS ORDERED: PROMETHAZINE 25 MG/1 ML VIAL ONE (12:53)
[2021-09-17] MEDS ORDERED: MIDAZOLAM 2 MG/2 ML VIAL ONE (12:58)
[2021-09-17] MEDS ORDERED: MAGNESIUM SULF RIDER 2 GM/50 ML PREMIX IV ONE (13:00)
[2021-09-17] MEDS ORDERED: KETAMINE 500 MG/10 ML VIAL ONE (13:24)
[2021-09-17] MEDS: PROMETHAZINE INJ 12.5 MG in SODIUM CHLORIDE 0.9% 50 ML IV PRN (15:10)
[2021-09-17] MEDS: COLLAGENASE OINT 30 GM TUBE TOP SCH (17:02)
[2021-09-17] MEDS: ZINC OXIDE 16% PASTE 57 GM TUBE TOP SCH (20:23)
[2021-09-17] MEDS: INSULIN GLARGINE 100 UNIT/ML SUBCUT SCH (21:07)
[2021-09-18] MEDS: CEFEPIME 1,000 MG in SODIUM CHLORIDE 0.9% 100 ML IV SCH ×3 (02:05→14:09)
[2021-09-18] MEDS: HYDROmorphone 1 MG/1 ML SYRINGE IV PRN ×4 (02:07→22:40)
[2021-09-18 05:36] LABS: Basophils % 0.2 % (0.0-0.8); Eosinophils % 0.2 % (0.00-10.9); Hematocrit 28.3 VOL% (35.7-47.0); Hemoglobin 8.5 GM/DL (12.0-16.0); Immature Granulocytes % 0.4 %; Immature Granulocytes Absolute 0.02 #; Lymphocytes # 1.1 10*3/uL (1.4-4.0); Lymphocytes % 24.5 % (21.3-54.2); Mean Corpuscular Volume 80.4 FL (87-102); Mean Platelet Volume 12.3 FL (9.6-12.0); Monocytes # 0.2 10*3/uL (0.11-0.8); Monocytes % 5.2 % (1.7-12.7); Neutrophils % 69.5 % (38.7-73.9); Platelet Count 237 T/CUMM (130-400); Red Blood Count 3.52 MC/CUMM (3.8-5.5); Red Cell Distribution Width 15.3 % (9.3-17.3); White Blood Count 4.7 T/CUMM (4-12)
[2021-09-18 05:56] LABS: Calcium 8.8 MG/DL (8.5-10.1); Osmolality,Calculated 289.4 MOS/KG (273-304); Potassium 3.8 MMOL/L (3.5-5.1)
[2021-09-18] MEDS: FUROSEMIDE 80 MG TABLET PO SCH (08:45)
[2021-09-18] MEDS: INSULIN LISPRO 100 UNIT/ML SUBCUT SCH ×7 (08:45→20:44)
[2021-09-18] MEDS: MUPIROCIN 2% OINT 22 GM TUBE TOP SCH ×3 (09:10→20:44)
[2021-09-18] MEDS: COLLAGENASE OINT 30 GM TUBE TOP SCH (09:10)
[2021-09-18] MEDS: TRIAMCINOLONE 0.1% CREAM 15 GM TUBE TOP SCH ×2 (09:10→20:44)
[2021-09-18] MEDS ORDERED: MIDAZOLAM 2 MG/2 ML VIAL ONE ×2 (12:12→12:21)
[2021-09-18] MEDS ORDERED: fentaNYL 100 MCG/2 ML VIAL ONE (12:12)
[2021-09-18] MEDS ORDERED: KETAMINE 500 MG/10 ML VIAL ONE (12:22)
[2021-09-18] MEDS ORDERED: ETOMIDATE 40 MG/20 ML VIAL IV ONE (12:25)
[2021-09-18] MEDS: SPIRONOLACTONE 25 MG TABLET PO SCH ×2 (12:27→20:43)
[2021-09-18] MEDS: ROSUVASTATIN 20 MG TABLET PO SCH (12:28)
[2021-09-18] MEDS: DAPAGLIFLOZIN 10 MG TABLET PO SCH (12:28)
[2021-09-18] MEDS: ZINC OXIDE 16% PASTE 57 GM TUBE TOP SCH ×2 (12:28→20:44)
[2021-09-18] MEDS: LOSARTAN 25 MG TABLET PO SCH (12:28)
[2021-09-18] MEDS: ASPIRIN EC 81 MG TABLET PO SCH (12:28)
[2021-09-18] MEDS: BENZTROPINE 1 MG TABLET PO SCH ×2 (12:28→20:43)
[2021-09-18] MEDS: ESCITALOPRAM 10 MG TABLET PO SCH (12:29)
[2021-09-18] MEDS: PANTOPRAZOLE 40 MG TABLET PO SCH (12:29)
[2021-09-18] MEDS: chlorproMAZINE 25 MG TABLET PO SCH ×4 (12:29→20:43)
[2021-09-18] MEDS: TAMSULOSIN 0.4 MG CAPSULE PO SCH (12:29)
[2021-09-18] MEDS: METOPROLOL TARTRATE 25 MG TABLET PO SCH ×2 (12:29→20:43)
[2021-09-18] MEDS: ASCORBIC ACID 500 MG TABLET PO SCH ×2 (12:29→20:43)
[2021-09-18] MEDS: ZINC GLUCONATE 50 MG TABLET PO SCH (12:30)
[2021-09-18] MEDS: CHOLECALCIFEROL 1,000 UNIT TABLET PO SCH (12:30)
[2021-09-18] MEDS: CETIRIZINE 10 MG TABLET PO SCH (12:30)
[2021-09-18] MEDS: SODIUM CHLORIDE 0.9% 1,000 ML IV SCH ×2 (13:23→14:56)
[2021-09-18] MEDS: DEXAMETHASONE 4 MG/1 ML VIAL IV SCH (14:04)
[2021-09-18] MEDS: FUROSEMIDE 40 MG TABLET PO SCH (16:45)
[2021-09-18] MEDS: PROMETHAZINE INJ 12.5 MG in SODIUM CHLORIDE 0.9% 50 ML IV PRN (18:20)
[2021-09-18] MEDS ORDERED: cefTRIAXone 1,000 MG in SODIUM CHLORIDE 0.9% 100 ML IV SCH (21:00)
[2021-09-18] MEDS: INSULIN GLARGINE 100 UNIT/ML SUBCUT SCH (23:01)
[2021-09-19] MEDS: HYDROmorphone 1 MG/1 ML SYRINGE IV PRN ×2 (02:54→08:10)
[2021-09-19 05:45] LABS: Eosinophils % 0.2 % (0.00-10.9); Hematocrit 28.9 VOL% (35.7-47.0); Hemoglobin 8.6 GM/DL (12.0-16.0); Immature Granulocytes % 0.4 %; Immature Granulocytes Absolute 0.02 #; Lymphocytes # 1.2 10*3/uL (1.4-4.0); Lymphocytes % 23.3 % (21.3-54.2); Mean Corpuscular HGB Conc 29.8 GM/DL (32-36); Mean Corpuscular Volume 81.9 FL (87-102); Mean Platelet Volume 12.6 FL (9.6-12.0); Monocytes # 0.3 10*3/uL (0.11-0.8); Monocytes % 6.3 % (1.7-12.7); Neutrophils % 69.8 % (38.7-73.9); Platelet Count 230 T/CUMM (130-400); Red Blood Count 3.53 MC/CUMM (3.8-5.5); Red Cell Distribution Width 14.9 % (9.3-17.3); White Blood Count 5.1 T/CUMM (4-12)
[2021-09-19 06:13] LABS: Calcium 9.2 MG/DL (8.5-10.1); Potassium 4.3 MMOL/L (3.5-5.1)
[2021-09-19] MEDS: INSULIN LISPRO 100 UNIT/ML SUBCUT SCH ×4 (08:03→12:20)
[2021-09-19] MEDS: SODIUM CHLORIDE 0.9% 1,000 ML IV SCH ×2 (08:04→11:39)
[2021-09-19] MEDS: CHOLECALCIFEROL 1,000 UNIT TABLET PO SCH (08:06)
[2021-09-19] MEDS: chlorproMAZINE 25 MG TABLET PO SCH (08:07)
[2021-09-19] MEDS: FUROSEMIDE 40 MG TABLET PO SCH ×2 (08:07→08:11)
[2021-09-19] MEDS: DAPAGLIFLOZIN 10 MG TABLET PO SCH (08:07)
[2021-09-19] MEDS: CETIRIZINE 10 MG TABLET PO SCH (08:07)
[2021-09-19] MEDS: ESCITALOPRAM 10 MG TABLET PO SCH (08:07)
[2021-09-19] MEDS: ROSUVASTATIN 20 MG TABLET PO SCH (08:08)
[2021-09-19] MEDS: ASPIRIN EC 81 MG TABLET PO SCH (08:08)
[2021-09-19] MEDS: ASCORBIC ACID 500 MG TABLET PO SCH (08:08)
[2021-09-19] MEDS: TAMSULOSIN 0.4 MG CAPSULE PO SCH (08:09)
[2021-09-19] MEDS: ZINC GLUCONATE 50 MG TABLET PO SCH (08:09)
[2021-09-19] MEDS: BENZTROPINE 1 MG TABLET PO SCH (08:09)
[2021-09-19] MEDS: PANTOPRAZOLE 40 MG TABLET PO SCH (08:09)
[2021-09-19] MEDS: DEXAMETHASONE 4 MG/1 ML VIAL IV SCH (08:10)
[2021-09-19] MEDS: SPIRONOLACTONE 25 MG TABLET PO SCH (08:11)
[2021-09-19] MEDS: LOSARTAN 25 MG TABLET PO SCH (08:12)
[2021-09-19] MEDS: METOPROLOL TARTRATE 25 MG TABLET PO SCH (08:12)
[2021-09-19] MEDS: ZINC OXIDE 16% PASTE 57 GM TUBE TOP SCH (08:13)
[2021-09-19] MEDS: TRIAMCINOLONE 0.1% CREAM 15 GM TUBE TOP SCH (08:13)
[2021-09-19] MEDS: MUPIROCIN 2% OINT 22 GM TUBE TOP SCH (08:13)
[2021-09-19] MEDS: COLLAGENASE OINT 30 GM TUBE TOP SCH (08:14)
[2021-09-19 09:28] VITALS: BP 102/67
== END 2021-09-19 12:21 | disposition home health service (06) | DRG 659 ==
LOC: EDUNIT# → EDBD → N.ED 08:32 → SUATTDRO 11:13 → N.EDINP 11:13 → N.5E 13:27
PROVIDERS: ADMIT Internal Medicine; ATTEND Internal Medicine

== ENCOUNTER 2021-11-28 21:25 | Inpatient (IN) ==
[2021-11-28] MEDS ORDERED: KETOROLAC 30 MG/1 ML VIAL IV STA (21:51)
[2021-11-28 23:03] LABS: Basophils % 0.7 % (0.0-0.8); Eosinophils # 0.1 10*3/uL (0.0-0.87); Eosinophils % 1.5 % (0.00-10.9); Hematocrit 26.6 VOL% (35.7-47.0); Hemoglobin 7.7 GM/DL (12.0-16.0); Immature Granulocytes % 0.2 %; Immature Granulocytes Absolute 0.01 #; Lymphocytes # 1.2 10*3/uL (1.4-4.0); Lymphocytes % 26.1 % (21.3-54.2); Mean Corpuscular HGB Conc 28.9 GM/DL (32-36); Mean Corpuscular Volume 80.1 FL (87-102); Mean Platelet Volume 11.9 FL (9.6-12.0); Monocytes # 0.3 10*3/uL (0.11-0.8); Monocytes % 5.4 % (1.7-12.7); Neutrophils % 66.1 % (38.7-73.9); Platelet Count 231 T/CUMM (130-400); Red Blood Count 3.32 MC/CUMM (3.8-5.5); Red Cell Distribution Width 15.4 % (9.3-17.3); White Blood Count 4.6 T/CUMM (4-12)
[2021-11-28 23:16] LABS: INR 1.1; PT Patient Result 12.1 SECS (10.1-12.1); Partial Thromboplastin Time 26.5 SECS (23.7-32.9)
[2021-11-28 23:21] LABS: Bacteria,Urine Occasional /HPF (Few); Bilirubin,Urine Negative (Negative); Blood, Urine Negative (Negative); Glucose,Urine (UA) 50 mg/dL (Negative); Ketones,Urine Negative (Negative); Nitrite,Urine Negative (Negative); Protein,Urine Negative (Negative); RBC,Urine 8 /HPF (0-4); Squamous Epithelial Cell,Urine Occasional /HPF (0-10); Urine Appearance CLOUDY (Clear); Urine Color Yellow (Yellow); Urine Specific Gravity 1.016 (1.001-1.035); Urine Urobilinogen < 2.0 eU/dL (<2.0)
[2021-11-28 23:28] LABS: Albumin 2.9 G/DL (3.4-5.0); Bilirubin,Total 0.4 MG/DL (0.20-1.00); Calcium 8.5 MG/DL (8.5-10.1); Osmolality,Calculated 294.1 MOS/KG (273-304); Potassium 5.3 MMOL/L (3.5-5.1); Total Protein 6.6 G/DL (6.4-8.2)
[2021-11-28] MEDS ORDERED: cefTRIAXone 1,000 MG in SODIUM CHLORIDE 0.9% 100 ML IV STA (23:32)
[2021-11-28] MEDS ORDERED: PIPERACILLIN/TAZOBACTAM 3,375 MG in SODIUM CHLORIDE 0.9% 100 ML IV STA (23:34)
[2021-11-28] MEDS ORDERED: SODIUM CHLORIDE 0.9% 500 ML IV STA (23:35)
[2021-11-28 23:51] LABS: Hypochromia 1+; Platelet Estimate Normal
[2021-11-28 23:52] LABS: Ovalocytes Slight
[2021-11-28] MEDS ORDERED: ALBUTEROL/IPRATROPIUM 3 ML NEB RESP TX PRN (23:54)
[2021-11-29] MEDS: methylPREDNISolone SOD SUC 40 MG/1 ML VIAL IV SCH ×2 (01:39→12:34)
[2021-11-29] MEDS: MORPHINE 2 MG/1 ML SYRINGE IV PRN ×4 (01:41→23:12)
[2021-11-29 02:02] LABS: Barbiturates Screen,Urine Negative (Negative); Benzodiazepines Screen,Urine Negative (Negative); Cannabinoid Screen,Urine Negative (Negative); Opiate Screen,Urine Positive (Negative); Phencyclidine Screen,Urine Negative (Negative)
[2021-11-29 04:41] LABS: Basophils % 0.4 % (0.0-0.8); Eosinophils # 0.1 10*3/uL (0.0-0.87); Eosinophils % 1.3 % (0.00-10.9); Hematocrit 26.9 VOL% (35.7-47.0); Hemoglobin 7.8 GM/DL (12.0-16.0); Immature Granulocytes % 0.7 %; Immature Granulocytes Absolute 0.03 #; Lymphocytes # 0.5 10*3/uL (1.4-4.0); Lymphocytes % 11.9 % (21.3-54.2); Mean Corpuscular Volume 80.1 FL (87-102); Mean Platelet Volume 11.4 FL (9.6-12.0); Monocytes # 0.1 10*3/uL (0.11-0.8); Monocytes % 2.2 % (1.7-12.7); Neutrophils % 83.5 % (38.7-73.9); Platelet Count 214 T/CUMM (130-400); Red Blood Count 3.36 MC/CUMM (3.8-5.5); Red Cell Distribution Width 15.4 % (9.3-17.3); White Blood Count 4.6 T/CUMM (4-12)
[2021-11-29 05:05] LABS: Albumin 2.9 G/DL (3.4-5.0); Bilirubin,Total 0.5 MG/DL (0.20-1.00); Calcium 8.7 MG/DL (8.5-10.1); Osmolality,Calculated 297.1 MOS/KG (273-304); Potassium 5.6 MMOL/L (3.5-5.1); Risk Ratio 2.68; Thyroid Stimulating Hormone 1.25 uIU/ml (0.358-3.74); Total Protein 6.8 G/DL (6.4-8.2)
[2021-11-29] MEDS ORDERED: HydrOXYzine PAMOATE 25 MG CAPSULE PO PRN (07:37)
[2021-11-29] MEDS ORDERED: CYCLOBENZAPRINE 10 MG TABLET PO PRN (07:37)
[2021-11-29] MEDS ORDERED: FUROSEMIDE 40 MG/4 ML VIAL IV ONE (07:37)
[2021-11-29] MEDS ORDERED: NITROGLYCERIN SL 0.4 MG TABLET SL PRN (07:37)
[2021-11-29] MEDS ORDERED: PIPERACILLIN/TAZOBACTAM 3,375 MG in SODIUM CHLORIDE 0.9% 100 ML IV SCH (08:00)
[2021-11-29] MEDS ORDERED: GLUCAGON 1 MG VIAL IM PRN (08:07)
[2021-11-29] MEDS ORDERED: DEXTROSE 10% 250 ML BAG IV PRN (08:07)
[2021-11-29] MEDS: PIPERACILLIN/TAZOBACTAM 3,375 MG in SODIUM CHLORIDE 0.9% 100 ML IV SCH ×3 (08:50→23:32)
[2021-11-29] MEDS ORDERED: metOLazone 2.5 MG TABLET PO SCH (09:00)
[2021-11-29] MEDS ORDERED: PANTOPRAZOLE 40 MG TABLET PO SCH (09:00)
[2021-11-29] MEDS ORDERED: DAPAGLIFLOZIN 10 MG TABLET PO SCH (09:00)
[2021-11-29] MEDS ORDERED: SACUBITRIL/VALSARTAN 49-51 MG TABLET PO SCH (09:00)
[2021-11-29] MEDS ORDERED: INSULIN LISPRO 100 UNIT/ML ONE (09:03)
[2021-11-29] MEDS: PANTOPRAZOLE 40 MG TABLET PO SCH (09:23)
[2021-11-29] MEDS: ESCITALOPRAM 10 MG TABLET PO SCH (09:23)
[2021-11-29] MEDS: METOPROLOL SUCCINATE XL 25 MG TABLET PO SCH (09:23)
[2021-11-29] MEDS: CLOPIDOGREL 75 MG TABLET PO SCH (09:23)
[2021-11-29] MEDS: ASPIRIN EC 81 MG TABLET PO SCH (09:23)
[2021-11-29] MEDS: TAMSULOSIN 0.4 MG CAPSULE PO SCH (09:23)
[2021-11-29] MEDS: MUPIROCIN 2% OINT 22 GM TUBE TOP SCH ×3 (12:33→21:40)
[2021-11-29] MEDS: INSULIN LISPRO 100 UNIT/ML SUBCUT SCH ×3 (12:34→21:37)
[2021-11-29] MEDS: FUROSEMIDE 40 MG/4 ML VIAL IV SCH (17:29)
[2021-11-29] MEDS: AMITRIPTYLINE 50 MG TABLET PO SCH (21:35)
[2021-11-29] MEDS: ROSUVASTATIN 20 MG TABLET PO SCH (21:35)
[2021-11-29] MEDS: INSULIN GLARGINE 100 UNIT/ML SUBCUT SCH (21:37)
[2021-11-30] MEDS: methylPREDNISolone SOD SUC 40 MG/1 ML VIAL IV SCH (01:07)
[2021-11-30] MEDS: MORPHINE 2 MG/1 ML SYRINGE IV PRN ×4 (06:11→22:33)
[2021-11-30 06:22] LABS: Basophils % 0.6 % (0.0-0.8); Eosinophils % 0.2 % (0.00-10.9); Hematocrit 28.9 VOL% (35.7-47.0); Hemoglobin 8.3 GM/DL (12.0-16.0); Immature Granulocytes % 0.4 %; Immature Granulocytes Absolute 0.02 #; Lymphocytes # 0.8 10*3/uL (1.4-4.0); Lymphocytes % 15.9 % (21.3-54.2); Mean Corpuscular HGB Conc 28.7 GM/DL (32-36); Mean Corpuscular Volume 80.7 FL (87-102); Mean Platelet Volume 11.7 FL (9.6-12.0); Monocytes # 0.2 10*3/uL (0.11-0.8); Monocytes % 4.2 % (1.7-12.7); Neutrophils % 78.7 % (38.7-73.9); Platelet Count 229 T/CUMM (130-400); Red Blood Count 3.58 MC/CUMM (3.8-5.5); Red Cell Distribution Width 15.2 % (9.3-17.3)
[2021-11-30 06:36] LABS: Calcium 9.1 MG/DL (8.5-10.1); Potassium 5.8 MMOL/L (3.5-5.1)
[2021-11-30] MEDS: FUROSEMIDE 40 MG/4 ML VIAL IV SCH ×2 (09:02→16:21)
[2021-11-30] MEDS: INSULIN LISPRO 100 UNIT/ML SUBCUT SCH ×4 (09:31→21:50)
[2021-11-30] MEDS: ASPIRIN EC 81 MG TABLET PO SCH (09:31)
[2021-11-30] MEDS: CLOPIDOGREL 75 MG TABLET PO SCH (09:31)
[2021-11-30] MEDS: TAMSULOSIN 0.4 MG CAPSULE PO SCH (09:31)
[2021-11-30] MEDS: METOPROLOL SUCCINATE XL 25 MG TABLET PO SCH (09:31)
[2021-11-30] MEDS: MUPIROCIN 2% OINT 22 GM TUBE TOP SCH ×3 (09:31→21:02)
[2021-11-30] MEDS: ESCITALOPRAM 10 MG TABLET PO SCH (09:31)
[2021-11-30] MEDS: PANTOPRAZOLE 40 MG TABLET PO SCH (09:31)
[2021-11-30] MEDS: PIPERACILLIN/TAZOBACTAM 3,375 MG in SODIUM CHLORIDE 0.9% 100 ML IV SCH (09:32)
[2021-11-30] MEDS: DAPAGLIFLOZIN 5 MG TABLET PO SCH (09:36)
[2021-11-30] MEDS: ROSUVASTATIN 20 MG TABLET PO SCH (21:00)
[2021-11-30] MEDS: AMITRIPTYLINE 50 MG TABLET PO SCH (21:00)
[2021-11-30] MEDS: INSULIN GLARGINE 100 UNIT/ML SUBCUT SCH (21:50)
[2021-12-01] MEDS: MORPHINE 2 MG/1 ML SYRINGE IV PRN ×4 (03:43→21:10)
[2021-12-01] MEDS: INSULIN LISPRO 100 UNIT/ML SUBCUT SCH ×4 (08:37→21:17)
[2021-12-01] MEDS: ASPIRIN EC 81 MG TABLET PO SCH (09:36)
[2021-12-01] MEDS: ESCITALOPRAM 10 MG TABLET PO SCH (09:36)
[2021-12-01] MEDS: LACTULOSE 20 GM/30 ML UDCUP PO SCH ×2 (09:36→21:10)
[2021-12-01] MEDS: METOPROLOL SUCCINATE XL 25 MG TABLET PO SCH (09:36)
[2021-12-01] MEDS: CLOPIDOGREL 75 MG TABLET PO SCH (09:36)
[2021-12-01] MEDS: TAMSULOSIN 0.4 MG CAPSULE PO SCH (09:36)
[2021-12-01] MEDS: PANTOPRAZOLE 40 MG TABLET PO SCH (09:37)
[2021-12-01] MEDS: MUPIROCIN 2% OINT 22 GM TUBE TOP SCH ×3 (09:37→21:17)
[2021-12-01] MEDS: FUROSEMIDE 40 MG/4 ML VIAL IV SCH ×2 (09:37→16:16)
[2021-12-01] MEDS: DAPAGLIFLOZIN 5 MG TABLET PO SCH (12:30)
[2021-12-01] MEDS: AMITRIPTYLINE 50 MG TABLET PO SCH (21:10)
[2021-12-01] MEDS: ROSUVASTATIN 20 MG TABLET PO SCH (21:10)
[2021-12-01] MEDS: INSULIN GLARGINE 100 UNIT/ML SUBCUT SCH (21:18)
[2021-12-02] MEDS: MORPHINE 2 MG/1 ML SYRINGE IV PRN ×6 (01:14→23:00)
[2021-12-02 05:59] LABS: Calcium 8.6 MG/DL (8.5-10.1); Potassium 5.1 MMOL/L (3.5-5.1)
[2021-12-02] MEDS: INSULIN LISPRO 100 UNIT/ML SUBCUT SCH ×4 (08:53→20:45)
[2021-12-02] MEDS: LACTULOSE 20 GM/30 ML UDCUP PO SCH ×2 (09:41→21:07)
[2021-12-02] MEDS: PANTOPRAZOLE 40 MG TABLET PO SCH (09:42)
[2021-12-02] MEDS: ASPIRIN EC 81 MG TABLET PO SCH (09:42)
[2021-12-02] MEDS: ESCITALOPRAM 10 MG TABLET PO SCH (09:42)
[2021-12-02] MEDS: FUROSEMIDE 40 MG/4 ML VIAL IV SCH ×2 (09:42→15:19)
[2021-12-02] MEDS: METOPROLOL SUCCINATE XL 25 MG TABLET PO SCH (09:43)
[2021-12-02] MEDS: MUPIROCIN 2% OINT 22 GM TUBE TOP SCH ×3 (09:43→21:08)
[2021-12-02] MEDS: TAMSULOSIN 0.4 MG CAPSULE PO SCH (09:43)
[2021-12-02] MEDS: DAPAGLIFLOZIN 5 MG TABLET PO SCH (09:43)
[2021-12-02] MEDS: CLOPIDOGREL 75 MG TABLET PO SCH (09:43)
[2021-12-02] MEDS ORDERED: ONDANSETRON 4 MG/2 ML VIAL IV ONE (18:56)
[2021-12-02] MEDS: INSULIN GLARGINE 100 UNIT/ML SUBCUT SCH (20:45)
[2021-12-02] MEDS: AMITRIPTYLINE 50 MG TABLET PO SCH (21:07)
[2021-12-02] MEDS: ROSUVASTATIN 20 MG TABLET PO SCH (21:07)
[2021-12-03] MEDS: MORPHINE 2 MG/1 ML SYRINGE IV PRN ×5 (03:32→21:35)
[2021-12-03] MEDS: FUROSEMIDE 40 MG/4 ML VIAL IV SCH ×2 (08:07→15:54)
[2021-12-03] MEDS: INSULIN LISPRO 100 UNIT/ML SUBCUT SCH ×4 (08:37→21:28)
[2021-12-03] MEDS: PROMETHAZINE INJ 12.5 MG in SODIUM CHLORIDE 0.9% 50 ML IV PRN ×3 (10:49→23:18)
[2021-12-03] MEDS: LACTULOSE 20 GM/30 ML UDCUP PO SCH ×2 (10:49→21:29)
[2021-12-03] MEDS: DAPAGLIFLOZIN 5 MG TABLET PO SCH (10:50)
[2021-12-03] MEDS: ESCITALOPRAM 10 MG TABLET PO SCH (10:51)
[2021-12-03] MEDS: TAMSULOSIN 0.4 MG CAPSULE PO SCH (10:51)
[2021-12-03] MEDS: METOPROLOL SUCCINATE XL 25 MG TABLET PO SCH (10:52)
[2021-12-03] MEDS: PANTOPRAZOLE 40 MG TABLET PO SCH (10:52)
[2021-12-03] MEDS: CLOPIDOGREL 75 MG TABLET PO SCH (10:52)
[2021-12-03] MEDS: ASPIRIN EC 81 MG TABLET PO SCH (10:52)
[2021-12-03] MEDS: MUPIROCIN 2% OINT 22 GM TUBE TOP SCH ×3 (10:53→21:29)
[2021-12-03] MEDS: diphenhydrAMINE 50 MG/1 ML VIAL IV PRN ×2 (17:21→23:23)
[2021-12-03] MEDS: INSULIN GLARGINE 100 UNIT/ML SUBCUT SCH (21:27)
[2021-12-03] MEDS: ROSUVASTATIN 20 MG TABLET PO SCH (21:29)
[2021-12-03] MEDS: AMITRIPTYLINE 50 MG TABLET PO SCH (21:29)
[2021-12-03] MEDS: MENTHOL/ZINC OXIDE OINT 71 GM JAR TOP SCH (21:29)
[2021-12-04] MEDS: MORPHINE 2 MG/1 ML SYRINGE IV PRN ×5 (01:43→21:47)
[2021-12-04] MEDS: diphenhydrAMINE 50 MG/1 ML VIAL IV PRN ×2 (05:25→23:33)
[2021-12-04] MEDS: PROMETHAZINE INJ 12.5 MG in SODIUM CHLORIDE 0.9% 50 ML IV PRN ×3 (05:26→23:37)
[2021-12-04 06:10] LABS: Calcium 9.2 MG/DL (8.5-10.1); Osmolality,Calculated 299.1 MOS/KG (273-304); Potassium 4.3 MMOL/L (3.5-5.1)
[2021-12-04] MEDS: INSULIN LISPRO 100 UNIT/ML SUBCUT SCH ×4 (07:25→21:52)
[2021-12-04] MEDS: FUROSEMIDE 40 MG/4 ML VIAL IV SCH ×2 (08:14→17:03)
[2021-12-04] MEDS: MUPIROCIN 2% OINT 22 GM TUBE TOP SCH ×3 (08:43→21:49)
[2021-12-04] MEDS: ASPIRIN EC 81 MG TABLET PO SCH (08:43)
[2021-12-04] MEDS: MENTHOL/ZINC OXIDE OINT 71 GM JAR TOP SCH ×2 (08:43→21:49)
[2021-12-04] MEDS: LACTULOSE 20 GM/30 ML UDCUP PO SCH ×2 (08:44→21:49)
[2021-12-04] MEDS: PANTOPRAZOLE 40 MG TABLET PO SCH (08:44)
[2021-12-04] MEDS: DAPAGLIFLOZIN 5 MG TABLET PO SCH (08:44)
[2021-12-04] MEDS: CLOPIDOGREL 75 MG TABLET PO SCH (08:44)
[2021-12-04] MEDS: TAMSULOSIN 0.4 MG CAPSULE PO SCH (08:44)
[2021-12-04] MEDS: ESCITALOPRAM 10 MG TABLET PO SCH (08:44)
[2021-12-04] MEDS: METOPROLOL SUCCINATE XL 25 MG TABLET PO SCH ×2 (11:24→11:37)
[2021-12-04] MEDS: AMITRIPTYLINE 50 MG TABLET PO SCH (21:46)
[2021-12-04] MEDS: ROSUVASTATIN 20 MG TABLET PO SCH (21:46)
[2021-12-04] MEDS: INSULIN GLARGINE 100 UNIT/ML SUBCUT SCH (21:52)
[2021-12-05] MEDS: MORPHINE 2 MG/1 ML SYRINGE IV PRN ×2 (02:42→09:00)
[2021-12-05] MEDS: INSULIN LISPRO 100 UNIT/ML SUBCUT SCH (07:30)
[2021-12-05] MEDS: PROMETHAZINE INJ 12.5 MG in SODIUM CHLORIDE 0.9% 50 ML IV PRN (08:52)
[2021-12-05] MEDS: diphenhydrAMINE 50 MG/1 ML VIAL IV PRN (08:53)
[2021-12-05] MEDS: LACTULOSE 20 GM/30 ML UDCUP PO SCH (08:53)
[2021-12-05] MEDS: FUROSEMIDE 40 MG/4 ML VIAL IV SCH (08:54)
[2021-12-05] MEDS: PANTOPRAZOLE 40 MG TABLET PO SCH (08:54)
[2021-12-05] MEDS: DAPAGLIFLOZIN 5 MG TABLET PO SCH (08:55)
[2021-12-05] MEDS: TAMSULOSIN 0.4 MG CAPSULE PO SCH (08:56)
[2021-12-05] MEDS: ESCITALOPRAM 10 MG TABLET PO SCH (08:56)
[2021-12-05] MEDS: METOPROLOL SUCCINATE XL 25 MG TABLET PO SCH (08:56)
[2021-12-05] MEDS: CLOPIDOGREL 75 MG TABLET PO SCH (08:56)
[2021-12-05] MEDS: ASPIRIN EC 81 MG TABLET PO SCH (08:56)
[2021-12-05] MEDS ORDERED: HEPARIN LOCK FLUSH 500 UNIT/5 ML SYRINGE IV ONE (09:51)
[2021-12-05 12:16] VITALS: BP 99/67
== END 2021-12-05 12:37 | disposition home health service (06) | DRG 291 ==
LOC: N.ED 21:25 → N.EDINP 23:50 → SUATTDRO 23:50 → N.5E 11-29 08:48
PROVIDERS: ADMIT Internal Medicine; ATTEND Internal Medicine Geriatric Medicine